=== PATIENT | male | born 1955 | race Caucasian/White ===

== ENCOUNTER 2018-12-27 14:56 | Emergency (ER) | payer OTHER, SELFPAY ==
[2018-12-27 15:02] VITALS: BP 112/68; PULSE 53; RESP 16; TEMP 36.8; O2SAT 100
--- NOTE | 2018-12-27 15:34 | ED_ITS ---
HPI - Dizziness General Chief Complaint: Dizziness Stated Complaint: dizziness during physical therapy Time Seen by Provider: 12/27/18 15:26 Source: patient Mode of arrival: Ambulatory Limitations: no limitations History of Present Illness HPI Narrative: 63-year-old male here for evaluation of lightheadedness. Patient states that it occurred after he went through physical therapy today. He recently had a CVA. Has visual deficits from this but no motor their deficits. Physical therapist took his blood pressure at home and they feel like his blood pressure was low. Patient denies any chest pain or shortness breath time. No numbness tingling in hands or feet. Related Data Home Medications Medication Instructions Recorded Confirmed amlodipine 10 mg PO DAILY 12/27/18 12/27/18 apixaban [Eliquis] 5 mg PO BID 12/27/18 12/27/18 atorvastatin 40 mg PO DAILY 12/27/18 12/27/18 hydrochlorothiazide 25 mg PO DAILY 12/27/18 12/27/18 levetiracetam 1,000 mg PO BID 12/27/18 12/27/18 losartan 50 mg PO DAILY 12/27/18 12/27/18 potassium chloride 10 meq PO DAILY 12/27/18 12/27/18 Allergies Allergy/AdvReac Type Severity Reaction Status Date / Time No Known Drug Allergies Allergy Verified 12/27/18 15:07 Review of Systems Constitutional Constitutional: Denies fever(s), Denies headache(s) and Denies weakness ENT Ears, Nose, Mouth, and Throat: Denies vertigo, Reports dizziness, Denies headache(s) and Reports disequilibrium Cardiovascular Cardiovascular: Denies chest pain, Denies syncope, Denies edema, Denies palpitations and Denies dyspnea Respiratory Respiratory: Denies cough and Denies dyspnea Gastrointestinal Gastrointestinal: Denies abdominal pain, Denies nausea and Denies vomiting Musculoskeletal Musculoskeletal: Denies myalgias, Denies arthralgias and Denies numbness Integumentary/Breasts Skin/Breast: Denies lesions and Denies rash Neurologic Neurologic: Denies confusion, Denies vertigo, Reports dizziness, Denies syncope, Denies headache(s), Denies numbness, Reports disequilibrium and Denies weakness Psychiatric Psychiatric: Denies confusion Endocrine Endocrine: Denies palpitations Hematologic/Lymphatic Hematologic/Lymphatic: Denies easy bleeding and Denies easy bruising [facility] Medical History CVA (cerebral vascular accident) (Acute) Hypertension (Acute) Social History Smoking Status: Never smoker Social History Smoking Status: Never smoker Exam Initial Vital Signs Initial Vital Signs: Vital Signs Temperature 98.3 F 12/27/18 15:02 Pulse Rate 53 L 12/27/18 15:02 Respiratory Rate 16 12/27/18 15:02 Blood Pressure 112/68 12/27/18 15:02 Pulse Oximetry 100 12/27/18 15:02 Const General: cooperative, comfortable, well developed and well groomed Orientation: alert, awake and oriented x3 HENMT Head: normal to inspection and normocephalic Resp Effort & Inspection: normal respiratory effort Auscultation: clear to auscultation bilaterally Cardio Rate: bradycardic Rhythm: regular rhythm Pulses: radial pulses present GI Inspection: non-distended Palpation: soft and No firm Skin Lesions: no lesions Rashes: no rashes Neuro General: alert, awake and oriented x3 Cognition: normal cognition Speech: speech normal Gait: normal gait Motor: muscle tone normal throughout Sensory Exam: no sensory deficits noted Other: Other than his visual deficits which are not new has normal cranial nerve exam Extrem General: normal to inspection and capillary refill normal Psych Appearance: grossly normal and well kempt Course Orders Ordered: ED Orders 12/27/18 15:04 EKG-12 Lead Stat 12/27/18 15:40 Basic Metabolic Panel Stat Complete Blood Count AUTO DIFF Stat Partial Thromboplastin Time Stat Prothrombin Time INR Stat Troponin I Stat Vital Signs Vital signs: Vital Signs - 8 hr 12/27/18 15:02 12/27/18 16:02 Temperature 98.3 F Pulse Rate 53 L Pulse Rate [Orthostatic Lying] 57 L Pulse Rate [Orthostatic Sitting] 58 L Pulse Rate [Orthostatic Standing] 56 L Respiratory Rate 16 Blood Pressure 112/68 Blood Pressure [Orthostatic Lying] 114/74 Blood Pressure [Orthostatic Sitting] 109/65 Blood Pressure [Orthostatic Standing] 97/60 Pulse Oximetry 100 MDM - Dizziness Lab Data Attestation: I reviewed the patient's lab results. Result diagrams: 12/27/18 15:40 12/27/18 15:40 Labs: Lab Results 12/27/18 12/27/18 12/27/18 Range/Units 15:40 15:40 15:40 WBC 9.3 (4.5-11.0) X10^3/uL RBC 4.97 (4.5-5.9) X10^6/uL Hgb 15.5 (13.5-17.5) g/dL Hct 44.2 (41-53) % MCV 89.1 (80-100) fL MCH 31.3 (26-34) PG MCHC 35.1 (30-36) % RDW 14.0 (11.6-14.8) % Plt Count 388 (150-400) X10^3/uL Neut % (Auto) 68.2 (50-75) % Lymph % (Auto) 18.5 L (25-40) % Victoria % (Auto) 10.9 (3-14) % Eos % (Auto) 1.8 L (2-4) % Baso % (Auto) 0.6 (0-2) % Neut # (Auto) 6300 (8638-2511) /uL Lymph # (Auto) 1700 (2159-0631) /uL Victoria # (Auto) 1000 H (0-900) /uL Eos # (Auto) 200 (0-450) /uL Baso # (Auto) 100 (0-100) /uL PT 17.7 H (10.1-12.7) SECONDS INR 1.5 H (0.9-1.3) APTT 36 (26.4-36.2) SECONDS Sodium 139 (137-145) mmol/L Potassium 4.1 (3.4-5.1) mmol/L Chloride 97 L (98-107) mmol/L Carbon Dioxide 30 (22-32) mmol/L BUN 40 H (9-20) mg/dL Creatinine 2.10 H (0.66-1.25) mg/dL Estimated GFR 32.0 L (>60) mL/min BUN/Creatinine Ratio 19.0 (6-22) Glucose 114 H (80-110) mg/dL Calcium 10.4 H (8.4-10.2) mg/dL Troponin I < 0.012 (0.01-0.034) ng/mL ECG Data Attestation: I personally reviewed and interpreted this ECG as follows: Prior ECG tracings: not available for review Interpretation: Sinus bradycardia Ventricular rate of 54 Normal axis Normal QRS Normal QTC No ST T wave changes MDM Narrative Medical decision making narrative: Other than his visual deficits patient had her relatively normal neurologic exam. Patient did not specifically meet criteria for orthostatic hypotension however his blood pressure did drop as he stood up. He was able to ambulate around the emergency department without problems. I do suspect that his symptoms today are related to his blood pressure medication. He has only been on these medications for the past 1-1.5 weeks since his CVA. I do have a low suspicion that he had a new CVA today given his history and physical exam. We will hold on further workup for now. He is going to increase his fluid intake. Is going to continue his medications. He does have a primary provider that he is going to follow up with. He expressed understanding and agreement with plan. Discharge Plan Departure Patient Disposition: Home Clinical Impression: Lightheadedness Discharge Date/Time: 12/27/18 17:17 Instructions: DI for Dizziness-Nonvertigo Activity Restrictions/Additional Instructions: I recommend you continue all of your medications as directed. Continue the other things we talked about to include being careful going from laying to sit ting and sitting to standing and also staying hydrated. Contact your primary provider for a follow-up. Return to the emergency department for any new or worsening symptoms Prescriptions: No Action losartan 50 mg tablet 50 mg PO DAILY RF: 0 atorvastatin 40 mg tablet 40 mg PO DAILY RF: 0 potassium chloride 10 mEq tablet extended release 10 meq PO DAILY RF: 0 amlodipine 10 mg tablet 10 mg PO DAILY RF: 0 hydrochlorothiazide 25 mg tablet 25 mg PO DAILY RF: 0 levetiracetam 1,000 mg tablet 1,000 mg PO BID RF: 0 Eliquis 5 mg tablet 5 mg PO BID RF: 0 Referrals: Karen Alexandra [Primary Care Provider] -
[2018-12-27 15:47] LABS: Add Manual Diff / Slide Review NO; Basophils Absolute Auto 100 /uL (0-100); Basophils Percent Auto 0.6 % (0-2); Eosinophils Absolute Auto 200 /uL (0-450); Eosinophils Percent Auto 1.8 % (2-4); Hematocrit 44.2 % (41-53); Hemoglobin 15.5 g/dL (13.5-17.5); Lymphocytes Absolute Auto 1700 /uL (1100-4500); Lymphocytes Percent Auto 18.5 % (25-40); Mean Corpuscular HGB Conc 35.1 % (30-36); Mean Corpuscular Hemoglobin 31.3 PG (26-34); Mean Corpuscular Volume 89.1 fL (80-100); Monocytes Absolute Auto 1000 /uL (0-900); Monocytes Percent Auto 10.9 % (3-14); Neutrophils Absolute Auto 6300 /uL (1500-7000); Neutrophils Percent Auto 68.2 % (50-75); Platelet Count 388 X10^3/uL (150-400); Red Blood Cell Count 4.97 X10^6/uL (4.5-5.9); White Blood Cell Count 9.3 X10^3/uL (4.5-11.0)
[2018-12-27 15:58] LABS: INR 1.5 (0.9-1.3); Prothrombin Time 17.7 SECONDS (10.1-12.7)
[2018-12-27 16:00] LABS: PTT Partial Thromboplastin Tim 36 SECONDS (26.4-36.2)
[2018-12-27 16:02] VITALS: BP 109/65; BP 114/74; BP 97/60; PULSE 56; PULSE 57; PULSE 58
[2018-12-27 16:04] LABS: Blood Urea Nitrogen 40 mg/dL (9-20); Calcium 10.4 mg/dL (8.4-10.2); Carbon Dioxide 30 mmol/L (22-32); Chloride 97 mmol/L (98-107); Glucose 114 mg/dL (80-110); HEMOLYSIS < 15 (0-50); Potassium 4.1 mmol/L (3.4-5.1); Sodium 139 mmol/L (137-145)
[2018-12-27 16:15] LABS: Troponin I < 0.012 ng/mL (0.01-0.034)
--- NOTE | 2018-12-27 17:20 | PC.NURSE ---
pt states had CVA 2 weeks ago and on several new medications.
== END 2018-12-27 17:17 | disposition home or self-care (01) ==
PROVIDERS: Emergency Provider Emergency Medicine; PCP Acupuncturist
DX: R42 Dizziness and giddiness (principal)
CPT/HCPCS: 36415; 80048; 84484; 85025; 85610; 85730; 93005; 99283; 99284

== ENCOUNTER 2019-03-12 14:30 | Outpatient (RCR) | payer OTHER, SELFPAY ==
--- NOTE | 2018-12-26 17:51 | PT.OIE ---
Current Diagnoses Cerebral infarction, unspecified (12/25/18) Visit Care Team Role Provider Type Karen Alexandra Primary Care Provider Non-Staff Specialty: Family Practice Address: [address] [place] [address], [facility] Email: Doctor Crystal MD Attending Provider Non-Staff Specialty: Medical Address: Phone: Fax: Email: Physical Therapy Initial Evaluation PT-OP-A Visit Information Start: 12/25/18 09:04 Freq: Status: Active Protocol: Document 12/25/18 11:15 [facility] (Rec: 12/26/18 14:24 [facility] [email or web address]) Out-Patient Physical Therapy Visit Information Visit Information Visit Type Initial Evaluation Visit Note 63 year old male who was admitted to [facility] via ER on with c/o left VF defect and neglect as well as impaired mobility, left sided weakness, impaired cognition, and visual deficits ( left hemianopsia). Head CT showed right P2-3 thrombus and right vertebral artery occlusion. Diagnosis of a right occipital stroke. He was discharged from last week and came up to [place] with his to stay with her daughter while he recovers. He and his live in [place] area Visit Start Time 11:15 Visit Stop Time 12:00 Total Visit Minutes 45 Visit Number 1 Evaluation Information Evaluation Date 12/25/18 PT-OP-B Current Condition Start: 12/25/18 09:04 Freq: Status: Active Protocol: Document 12/25/18 11:15 [facility] (Rec: 12/26/18 14:24 [facility] [email or web address]) Current Condition History of Current Condition Onset Date 12/08/18 History of Current Condition 63 year old male s/p right occipital stroke on 12/08/18(CTA head and neck showed L veretebral aretry segmental occlusion and occlusion of the right CLINICAL RESEARCH NURSE COORDINATOR) He was discharged on 12/18/18 from [facility] where he underwent neuro rehab. His greatest complaint at this time is left sided visual field cut and left sided scanning. The patients was present for his evaluation and she notes Alvin is significantly fatigued during the day. The drive from [place] to [place] was a lot of sensory overload for him and he had a very severe headache when they arrived in [place]. He is still getting headaches with too much stimulation. The headaches are behind his left eye. He also notes that he will become dizzy and lean to the left into a wall for support. He was sent to PT for gait and balance training especially with navigation in more complex environments as he is limited with his visual impairments. He is also seeing speech and OT. Other past medical history includes HTN, seizure, splenic lesions of unknown etiology, Bradycardia Treatment Goals Patient/Caregiver Goals Alvin's goals include improved vision out of the left eye, improved energy, decreased fatigue and dizzyness, decreased c/o headaches Prior Functional Status Baseline Function- ADL's Independent Baseline Function- Mobility Independent PT-OP-D Balance Start: 12/26/18 13:56 Freq: Status: Active Protocol: Document 12/25/18 11:15 [facility] (Rec: 12/26/18 14:24 [facility] [email or web address]) Collazo Balance Assessment Evaluation Sitting to Standing Ability Independent w/out Hands Unsupported Stance Supervision- 2 minutes Sitting Unsupported, Feet on Floor Safely- 2 minutes Standing to Sitting Ability Safely, Minimal Hand Use Transfer Ability Safely, Hand Use Unsupported Stance- Eyes Closed Safely, With Eyes Open Unsupported Stance- Eyes Open Independent, 1 minute Reaching Forward Standing Safely, 5 inches Pick- Up Object From Floor Supervision Look Behind Shoulder - Standing Shifts Weight Well Turning 360 Degrees Turns Bilateral, < 4 secs Unsupported Stance, Alternating Feet on 4 Steps w/Supervision Stair Unsupported Tandem Stance Small Step- 30 seconds Unilateral Leg Stance Lifts Leg/Holds > 3 secs Total Score Collazo Total Score (out of 56 points) 43 Collazo Impairment Rating 40 to 59% Impaired (Score 23- 33) PT-OP-G Mobility & Gait Start: 12/25/18 09:04 Freq: Status: Active Protocol: Document 12/25/18 13:00 [facility] (Rec: 12/26/18 17:10 [facility] [email or web address]) OP Mobility Evaluation Bed Mobility Rolling WNL Supine to and from Sit WNL IND Functional Movements Squats able to perform a squat and lunge but does lose balance a little on the lunge OP Gait Assessment Comments Gait Comments with head turns during Gait Alvin did find himself veering off to the left. He has difficulty scanning objects on his left while walking PT-OP-H Neuro Start: 12/25/18 09:04 Freq: Status: Active Protocol: Document 12/25/18 13:00 [facility] (Rec: 12/26/18 17:11 [facility] [email or web address]) Sensation Evaluation Gross Sensation Gross Sensation WNL Muscle Tone Tone Assessment Left Upper Extremity Flexor Tone Description Normal Extensor Tone Description Normal PT-OP-M Strength Start: 12/26/18 13:56 Freq: Status: Active Protocol: Document 12/25/18 13:00 [facility] (Rec: 12/26/18 17:10 [facility] [email or web address]) Cervical Spine Strength Cervical Spine Manual Muscle Testing Reason Not Measured WFL Elbow/Forearm Strength Elbow and Forearm Manual Muscle Testing Right Flexion (C6) 5 Normal Extension (C7) 5 Normal Pronation 5 Normal Supination 5 Normal Left Flexion (C6) 5 Normal Extension (C7) 5 Normal Pronation 5 Normal Supination 5 Normal Hip Strength Hip Manual Muscle Testing Right Flexion (L2) 4 Good Extension (S1) 4 Good Abduction 4 Good Left Flexion (L2) 4 Good Extension (S1) 4 Good Abduction 4 Good Adduction 5 Normal External Rotation 5 Normal Internal Rotation 5 Normal Knee Strength Knee Manual Muscle Testing Right Flexion (S2) 5 Normal Extension (L3) 5 Normal Left Flexion (S2) 4+ Good+ Extension (L3) 4+ Good+ PT-OP-T Assessment and Plan Start: 12/26/18 17:11 Freq: Status: Active Protocol: Document 12/25/18 17:11 [facility] (Rec: 12/26/18 17:14 [facility] [email or web address]) Physical Therapy Assessment Rehab Potential Rehabilitation Potential Good Evaluation Complexity Number of Personal Factors/Comorbidities 1-2 Number of Body Systems Impaired 3 Clinical Presentation at Evaluation Evolving Impairments Impairments Activity Tolerance,Balance, Functional Activities,Gait, Vestibular,Visual Motor Other Impairments per report from pt needed min to moderate cuing for pathfinding in simple environments and max cuing in new environments. Today with gait assessment he was able to follow commands but we haven' t yet tried navigating in more crowed environments Goals Three Impairment difficulty with left sided scanning activities for community mobility Billposting Supervisor Goal (LTG) Improve navigation and left sided scanning for safety ambulating in the community LTG Duration 8 weeks Two Impairment fatigue limiting endurance and poor control with stand to sit once fatigued Long-Term Goal (LTG) Alvin is able to increase endurance to tolerate 45 min of higher level balance training and exercise LTG Duration 8 weeks One Impairment Decreased balance with 43/56 Collazo balance test Billposting Supervisor Goal (LTG) Alvin is able to increase his score on the Collazo balance test by 8-10 points LTG Duration 8 weeks Assessment Summary Assessment Alvin is a 63 year old malw s/o right occipital stroke, admitted to [facility] on 12/08/18. CTA head and neck showed L vertebral artery segmental occlusion and occlusion of the right CLINICAL RESEARCH NURSE COORDINATOR. He was transvered to [facility] 12/14 for rehab and was [place] . Alvin lives with his spouse in [place] however is staying in [place] at this time with his 's daughter. His chief complaint today is of left visual field deficits, left sided orbital headaches, easily becomming over stimulated with riding in a car and high fatigue levels . He is limited and impaired by his reading ability, difficulty using signs to help navigate. With evaluation today Alvin did show some minor difficulties with balance but he reports he has always had trouble with things like heel toe walk so I am not sure of what his full base line it. He has difficulty with tandem stance activities and single leg balance. His vision impairment makes it difficult to navigate through more complex environments but today with gait evaluation he did not demonstrate any loss of balance. He did seem very fatigued following balance exercises and needs cues to sit without plopping down. He will benefit from PT to address higher level balance issues, stragegies for safely managing his environment, and providing necessary family education. Physical Therapy Plan Frequency and Duration Frequency of Treatment 3x/Week Duration of Treatment 8 Plan of Care Start Date 12/25/18 Plan of Care End Date 02/19/19 Therapeutic Interventions Therapeutic Interventions Balance Training,Gait Training ,Home Exercise Program, Neuromuscular Re-education, Patient/Caregiver Education, Self-Care/Home Management, Therapeutic Exercises, Vestibular Rehabilitation
--- NOTE | 2018-12-27 18:01 | PT.OTN ---
Current Diagnoses Cerebral infarction, unspecified (12/27/18) Physical Therapy Treatment Note PT-OP-A Visit Information Start: 12/25/18 09:04 Freq: Status: Active Protocol: Document 12/27/18 17:51 [facility] (Rec: 12/27/18 18:01 [facility] [email or web address]) Out-Patient Physical Therapy Visit Information Visit Information Visit Type Treatment Note Visit Start Time 13:52 Visit Stop Time 14:56 Total Visit Minutes 64 Visit Number 2 Number of INDUSTRIAL TECHNICIAN Visits 0 PT-OP-B Current Condition Start: 12/25/18 09:04 Freq: Status: Active Protocol: Document 12/25/18 11:15 [facility] (Rec: 12/26/18 14:24 [facility] [email or web address]) Current Condition History of Current Condition Onset Date 12/08/18 History of Current Condition 63 year old male s/p right occipital stroke on 12/08/18(CTA head and neck showed L veretebral aretry segmental occlusion and 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 His greatest complaint at this time is left sided visual field cut and left sided scanning. The patients was present for his evaluation and she notes Alvin is significantly fatigued during the day. The drive from [place] to [place] was a lot of sensory overload for him and he had a very severe headache when they arrived in [place]. He is still getting headaches with too much stimulation. The headaches are behind his left eye. He also notes that he will become dizzy and lean to the left into a wall for support. He was sent to PT for gait and balance training especially with navigation in more complex environments as he is limited with his visual impairments. He is also seeing speech and OT. Other past medical history includes HTN, seizure, splenic lesions of unknown etiology, Bradycardia Treatment Goals Patient/Caregiver Goals Alvin's goals include improved vision out of the left eye, improved energy, decreased fatigue and dizzyness, decreased c/o headaches Prior Functional Status Baseline Function- ADL's Independent Baseline Function- Mobility Independent PT-OP-C Subjective Start: 12/25/18 09:04 Freq: Status: Active Protocol: Document 12/27/18 17:51 [facility] (Rec: 12/27/18 18:01 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 PT-OP-D Balance Start: 12/26/18 13:56 Freq: Status: Active Protocol: Document 12/25/18 11:15 [facility] (Rec: 12/26/18 14:24 [facility] [email or web address]) Collazo Balance Assessment Evaluation Sitting to Standing Ability Independent w/out Hands Unsupported Stance Supervision- 2 minutes Sitting Unsupported, Feet on Floor Safely- 2 minutes Standing to Sitting Ability Safely, Minimal Hand Use Transfer Ability Safely, Hand Use Unsupported Stance- Eyes Closed Safely, With Eyes Open Unsupported Stance- Eyes Open Independent, 1 minute Reaching Forward Standing Safely, 5 inches Pick- Up Object From Floor Supervision Look Behind Shoulder - Standing Shifts Weight Well Turning 360 Degrees Turns Bilateral, < 4 secs Unsupported Stance, Alternating Feet on 4 Steps w/Supervision Stair Unsupported Tandem Stance Small Step- 30 seconds Unilateral Leg Stance Lifts Leg/Holds > 3 secs Total Score Collazo Total Score (out of 56 points) 43 Collazo Impairment Rating 40 to 59% Impaired (Score 23- 33) PT-OP-G Mobility & Gait Start: 12/25/18 09:04 Freq: Status: Active Protocol: Document 12/25/18 13:00 [facility] (Rec: 12/26/18 17:10 [facility] [email or web address]) OP Mobility Evaluation Bed Mobility Rolling WNL Supine to and from Sit WNL IND Functional Movements Squats able to perform a squat and lunge but does lose balance a little on the lunge OP Gait Assessment Comments Gait Comments with head turns during Gait Alvin did find himself veering off to the left. He has difficulty scanning objects on his left while walking PT-OP-H Neuro Start: 12/25/18 09:04 Freq: Status: Active Protocol: Document 12/25/18 13:00 [facility] (Rec: 12/26/18 17:11 [facility] [email or web address]) Sensation Evaluation Gross Sensation Gross Sensation WNL Muscle Tone Tone Assessment Left Upper Extremity Flexor Tone Description Normal Extensor Tone Description Normal PT-OP-M Strength Start: 12/26/18 13:56 Freq: Status: Active Protocol: Document 12/25/18 13:00 [facility] (Rec: 12/26/18 17:10 [facility] [email or web address]) Cervical Spine Strength Cervical Spine Manual Muscle Testing Reason Not Measured WFL Elbow/Forearm Strength Elbow and Forearm Manual Muscle Testing Right Flexion (C6) 5 Normal Extension (C7) 5 Normal Pronation 5 Normal Supination 5 Normal Left Flexion (C6) 5 Normal Extension (C7) 5 Normal Pronation 5 Normal Supination 5 Normal Hip Strength Hip Manual Muscle Testing Right Flexion (L2) 4 Good Extension (S1) 4 Good Abduction 4 Good Left Flexion (L2) 4 Good Extension (S1) 4 Good Abduction 4 Good Adduction 5 Normal External Rotation 5 Normal Internal Rotation 5 Normal Knee Strength Knee Manual Muscle Testing Right Flexion (S2) 5 Normal Extension (L3) 5 Normal Left Flexion (S2) 4+ Good+ Extension (L3) 4+ Good+ PT-OP-Q Treatments Start: 12/26/18 17:11 Freq: Status: Active Protocol: Document 12/27/18 17:51 [facility] (Rec: 12/27/18 18:01 [facility] [email or web address]) Gym Equipment Shuttle Balance blue clips Details fwd: WBOS & NBOS Comments w/head turns Therapeutic Exercises Standing Exercises lunges Side bilateral Reps/Minutes 10 squats Standing Exercise Name w/ rail in front Side bilateral Reps/Minutes 12 heel raises Side bilateral Reps/Minutes 8 Neuro Re-Education Treatment Balance Activities head turns Details walking hallways with horizontal & vertical head turns Reps/Duration 4x50ft 2 Details NBOS, staggered stance standing & tandem standing Comments done B with significant difficulty with tandem stance 1 Details hurdles Comments 1x without and 5x w/blue and green tpads btwn Self-Care/Home Management Treatment Education Other Education edu on importance of strengthening exercises Activities Self-Care/Home Management Activities BP taken 3 times and 1x attempted in standing but pt had to sit before BP complete. Edu on needing to be seen by PT-OP-T Assessment and Plan Start: 12/26/18 17:11 Freq: Status: Active Protocol: Document 12/27/18 17:51 [facility] (Rec: 12/27/18 18:01 [facility] [email or web address]) Physical Therapy Assessment Goals Three Impairment difficulty with left sided scanning activities for community mobility Lead Engineer Goal (LTG) Improve navigation and left sided scanning for safety ambulating in the community LTG Duration 8 weeks Two Impairment fatigue limiting endurance and poor control with stand to sit once fatigued Half-Way Goal (LTG) Alvin is able to increase endurance to tolerate 45 min of higher level balance training and exercise LTG Duration 8 weeks One Impairment Decreased balance with 43/56 Collazo balance test Lead Engineer Goal (LTG) Alvin is able to increase his score on the Collazo balance test by 8-10 points LTG Duration 8 weeks Assessment Summary Assessment Pt had difficulty with balance tasks, especially with changes in JOSEPH or unstable surfaces. He fatigued with exercise and would require a standing or sitting rest break or change of activity. Pt completed entire session feeling okay w/ no c/o lightheadedness or dizziness until after last exercise. Pt sat down and BP was taken and was 124/62, which is low for patient. He was given water and rested. He felt better, so stood and asked about an exercise for home for his calves. D/t pt still feeling okay, pt was given calf raises and was able to do about 8 before starting to feel light headed again so was seated. Bp was 122/62. got his sun glasses to help with stimuli and pt reported feeling better . Stood again but felt lightheaded so sat again and BP was 100/58. Discussed with pt and re: going to ER d/ t low BP and lightheaded feeling when standing. They were agreeable, so pt was transferred to a chair and brought to ER to check in. Pt no longer felt lightheaded sitting and was left with and ER staff. Physical Therapy Plan Frequency and Duration Frequency of Treatment 3x/Week Duration of Treatment 8 Plan of Care Start Date 12/25/18 Plan of Care End Date 02/19/19 Next Visit Focus/Plan Next Note Type Treatment Note Next Visit Plan Work on unstable surface training, head turns or EC in staggered stance or NBOS
--- NOTE | 2019-01-01 09:52 | PT.OTN ---
Current Diagnoses Cerebral infarction, unspecified (01/01/19) Physical Therapy Treatment Note PT-OP-A Visit Information Start: 12/25/18 09:04 Freq: Status: Active Protocol: Document 01/01/19 09:10 [facility] (Rec: 01/01/19 09:49 [facility] [id number]) Out-Patient Physical Therapy Visit Information Visit Information Visit Type Treatment Note Visit Start Time 09:00 Visit Stop Time 09:45 Total Visit Minutes 45 Visit Number 3 PT-OP-B Current Condition Start: 12/25/18 09:04 Freq: Status: Active Protocol: Document 12/25/18 11:15 [facility] (Rec: 12/26/18 14:24 [facility] [email or web address]) Current Condition History of Current Condition Onset Date 12/08/18 History of Current Condition 63 year old male s/p right occipital stroke on 12/08/18(CTA head and neck showed L veretebral aretry segmental occlusion and 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 His greatest complaint at this time is left sided visual field cut and left sided scanning. The patients was present for his evaluation and she notes Alvin is significantly fatigued during the day. The drive from [place] to [place] was a lot of sensory overload for him and he had a very severe headache when they arrived in [place]. He is still getting headaches with too much stimulation. The headaches are behind his left eye. He also notes that he will become dizzy and lean to the left into a wall for support. He was sent to PT for gait and balance training especially with navigation in more complex environments as he is limited with his visual impairments. He is also seeing speech and OT. Other past medical history includes HTN, seizure, splenic lesions of unknown etiology, Bradycardia Treatment Goals Patient/Caregiver Goals Alvin's goals include improved vision out of the left eye, improved energy, decreased fatigue and dizzyness, decreased c/o headaches Prior Functional Status Baseline Function- ADL's Independent Baseline Function- Mobility Independent PT-OP-C Subjective Start: 12/25/18 09:04 Freq: Status: Active Protocol: Document 01/01/19 09:10 [facility] (Rec: 01/01/19 09:49 [facility] [id number]) OP-PT Subjective Patient Comments Patient Comments pt reports he has been drinking a lot of water and trying to take it easy. HE notes that the mental puzzles in speech therapy last visit prior to his PT appointment really tired him out PT-OP-D Balance Start: 12/26/18 13:56 Freq: Status: Active Protocol: Document 12/25/18 11:15 [facility] (Rec: 12/26/18 14:24 [facility] [email or web address]) Collazo Balance Assessment Evaluation Sitting to Standing Ability Independent w/out Hands Unsupported Stance Supervision- 2 minutes Sitting Unsupported, Feet on Floor Safely- 2 minutes Standing to Sitting Ability Safely, Minimal Hand Use Transfer Ability Safely, Hand Use Unsupported Stance- Eyes Closed Safely, With Eyes Open Unsupported Stance- Eyes Open Independent, 1 minute Reaching Forward Standing Safely, 5 inches Pick- Up Object From Floor Supervision Look Behind Shoulder - Standing Shifts Weight Well Turning 360 Degrees Turns Bilateral, < 4 secs Unsupported Stance, Alternating Feet on 4 Steps w/Supervision Stair Unsupported Tandem Stance Small Step- 30 seconds Unilateral Leg Stance Lifts Leg/Holds > 3 secs Total Score Collazo Total Score (out of 56 points) 43 Collazo Impairment Rating 40 to 59% Impaired (Score 23- 33) PT-OP-G Mobility & Gait Start: 12/25/18 09:04 Freq: Status: Active Protocol: Document 12/25/18 13:00 [facility] (Rec: 12/26/18 17:10 [facility] [email or web address]) OP Mobility Evaluation Bed Mobility Rolling WNL Supine to and from Sit WNL IND Functional Movements Squats able to perform a squat and lunge but does lose balance a little on the lunge OP Gait Assessment Comments Gait Comments with head turns during Gait Alvin did find himself veering off to the left. He has difficulty scanning objects on his left while walking PT-OP-H Neuro Start: 12/25/18 09:04 Freq: Status: Active Protocol: Document 12/25/18 13:00 [facility] (Rec: 12/26/18 17:11 [facility] [email or web address]) Sensation Evaluation Gross Sensation Gross Sensation WNL Muscle Tone Tone Assessment Left Upper Extremity Flexor Tone Description Normal Extensor Tone Description Normal PT-OP-M Strength Start: 12/26/18 13:56 Freq: Status: Active Protocol: Document 12/25/18 13:00 [facility] (Rec: 12/26/18 17:10 [facility] [email or web address]) Cervical Spine Strength Cervical Spine Manual Muscle Testing Reason Not Measured WFL Elbow/Forearm Strength Elbow and Forearm Manual Muscle Testing Right Flexion (C6) 5 Normal Extension (C7) 5 Normal Pronation 5 Normal Supination 5 Normal Left Flexion (C6) 5 Normal Extension (C7) 5 Normal Pronation 5 Normal Supination 5 Normal Hip Strength Hip Manual Muscle Testing Right Flexion (L2) 4 Good Extension (S1) 4 Good Abduction 4 Good Left Flexion (L2) 4 Good Extension (S1) 4 Good Abduction 4 Good Adduction 5 Normal External Rotation 5 Normal Internal Rotation 5 Normal Knee Strength Knee Manual Muscle Testing Right Flexion (S2) 5 Normal Extension (L3) 5 Normal Left Flexion (S2) 4+ Good+ Extension (L3) 4+ Good+ PT-OP-Q Treatments Start: 12/26/18 17:11 Freq: Status: Active Protocol: Document 01/01/19 09:10 [facility] (Rec: 01/01/19 09:49 [facility] [id number]) Gym Equipment Shuttle Rebound 10 Exercise Details shuttle squats Reps/Duration 3 x 10 75 # Shuttle Balance blue clips Details fwd: WBOS & NBOS Comments w/head turns legs became fatigued after this exercise Therapeutic Exercises Standing Exercises 2 Standing Exercise Name warrior two yoga pose with balance 1 Standing Exercise Name calf stretch Comments sean lunges Side bilateral Reps/Minutes 10 squats Standing Exercise Name w/ rail in front Side bilateral Reps/Minutes 12 heel raises Side bilateral Reps/Minutes 8 Neuro Re-Education Treatment Balance Activities 2 Details NBOS, staggered stance standing & tandem standing Comments done B with significant difficulty with tandem stance PT-OP-T Assessment and Plan Start: 12/26/18 17:11 Freq: Status: Active Protocol: Document 01/01/19 09:10 [facility] (Rec: 01/01/19 09:49 [facility] [id number]) Physical Therapy Assessment Assessment Summary Assessment no loss of balance today or drop in blood pressure. Alvin did become fatigued easily so we took frequent rest breaks Physical Therapy Plan Next Visit Focus/Plan Next Note Type Treatment Note Next Visit Plan Work on unstable surface training, head turns or EC in staggered stance or NBOS
--- NOTE | 2019-01-08 17:38 | PT.OTN ---
Current Diagnoses Cerebral infarction, unspecified (01/08/19) Physical Therapy Treatment Note PT-OP-A Visit Information Start: 12/25/18 09:04 Freq: Status: Active Protocol: Document 01/08/19 09:00 AMH (Rec: 01/08/19 09:45 AMH [id number]) Out-Patient Physical Therapy Visit Information Visit Information Visit Type Treatment Note Visit Start Time 09:00 Visit Stop Time 09:45 Total Visit Minutes 45 Visit Number 4 Evaluation Information Evaluation Date 12/25/18 PT-OP-B Current Condition Start: 12/25/18 09:04 Freq: Status: Active Protocol: Document 12/25/18 11:15 AMH (Rec: 12/26/18 14:24 AMH [email or web address]) Current Condition History of Current Condition Onset Date 12/08/18 History of Current Condition 63 year old male s/p right occipital stroke on 12/08/18(CTA head and neck showed L veretebral aretry segmental occlusion and 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 His greatest complaint at this time is left sided visual field cut and left sided scanning. The patients was present for his evaluation and she notes Alvin is significantly fatigued during the day. The drive from [place] to [place] was a lot of sensory overload for him and he had a very severe headache when they arrived in [place]. He is still getting headaches with too much stimulation. The headaches are behind his left eye. He also notes that he will become dizzy and lean to the left into a wall for support. He was sent to PT for gait and balance training especially with navigation in more complex environments as he is limited with his visual impairments. He is also seeing speech and OT. Other past medical history includes HTN, seizure, splenic lesions of unknown etiology, Bradycardia Treatment Goals Patient/Caregiver Goals Alvin's goals include improved vision out of the left eye, improved energy, decreased fatigue and dizzyness, decreased c/o headaches Prior Functional Status Baseline Function- ADL's Independent Baseline Function- Mobility Independent PT-OP-C Subjective Start: 12/25/18 09:04 Freq: Status: Active Protocol: Document 01/08/19 09:00 AMH (Rec: 01/08/19 09:45 AMH [id number]) OP-PT Subjective Patient Comments Patient Comments Family has decided to keep with one appointment per day as doing more than one discipline is fatiguing Alvin too much. He is feeling like balance is improving, no loss of balance at home Patient Reported Progress Improving PT-OP-D Balance Start: 12/26/18 13:56 Freq: Status: Active Protocol: Document 12/25/18 11:15 AMH (Rec: 12/26/18 14:24 [facility] [email or web address]) Collazo Balance Assessment Evaluation Sitting to Standing Ability Independent w/out Hands Unsupported Stance Supervision- 2 minutes Sitting Unsupported, Feet on Floor Safely- 2 minutes Standing to Sitting Ability Safely, Minimal Hand Use Transfer Ability Safely, Hand Use Unsupported Stance- Eyes Closed Safely, With Eyes Open Unsupported Stance- Eyes Open Independent, 1 minute Reaching Forward Standing Safely, 5 inches Pick- Up Object From Floor Supervision Look Behind Shoulder - Standing Shifts Weight Well Turning 360 Degrees Turns Bilateral, < 4 secs Unsupported Stance, Alternating Feet on 4 Steps w/Supervision Stair Unsupported Tandem Stance Small Step- 30 seconds Unilateral Leg Stance Lifts Leg/Holds > 3 secs Total Score Collazo Total Score (out of 56 points) 43 Collazo Impairment Rating 40 to 59% Impaired (Score 23- 33) PT-OP-G Mobility & Gait Start: 12/25/18 09:04 Freq: Status: Active Protocol: Document 12/25/18 13:00 [facility] (Rec: 12/26/18 17:10 [facility] [email or web address]) OP Mobility Evaluation Bed Mobility Rolling WNL Supine to and from Sit WNL IND Functional Movements Squats able to perform a squat and lunge but does lose balance a little on the lunge OP Gait Assessment Comments Gait Comments with head turns during Gait Alvin did find himself veering off to the left. He has difficulty scanning objects on his left while walking PT-OP-H Neuro Start: 12/25/18 09:04 Freq: Status: Active Protocol: Document 12/25/18 13:00 [facility] (Rec: 12/26/18 17:11 [facility] [email or web address]) Sensation Evaluation Gross Sensation Gross Sensation WNL Muscle Tone Tone Assessment Left Upper Extremity Flexor Tone Description Normal Extensor Tone Description Normal PT-OP-M Strength Start: 12/26/18 13:56 Freq: Status: Active Protocol: Document 12/25/18 13:00 [facility] (Rec: 12/26/18 17:10 [facility] [email or web address]) Cervical Spine Strength Cervical Spine Manual Muscle Testing Reason Not Measured WFL Elbow/Forearm Strength Elbow and Forearm Manual Muscle Testing Right Flexion (C6) 5 Normal Extension (C7) 5 Normal Pronation 5 Normal Supination 5 Normal Left Flexion (C6) 5 Normal Extension (C7) 5 Normal Pronation 5 Normal Supination 5 Normal Hip Strength Hip Manual Muscle Testing Right Flexion (L2) 4 Good Extension (S1) 4 Good Abduction 4 Good Left Flexion (L2) 4 Good Extension (S1) 4 Good Abduction 4 Good Adduction 5 Normal External Rotation 5 Normal Internal Rotation 5 Normal Knee Strength Knee Manual Muscle Testing Right Flexion (S2) 5 Normal Extension (L3) 5 Normal Left Flexion (S2) 4+ Good+ Extension (L3) 4+ Good+ PT-OP-Q Treatments Start: 12/26/18 17:11 Freq: Status: Active Protocol: Document 01/08/19 09:00 [facility] (Rec: 01/08/19 09:45 [facility] [id number]) Cardio Equipment Recumbent Elliptical ([employer]iodPowerPlay Mobile) Duration (Minutes) 6 Resistance 5 Gym Equipment Shuttle Rebound 10 Exercise Details shuttle squats Reps/Duration 3 x 10 75 # Therapeutic Exercises Standing Exercises 2 Standing Exercise Name warrior two yoga pose with balance 1 Standing Exercise Name calf stretch Comments sean lunges Side bilateral Reps/Minutes 10 squats Standing Exercise Name w/ rail in front Side bilateral Reps/Minutes 12 heel raises Side bilateral Reps/Minutes 8 Neuro Re-Education Treatment Balance Activities 4 Details alternating toe taps on 6 steps 3 Details single leg stance in parallel bars head turns Details gait with head turns 2 Details NBOS, staggered stance standing & tandem standing Comments done B with significant difficulty with tandem stance 1 Details gait with change of direction PT-OP-T Assessment and Plan Start: 12/26/18 17:11 Freq: Status: Active Protocol: Document 01/08/19 09:00 [facility] (Rec: 01/08/19 09:45 [facility] [id number]) Physical Therapy Assessment Assessment Summary Assessment Doing better overall with balance today including single leg stance Alvin is still becomming fatigued easily. His legs fatigue quickly with exercise and he needs frequent rest breaks Physical Therapy Plan Frequency and Duration Frequency of Treatment 3x/Week Duration of Treatment 8 Plan of Care Start Date 12/25/18 Plan of Care End Date 02/19/19 Next Visit Focus/Plan Next Note Type Treatment Note Next Visit Plan Work on unstable surface training, head turns or EC in staggered stance or NBOS
--- NOTE | 2019-03-12 15:37 | PT.OTRE ---
Current Diagnoses Cerebral infarction, unspecified (03/12/19) Past Medical History (Last Reviewed 12/27/18 @ 18:19 by Rob Godoy DO) CVA (cerebral vascular accident) (Acute) Hypertension (Acute) Visit Care Team Role Provider Type Karen Alexandra Primary Care Provider Non-Staff Specialty: Family Practice Address: [address] [place] [address], [phone] Email: Isa Arango Attending Provider Non-Staff Specialty: Physical Medicine and Rehab Address: [address] [place] [address], [phone] Email: Physical Therapy Re-Evaluation PT-OP-A Visit Information Start: 12/25/18 09:04 Freq: Status: Active Protocol: Document 03/12/19 14:30 HH (Rec: 03/12/19 15:34 HH [id number]) Out-Patient Physical Therapy Visit Information Visit Information Visit Type Re-Evaluation Visit Note last visit = 01/08/19 Visit Start Time 14:30 Visit Stop Time 15:10 Total Visit Minutes 40 Visit Number 5 PT-OP-B Current Condition Start: 12/25/18 09:04 Freq: Status: Active Protocol: Document 12/25/18 11:15 AMH (Rec: 12/26/18 14:24 AMH [email or web address]) Current Condition History of Current Condition Onset Date 12/08/18 History of Current Condition 63 year old male s/p right occipital stroke on 12/08/18(CTA head and neck showed L veretebral aretry segmental occlusion and 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 His greatest complaint at this time is left sided visual field cut and left sided scanning. The patients was present for his evaluation and she notes Alvin is significantly fatigued during the day. The drive from [place] to [place] was a lot of sensory overload for him and he had a very severe headache when they arrived in [place]. He is still getting headaches with too much stimulation. The headaches are behind his left eye. He also notes that he will become dizzy and lean to the left into a wall for support. He was sent to PT for gait and balance training especially with navigation in more complex environments as he is limited with his visual impairments. He is also seeing speech and OT. Other past medical history includes HTN, seizure, splenic lesions of unknown etiology, Bradycardia Treatment Goals Patient/Caregiver Goals Alvin's goals include improved vision out of the left eye, improved energy, decreased fatigue and dizzyness, decreased c/o headaches Prior Functional Status Baseline Function- ADL's Independent Baseline Function- Mobility Independent PT-OP-C Subjective Start: 12/25/18 09:04 Freq: Status: Active Protocol: Document 03/12/19 14:30 HH (Rec: 03/12/19 15:34 [id number]) OP-PT Subjective Patient Comments Patient Comments I dont have any complaints at this point except im strill very cautious walking around and climbing stairs due to my visual deficits. Im moving back to [place] next week so im here to make sure everything is okay. Patient Reported Progress Improving PT-OP-D Balance Start: 12/26/18 13:56 Freq: Status: Active Protocol: Document 03/12/19 14:30 HH (Rec: 03/12/19 15:34 [id number]) Balance Tests Nice Balance Test Nice Balance Test Score 56 Nice Impairment Rating 0% Impaired (Score 56) PT-OP-G Mobility & Gait Start: 12/25/18 09:04 Freq: Status: Active Protocol: Document 12/25/18 13:00 AMH (Rec: 12/26/18 17:10 AMH [email or web address]) OP Mobility Evaluation Bed Mobility Rolling WNL Supine to and from Sit WNL IND Functional Movements Squats able to perform a squat and lunge but does lose balance a little on the lunge OP Gait Assessment Comments Gait Comments with head turns during Gait Alvin did find himself veering off to the left. He has difficulty scanning objects on his left while walking PT-OP-H Neuro Start: 12/25/18 09:04 Freq: Status: Active Protocol: Document 03/12/19 14:30 (Rec: 03/12/19 15:34 [id number]) Sensation Evaluation Gross Sensation Gross Sensation WNL Deep Tendon Reflex & Clonus Assessment Deep Tendon Reflex Bilateral Achilles Deep Tendon Reflex 2+ Normal Bilateral Patellar Deep Tendon Reflex 2+ Normal Bilateral Brachioradialis Deep Tendon Reflex 2+ Normal Bilateral Tricep Deep Tendon Reflex 2+ Normal Bilateral Bicep Deep Tendon Reflex 2+ Normal Ankle Clonus Bilateral Clonus Assessment Absent PT-OP-M Strength Start: 12/26/18 13:56 Freq: Status: Active Protocol: Document 12/25/18 13:00 AMH (Rec: 12/26/18 17:10 AMH [email or web address]) Cervical Spine Strength Cervical Spine Manual Muscle Testing Reason Not Measured WFL Elbow/Forearm Strength Elbow and Forearm Manual Muscle Testing Right Flexion (C6) 5 Normal Extension (C7) 5 Normal Pronation 5 Normal Supination 5 Normal Left Flexion (C6) 5 Normal Extension (C7) 5 Normal Pronation 5 Normal Supination 5 Normal Hip Strength Hip Manual Muscle Testing Right Flexion (L2) 4 Good Extension (S1) 4 Good Abduction 4 Good Left Flexion (L2) 4 Good Extension (S1) 4 Good Abduction 4 Good Adduction 5 Normal External Rotation 5 Normal Internal Rotation 5 Normal Knee Strength Knee Manual Muscle Testing Right Flexion (S2) 5 Normal Extension (L3) 5 Normal Left Flexion (S2) 4+ Good+ Extension (L3) 4+ Good+ PT-OP-Q Treatments Start: 12/26/18 17:11 Freq: Status: Active Protocol: Document 03/12/19 14:30 HH (Rec: 03/12/19 15:36 HH [id number]) Self-Care/Home Management Treatment Education Other Education Educated pt to put driving and biking on hold due to his residual L visual field deficit. Also rec him to [employer] gym program for mobility and strength maintainence. PT-OP-T Assessment and Plan Start: 12/26/18 17:11 Freq: Status: Active Protocol: Document 03/12/19 14:30 HH (Rec: 03/12/19 15:34 HH [id number]) Physical Therapy Assessment Goals Three Jail Goal (LTG) Goal met: 03/12 Pt is cautious with navigation and stair climbing with occasional compensatory L head turn for safety. Pt denies he has any falls. Two Brand Inspector Goal (LTG) 03/12 pt is able shadia walking for >2 miles One Brand Inspector Goal (LTG) 12 goal met NICE reaches 56/56 today. Progress Towards Goals Progress Towards Goals Goals Met Assessment Summary Assessment Pt presents to clinic for reassessment before he moves back to [place]. Pt has reached his baseline for gross and fine motor control and overall balance (NICE 56/56); MMT 5/5 grossly. However, there's residual but improved L visual field deficit who was able to identify PT's number of fingers 75% of the time. Pt no longer need skilled physical therapy at this point and recommended him to acquire gym membership for mobility and strength maintainence. Physical Therapy Plan Frequency and Duration Duration of Treatment 1 day Plan of Care Start Date 03/12/19 Plan of Care End Date 03/12/19 Discharge Physical Therapy Discharge Reasons Goals Met
--- NOTE | 2019-03-12 15:37 | PT.OPPOC ---
Current Diagnoses Cerebral infarction, unspecified (03/12/19) Visit Care Team Role Provider Type Karen Alexandra Primary Care Provider Non-Staff Specialty: Family Practice Address: [address], [address] Email: Isa Arango Attending Provider Non-Staff Specialty: Physical Medicine and Rehab Address: [address] [place] [address], [place], [address] Email: Plan Of Care PT-OP-T Assessment and Plan Start: 12/26/18 17:11 Freq: Status: Active Protocol: Document 03/12/19 14:30 HH (Rec: 03/12/19 15:34 [id number]) Physical Therapy Assessment Goals Three Mcfp Goal (LTG) Goal met: 03/12 Pt is cautious with navigation and stair climbing with occasional compensatory L head turn for safety. Pt denies he has any falls. Two Automotive Metalsmith Goal (LTG) 03/12 pt is able shadia walking for >2 miles One Mcfp Goal (LTG) 03/12 goal met NICE reaches 56/56 today. Progress Towards Goals Progress Towards Goals Goals Met Assessment Summary Assessment Pt presents to clinic for reassessment before he moves back to [place]. Pt has reached his baseline for gross and fine motor control and overall balance (NICE 56/56); MMT 5/5 grossly. However, there's residual but improved L visual field deficit who was able to identify PT's number of fingers 75% of the time. Pt no longer need skilled physical therapy at this point and recommended him to acquire gym membership for mobility and strength maintainence. Physical Therapy Plan Frequency and Duration Duration of Treatment 1 day Plan of Care Start Date 03/12/19 Plan of Care End Date 03/12/19 Discharge Physical Therapy Discharge Reasons Goals Met Plan of Care Dates Plan of Care Start Date 03/12/19 Plan of Care End Date 03/12/19
--- NOTE | 2019-03-12 17:02 | PT.OPDS ---
Current Diagnoses Cerebral infarction, unspecified (03/12/19) Visit Care Team Role Provider Type Karen Alexandra Primary Care Provider Non-Staff Specialty: Family Practice Address: [address] [place] [address], [id number] Email: Isa Arango Attending Provider Non-Staff Specialty: Physical Medicine and Rehab Address: [address] [place] [address], [place], [address] Email: Visit Number Visit Number 5 Discharge Summary PT-OP-B Current Condition Start: 12/25/18 09:04 Freq: Status: Active Protocol: Document 12/25/18 11:15 AM[facility] (Rec: 12/26/18 14:24 AM[facility] [id number]) Current Condition History of Current Condition Onset Date 12/08/18 History of Current Condition 63 year old male s/p right occipital stroke on 12/08/18(CTA head and neck showed L veretebral aretry segmental occlusion and 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 His greatest complaint at this time is left sided visual field cut and left sided scanning. The patients was present for his evaluation and she notes Alvin is significantly fatigued during the day. The drive from [place] to [place] was a lot of sensory overload for him and he had a very severe headache when they arrived in [place]. He is still getting headaches with too much stimulation. The headaches are behind his left eye. He also notes that he will become dizzy and lean to the left into a wall for support. He was sent to PT for gait and balance training especially with navigation in more complex environments as he is limited with his visual impairments. He is also seeing speech and OT. Other past medical history includes HTN, seizure, splenic lesions of unknown etiology, Bradycardia Treatment Goals Patient/Caregiver Goals Alvin's goals include improved vision out of the left eye, improved energy, decreased fatigue and dizzyness, decreased c/o headaches Prior Functional Status Baseline Function- ADL's Independent Baseline Function- Mobility Independent PT-OP-C Subjective Start: 12/25/18 09:04 Freq: Status: Active Protocol: Document 03/12/19 14:30 HH (Rec: 03/12/19 15:34 HH [id number]) OP-PT Subjective Patient Comments Patient Comments I dont have any complaints at this point except im strill very cautious walking around and climbing stairs due to my visual deficits. Im moving back to [place] next week so im here to make sure everything is okay. Patient Reported Progress Improving PT-OP-D Balance Start: 12/26/18 13:56 Freq: Status: Active Protocol: Document 03/12/19 14:30 HH (Rec: 03/12/19 15:34 [id number]) Balance Tests Collazo Balance Test Collazo Balance Test Score 56 Collazo Impairment Rating 0% Impaired (Score 56) PT-OP-G Mobility & Gait Start: 12/25/18 09:04 Freq: Status: Active Protocol: Document 12/25/18 13:00 AMH (Rec: 12/26/18 17:10 [facility] [email or web address]) OP Mobility Evaluation Bed Mobility Rolling WNL Supine to and from Sit WNL IND Functional Movements Squats able to perform a squat and lunge but does lose balance a little on the lunge OP Gait Assessment Comments Gait Comments with head turns during Gait Alvin did find himself veering off to the left. He has difficulty scanning objects on his left while walking PT-OP-H Neuro Start: 12/25/18 09:04 Freq: Status: Active Protocol: Document 03/12/19 14:30 HH (Rec: 03/12/19 15:34 [id number]) Sensation Evaluation Gross Sensation Gross Sensation WNL Deep Tendon Reflex & Clonus Assessment Deep Tendon Reflex Bilateral Achilles Deep Tendon Reflex 2+ Normal Bilateral Patellar Deep Tendon Reflex 2+ Normal Bilateral Brachioradialis Deep Tendon Reflex 2+ Normal Bilateral Tricep Deep Tendon Reflex 2+ Normal Bilateral Bicep Deep Tendon Reflex 2+ Normal Ankle Clonus Bilateral Clonus Assessment Absent PT-OP-M Strength Start: 12/26/18 13:56 Freq: Status: Active Protocol: Document 12/25/18 13:00 AMH (Rec: 12/26/18 17:10 [facility] [email or web address]) Cervical Spine Strength Cervical Spine Manual Muscle Testing Reason Not Measured WFL Elbow/Forearm Strength Elbow and Forearm Manual Muscle Testing Right Flexion (C6) 5 Normal Extension (C7) 5 Normal Pronation 5 Normal Supination 5 Normal Left Flexion (C6) 5 Normal Extension (C7) 5 Normal Pronation 5 Normal Supination 5 Normal Hip Strength Hip Manual Muscle Testing Right Flexion (L2) 4 Good Extension (S1) 4 Good Abduction 4 Good Left Flexion (L2) 4 Good Extension (S1) 4 Good Abduction 4 Good Adduction 5 Normal External Rotation 5 Normal Internal Rotation 5 Normal Knee Strength Knee Manual Muscle Testing Right Flexion (S2) 5 Normal Extension (L3) 5 Normal Left Flexion (S2) 4+ Good+ Extension (L3) 4+ Good+ PT-OP-T Assessment and Plan Start: 12/26/18 17:11 Freq: Status: Active Protocol: Document 03/12/19 14:30 HH (Rec: 03/12/19 15:34 [id number]) Physical Therapy Assessment Goals Three Arch Cushion Press Operator Goal (LTG) Goal met: 03/12 Pt is cautious with navigation and stair climbing with occasional compensatory L head turn for safety. Pt denies he has any falls. Two Care Home Goal (LTG) 03/12 pt is able shadia walking for >2 miles One Arch Cushion Press Operator Goal (LTG) 03/12 goal met COLLAZO reaches 56/56 today. Progress Towards Goals Progress Towards Goals Goals Met Assessment Summary Assessment Pt presents to clinic for reassessment before he moves back to [place]. Pt has reached his baseline for gross and fine motor control and overall balance (COLLAZO 56/56); MMT 5/5 grossly. However, there's residual but improved L visual field deficit who was able to identify PT's number of fingers 75% of the time. Pt no longer need skilled physical therapy at this point and recommended him to acquire gym membership for mobility and strength maintainence. Physical Therapy Plan Frequency and Duration Duration of Treatment 1 day Plan of Care Start Date 03/12/19 Plan of Care End Date 03/12/19 Discharge Physical Therapy Discharge Reasons Goals Met
== END 2019-03-12 16:00 ==
LOC: PHYS 14:30
PROVIDERS: PCP Acupuncturist; Visit Provider Physical Medicine & Rehabilitation
DX: I63.9 Cerebral infarction, unspecified (principal)
CPT/HCPCS: 97110; 97112; 97162; 97164; 97535

== ENCOUNTER 2019-03-13 13:30 | Outpatient (RCR) | payer OTHER, SELFPAY ==
--- NOTE | 2018-12-24 13:56 | ST.OPIE ---
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 Isa Arango Reason for Referral CVA Evaluation Assessment Type Cognitive Linguistic Past Medical History Patient History This 63-yr-old male s/p right occipital CVA and right vertebral artery occlusion s/p tPA, occurring 12/08/18. Per medical records: Head CTA showed right P2-P3 thrombus, and CTA neck showed right vertebral artery thought to be the source of embolic infarct . Post tPA, he did have a seizure requiring intubation ( 12/08-12/09). tPA was stopped to r /o hemorrhage; head CT showed no hemorrhage but it is unclear if tPA was resumed. Ongoing deficits per medical records include left hemianopsia, mild left side weakness and cognitive deficits. The pt received Speech Therapy at , targeting attention, memory, visual attention, progblem solving, and reading skills. Today the pt reported hypersensitivity to visual and auditory stimuli as well as temperature. He also complained of significant ongoing fatigue. The pt is a resident of [place] ; however, he and his were in [place] for a wedding at the time of the CVA . Their [place] home is undergoing renovation. Their daughter lives in [place], and they are staying with her for an undetermined time. The pt will be receiving PT/OT/ST services at this clinic. Hearing Hearing Level Hearing Aids Auditory History The pt did not have his hearing aids with him today. Vision Vision Status Impaired Comments The pt was not wearing his prescription glasses during evaluation. 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 Subjective Subjective The pt arrived on time with his , Gloria, who was present throughout the evaluation. Both the pt and his provided case history supplemental to medical records. The pt reported not sleeping well last night and feeling very fatigued today. He intermittently used reading glasses provided by the Clinician during today's testing and complained frequently of eye fatigue. - Informal Assessment Receptive Language Normal Yes Expressive Language Normal Yes: Mildly slow at times Articulation Normal Yes Assessment Findings Pt attempted to read [place] at size 22-point font while wearing reading glasses (not prescription). Able to read 2/4 words. Little to no benefit from visual isolation of words/letters. Pt correctly identified 1 of 3 letters in word sunlight. Recommendations Assessment of reading ability and comprehension when pt wearing prescription glasses. Formal Assessment Standardized Test Cognitive Linguistic Quick Test (CLQT) Administration Initiated,Incomplete Results Symbol Cancellation: 0 Clock Drawin/13 Story Retellin/10 Symbol Trails: 06/10 - Cognition Cognitive Assessment Cognitive Assessment The pt exhibited significant visuospatial impairment in today's testing, including left side visual neglect, incorrect perception of symbols and sizes and location on page. He demonstrated intermittent recognition of errors without effort to correct. He was unable to read words >4 letters presented at size 22-pt font. Absence of prescription glasses is likely to have impacted the pt's ability. Non-prescription reading glasses were of little to no benefit, as was isolation of words/letters in reading task. Executive functions necessary for clock drawing were WNL; further assessment to be completed. Auditory comprehension and recall were WFL. The pt participated appropriately in conversation with occasionally slowed responses, which may be secondary to fatigue. He did require frequent breaks, during which he tended to keep his eyes closed even when continuing to participate in conversation, in order to manage sensitivity to light. Cognitive linguistic assessment to be completed at next session, as well as further evaluation of expressive and receptive language skills, particularly reading and writing. The pt was provided with scanning and maze activities with instructions/demonstration of colored left side margin to increase attention to left side of page and colored paper to track lines. Pt/spouse verbalized understanding. - Memory - Treatment Goals Short Term Goals 1. The pt will participate in further assessment of cognitive linguistic, expressive and receptive language skills to guide POC. Additional goals to be established upon completion of assessment. 2. Using visual aids as needed, the pt will perform scanning tasks with 80% accuracy to improve reading skills. Intermediate Goals 1. The pt will exhibit cognitive linguistic and reading/writing skills necessary to return to work. Total Time Full Evaluation Time 95
--- NOTE | 2019-01-02 14:02 | ST.OPTN ---
Addendum entered and electronically signed by Neli Cao 01/02/19 14:04: Treatment date incorrectly documented. Actual treatment date was 12/31/18. Original Note: Visit Care Team Role Provider Type Karen Alexandra Primary Care Provider Non-Staff Address: [address] [place] [address], [id number] Other Providers Address: Phone: Fax: Other Providers Address: Phone: Fax: Isa Arango Attending Provider Non-Staff Address: [address] [place] [address], [phone] PASSENGER SERVICE SUPERVISOR Treatment Note PASSENGER SERVICE SUPERVISOR Treatment Note Start: 12/24/18 11:52 Freq: Status: Active Protocol: Document 01/02/19 13:36 PHILIP (Rec: 01/02/19 13:41 PHILIP [email or web address]) Speech Pathology Treatment Note Session Time Visit Start Time 15:30 Visit Stop Time 16:30 Total Visit Minutes 60 Visit Information Visit Number 04/12 Plan of Care Dates 12/24/18 - 03/25/19 Insurance Information A[employer] Setting Treatment Setting Outpatient Care Visit Type Note Type Treatment Note Next Note Type Next Note Type Treatment Note General Information General Information This 63-yr-old male s/p right occipital CVA and right vertebral artery occlusion s/p tPA, occurring 12/08/18. Per medical records: Head CTA showed right P2-P3 thrombus, and CTA neck showed right vertebral artery thought to be the source of embolic infarct . Post tPA, he did have a seizure requiring intubation ( 12/08-12/09). tPA was stopped to r /o hemorrhage; head CT showed no hemorrhage but it is unclear if tPA was resumed. Ongoing deficits per medical records include left hemianopsia, mild left side weakness and cognitive deficits. The pt received Speech Therapy at , targeting attention, memory, visual attention, progblem solving, and reading skills. Today the pt reported hypersensitivity to visual and auditory stimuli as well as temperature. He also complained of significant ongoing fatigue. The pt is a resident of [place] ; however, he and his were in [place] for a wedding at the time of the CVA . Their [place] home is undergoing renovation. Their daughter lives in [place], and they are staying with her for an undetermined time. The pt will be receiving PT/OT/ST services at this clinic. Subjective Others Present Family Observations/Patient Presentation The pt arrived on time accompanied by his , who was present at start and end of session only. She expressed concern of the pt perhaps having color blindness as a result of stroke and asked if that could be evaluated during the session. PASSENGER SERVICE SUPERVISOR informed that was outside of ST scope, although an informal screen could be conducted. Pt/spouse requested this. The pt was wearing his prescription glasses today, and also appeared to be significantly less fatigued and in better spirits than at last session. Chief Complaint(s) Cognitive Additional Areas of Concern Vision Rehab Expectation/Goals: Patient Goals Improve cognitive skills to return to work and PLOF. Parent/Caretake Knowledge/Awareness of Excellent PASSENGER SERVICE SUPERVISOR Role in Treatment Patient/Caregiver Compliance with Home Excellent Exercise Program Objective Short Term Goals 1. The pt will participate in further assessment of cognitive linguistic, expressive and receptive language skills to guide POC. Additional goals to be established upon completion of assessment. GOAL MET 2. Using visual aids as needed , the pt will perform scanning tasks with 80% accuracy to improve reading skills. Custodial Goals 1. The pt will exhibit cognitive linguistic and reading/writing skills necessary to return to work. Treatment Activities Completed administration of CLQT+ assessment with the following severity ratings: Composit Severity Rating: Mild Traditional Administration Subtests: Attention: Moderate Memory: WNL Executive Functions: Moderate Language: WNL Visuospatial Skills: Severe Clock Drawing: WNL Aphasia Administration Subtests: Non-Linguistic Cognition: Sever Linguistic/Aphasia: Mild Clock Drawing: WNL Re-administered Symbol Cancellation and Symbol Trails sub-tests with pt wearing prescription glasses. In 60 seconds and with verbal prompts to use all allotted seconds, the pt scored 100% on Symbol Cancellation. He initially ignored left side of page and missed many target symbols; however, when prompted to use all of the allotted time, he did find the remaining symbols independently. Likewise, the pt ignored left side of page in Symbol Trails task when within close visual contact with paper. Upon sitting back and looking at page from further distance, he discovered the missing symbols. Given a different colored pen, the pt had the opportunity to correct his errors; however, the presence of previously made lines interfered with his visual perception and he was unable to complete the task. Informal screening of color recognition was administered using 9 images from an online colorblind test. The pt acheived 89% accuracy with extensive processing time, significant visual strain resulting in fatigue. Referral to Opthamology is recommended . Assessment Patient Response to Treatment Good Rehab Potential Good Impairments Identified Attention,Cognitive-Linguistic Skills,Memory - Short Term, Memory - Working,Problem Solving,Written Expression Assessment of Improvement The pt presents with moderate impairments in areas of attention and executive functions, and severe visuospatial skills, consistent with right side occipital lobe infarct. He continues with left-side neglect but does exhibit increased awareness of this deficit. He also verbalized good cognitive planning but exhibited moderate difficulty in executing his plan with maze and design generation tasks. Given images of colored numbers embedding in differently colored backgrounds, the pt strained significantly to distinguish the numbers. He did acheive 89 % accuracy (8/9 opportunities) with extended processing time and strain which resulted in visual and cognitive fatigue. Visual assessment, including colorblindeness, and visual therapy if warranted is recommended to be done by an Opthamologist. Pt/spouse were in agreement. Reviewed with Patient Goals,Progress Being Made,Home Exercise Program Patient/Caregiver Understanding Excellent Plan Length of Session 45 Minutes Therapeutic Contents Client Education,Cognitive- Linguistic Training,Home Exercise Program,Information Processing,Written Expression Provided Patient/Caregiver Instruction Home Exercise Program,Plan of Care,Questions/Concerns Therapy Recommendations Continue with Current Program Suggested Referral Other Other Referrals Opthamology
--- NOTE | 2019-01-07 16:37 | ST.OPTN ---
Visit Care Team Role Provider Type Karen trish Primary Care Provider Non-Staff Address: [address] [place] [address], [phone] Other Providers Address: Phone: Fax: Other Providers Address: Phone: Fax: Isa Arango Attending Provider Non-Staff Address: [address] [place] [address], [phone] HOGSHEAD OPENER Treatment Note HOGSHEAD OPENER Treatment Note Start: 12/24/18 11:52 Freq: Status: Active Protocol: Document 01/07/19 15:11 PHILIP (Rec: 01/07/19 15:27 PHILIP [email or web address]) Speech Pathology Treatment Note Session Time Visit Start Time 12:35 Visit Stop Time 13:30 Total Visit Minutes 55 Visit Information Visit Number 05/13 Plan of Care Dates 12/24/18 - 03/25/19 Insurance Information A[employer] Setting Treatment Setting Outpatient Care Visit Type Note Type Treatment Note Next Note Type Next Note Type Treatment Note General Information General Information Patient is a 63 year-old right hand dominant male 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 Head CTA showed right P2-P3 thrombus and CTA neck showed right vertebral artery thought to the source of embolic infarct. Post tPA patient had seizure requiring intubation (12/08-12/09) . He was discharged from [facility] . Ongoing deficits identified in available medical documentation include left hemianopsia, mild left facial droop, mild discoordination, left sided weakness and cognitive deficits. PMH also significant for blood clots, blood pressure concerns, dizziness, headaches, hearing problems. Subjective Identification Type Name Identification Reconciled With Medical Record Observations/Patient Presentation The pt arrived on time accompanied by his , who was present at start and end of session only. She showed HOGSHEAD OPENER tasks given to the pt by OT, including various sorting activities. The pt and his reported being told during the pt's hospital stay that he was restricted from traveling by car or plane. They are eager to return to [place] and asked what conditions need to be met to lift the travel requirements. They were referred to MD to address this question. They also reported the pt is having hallucinations, which the pt described as floaters in his visual field that often take form of objects which he thinks are real, such as an overhead light that he attempted to reach up to run off and a dog that he attempted to bend over to pet. He was referred to Opthamology and MD to address these concerns. Chief Complaint(s) Cognitive Additional Areas of Concern Vision Rehab Expectation/Goals: Patient Goals Improve cognitive communication skills to return to home and work. Patient/Caregiver Compliance with Home Good Exercise Program Objective Short Term Goals 1. Using visual aids as needed , the pt will perform scanning tasks with 80% accuracy to improve reading skills. 2. The pt will perform sustained and selective attention tasks of moderate complexity with 80% accuracy to reduce overstimulation to auditory and visual stimuli and to return to work. 3. The pt will complete maze of moderate difficulty to improve executive function and visuospatial skills necessary to return to work. Historiographer Goals 1. The pt will exhibit cognitive linguistic and reading/writing skills necessary to return to work. Treatment Activities Sustained/Selective Attn: The pt completed color tile sorting task in a quiet environment with 100% accuracy , decreasing to 90% accuracy with introduction of minimal auditory distractors ( conversations in background). He completed visual scanning tasks (1 letter) initially with 69% accuracy with auditory distractor (music) playing. A visual guide (green line) was at left margin to reduce left side neglect. The pt did not neglect left but did neglect the first 2 rows, starting at the 3rd, as well as the 4th row. After that, he scanned each row in its entirety. The pt also talked throughout completion of the task, which may have contributed to his low score. Skilled feedback was provided and the task was repeated with instructions to begin at left side of top line, which was marked in green. The pt refrained from talking and acheived 89% accuracy in presence of music playing in background. Pt was instructed to incorporate visual and auditory distractors to tasks being completed for HEP and to note their impact on performance and concentration. Assessment Patient Response to Treatment Good Rehab Potential Good Impairments Identified Attention,Cognitive-Linguistic Skills,Problem Solving Additional Impairments Identified Visuospatial Progress Towards Goals Good Progress Assessment of Overall Progress Improving Assessment of Improvement Improving attention to left side. Some inattention noted to tops of written tasks and decreased accuracy when pt conversed while completing tasks (divided attention). Mild impact of auditory distractors. Reviewed with Patient Goals,Progress Being Made,Home Exercise Program Patient/Caregiver Understanding Good Plan Length of Session 45 Minutes Therapeutic Contents Client Education,Cognitive- Linguistic Training,Home Exercise Program,Information Processing,Written Expression Provided Patient/Caregiver Instruction Home Exercise Program,Plan of Care,Questions/Concerns Therapy Recommendations Continue with Current Program Suggested Referral Other Other Referrals Opthamology; to discuss travel restrictions
--- NOTE | 2019-01-09 14:48 | ST.OPTN ---
Visit Care Team Role Provider Type Karen Alexandra Primary Care Provider Non-Staff Address: [address] [place] [address], [id number] Other Providers Address: Phone: Fax: Other Providers Address: Phone: Fax: Isa Arango Attending Provider Non-Staff Address: [address] [place] [address], [id number] WOOD LATHER Treatment Note WOOD LATHER Treatment Note Start: 12/24/18 11:52 Freq: Status: Active Protocol: Document 01/09/19 14:26 PHILIP (Rec: 01/09/19 14:48 PHILIP [email or web address]) Speech Pathology Treatment Note Session Time Visit Start Time 13:30 Visit Stop Time 12:22 Total Visit Minutes 52 Visit Information Visit Number 06/[id number] Plan of Care Dates 12/24/18 - 03/25/19 Insurance Information [employer] Setting Treatment Setting Outpatient Care Visit Type Note Type Treatment Note Next Note Type Next Note Type Treatment Note General Information General Information Patient is a 63 year-old right hand dominant male 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 Head CTA showed right P2-P3 thrombus and CTA neck showed right vertebral artery thought to the source of embolic infarct. Post tPA patient had seizure requiring intubation (12/08-12/09) . He was discharged from [facility] . Ongoing deficits identified in available medical documentation include left hemianopsia, mild left facial droop, mild discoordination, left sided weakness and cognitive deficits. PMH also significant for blood clots, blood pressure concerns, dizziness, headaches, hearing problems. Subjective Identification Type Name Identification Reconciled With Medical Record Observations/Patient Presentation The pt arrived on time accompanied by his , who was present at start and end of session only. The pt had questions related to tx goals that will help him return to work. He identified being interrupted and able to resume work as one of his concerns. Chief Complaint(s) Cognitive Additional Areas of Concern Vision Rehab Expectation/Goals: Patient Goals Improve cognitive communication skills to return to home and work. Patient/Caregiver Compliance with Home Good Exercise Program Objective Short Term Goals 1. Using visual aids as needed , the pt will perform scanning tasks with 80% accuracy to improve reading skills. 2. The pt will perform attention tasks of moderate complexity with 80% accuracy to reduce overstimulation to auditory and visual stimuli and to return to work. 3. The pt will complete maze of moderate difficulty to improve executive function and visuospatial skills necessary to return to work. Prison Goals 1. The pt will exhibit cognitive linguistic and reading/writing skills necessary to return to work. Treatment Activities Reading: Given a short newspaper article organized in 2 short columns in ~12-pt font, the pt read article aloud with 97% accuracy of words, though rate was very slow and the pt labored over ~ 25% of the words, occasionally appearing to assume rather than read words. Min-mod prompts were required for accuracy. Reading Comprehension/Recall: 100% accuracy with little need to refer to article for answers. Scanning: The pt exhibit difficulty transitioning from line to line, skipping the first lines of each column and 2 other lines throughout the article. Skilled feedback and training to use finger/pen as visual guide was provided. Accuracy of transitions improved with this strategy use. In a separate task, the pt also scanned cards to find matching images. He independently developed and used strategy of using his finger to isolate images and search for their matches one by one. This was effective in all but 1 trial. Alternating Attn: During completion of reading task, the pt was interrupted 3 times with a scanning activity. Each time, he returned to his reading task independently. Assessment Patient Response to Treatment Good Rehab Potential Good Impairments Identified Attention,Cognitive-Linguistic Skills,Problem Solving Additional Impairments Identified Visuospatial Progress Towards Goals Good Progress Assessment of Overall Progress Improving Assessment of Improvement The pt again exhibited improved attention to left side of page but neglect of top of page, as well as transitions from line to line in reading task. He benefited from use of visual guide. He also exhibited difficulty visually descriminating letters which impacted his speed and accuracy of reading. Occasionally he appeared to assume rather than read words, which further decreased his overall reading speed. Reading recall and comprehension were WNL. The pt demonstrated improving insight into deficits by verbally identifying and acknowledging challenges. He commented that therapeutic tasks feel childish but acknowledged understanding of the need to establish strong foundations of skills prior to attempting more challenging tasks. Reviewed with Patient Goals,Progress Being Made,Home Exercise Program Patient/Caregiver Understanding Good Plan Length of Session 45 Minutes Therapeutic Contents Client Education,Cognitive- Linguistic Training,Home Exercise Program,Information Processing,Written Expression Provided Patient/Caregiver Instruction Home Exercise Program,Plan of Care,Questions/Concerns Therapy Recommendations Continue with Current Program Suggested Referral Other Other Referrals Opthamology; to discuss travel restrictions [id number]
--- NOTE | 2019-01-15 16:03 | ST.OPTN ---
Visit Care Team Role Provider Type Karen Alexandra Primary Care Provider Non-Staff Address: [address] [place] [address], [phone] Other Providers Address: Phone: Fax: Other Providers Address: Phone: Fax: Isa Arango Attending Provider Non-Staff Address: [address] [place] [address], [id number] PRECISE WINDER Treatment Note PRECISE WINDER Treatment Note Start: 12/24/18 11:52 Freq: Status: Active Protocol: Document 01/15/19 15:31 PHILIP (Rec: 01/15/19 16:03 PHILIP [email or web address]) Speech Pathology Treatment Note Session Time Visit Start Time 14:32 Visit Stop Time 15:18 Total Visit Minutes 50 Visit Information Visit Number 07/11 Plan of Care Dates 12/24/18 - 03/25/19 Insurance Information [employer] Setting Treatment Setting Outpatient Care Visit Type Note Type Treatment Note Next Note Type Next Note Type Treatment Note General Information General Information Patient is a 63 year-old right hand dominant male 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 Head CTA showed right P2-P3 thrombus and CTA neck showed right vertebral artery thought to the source of embolic infarct. Post tPA patient had seizure requiring intubation (12/08-12/09) . He was discharged from [facility] . Ongoing deficits identified in available medical documentation include left hemianopsia, mild left facial droop, mild discoordination, left sided weakness and cognitive deficits. PMH also significant for blood clots, blood pressure concerns, dizziness, headaches, hearing problems. Subjective Identification Type Name Identification Reconciled With Medical Record Observations/Patient Presentation The pt arrived on time accompanied by his , who was present at start and end of session only. Pt/ reported pt's good endurance and participation at large family gathering, followed by heavy fatigue after and difficulty completing complicated phone call in the presence of auditory stimuli the following day. Chief Complaint(s) Cognitive Patient/Caregiver Compliance with Home Good Exercise Program Objective Short Term Goals 1. Using visual aids as needed , the pt will perform scanning tasks with 80% accuracy to improve reading skills. 2. The pt will perform attention tasks of moderate complexity with 80% accuracy to reduce overstimulation to auditory and visual stimuli and to return to work. 3. The pt will complete maze of moderate difficulty to improve executive function and visuospatial skills necessary to return to work. Ui Architect Goals 1. Timmy will be modified independent with execution of home exercise program utilizing provided written and visual instructions from therapist. 2. Timmy will be able to execute keyboarding/typing tasks on computer with modified independence. 3. Timmy will be able to execute visual motor tasks without visual spatial errors which will support success with execution of pencil/paper tasks. Treatment Activities Skilled feedback and education provided RE identifying challenges, learning from them and developing compensatory strategies. Pt identified challenges from auditory stimuli and fatigue and was responsive to recommended strategies (mitigate or remove stimuli). Alternating Attn: Given 2 graphs (one bar, one pie) and 5 questions each in a quiet environment, the pt alternated answering questions about each graph. He tracked alternating task with 100% accuracy, answered questions with 80% accuracy. Errors appeared to be related to reduced attention and/or visual scanning skills. Once identified by Clinician, the pt easily corrected questions. Visual Skills/Neglect: 2 episodes of left side neglect, corrected with verbal prompt. He tracked questions/rows with 80% accuracy, skipping question #2 on each page, which he self-corrected. The pt misread 2 numbers (1,000, 000 and 3,000,000), twice reading a zero as a 5 or 6. He benefited from visual aid to isolate each number from left to right. Skilled feedback provided RE using strategy when working with numbers such as budget items or reading bills. Pt responded, I'm not ready to go back to work yet. Assessment Patient Response to Treatment Good Rehab Potential Good Impairments Identified Attention,Cognitive-Linguistic Skills,Other Additional Impairments Identified Visuospatial Progress Towards Goals Slow Progress Assessment of Overall Progress Improving Assessment of Improvement The pt navigated transitions between two tasks well. Visual and attention impairments resulted in 2 incorrect answers and occasional errors in reading, including reading numbers. This may impact his ability to perform ADLs such as financial responsibilities. He benefited from use of visual aid to isolate numbers, and this is recommended, as well as having his understanding and work verified by his , whenever working with important information such as budget tasks. Based on descriptions of pt's response of fatigue and increased impact of auditory stimuli following very active days, it is recommended the pt not schedule critical tasks following fatiguing activities and or in the presence of auditory distractions at this time. The pt and his should continue to play games such as Dominoes to target cognitive-linguistic skills including attention, problem solving, and visuospatial skills. Reviewed with Patient Goals,Progress Being Made,Home Exercise Program Patient/Caregiver Understanding Good Plan Length of Session 45 Minutes Therapeutic Contents Client Education,Cognitive- Linguistic Training,Home Exercise Program,Information Processing,Written Expression Provided Patient/Caregiver Instruction Home Exercise Program,Plan of Care,Questions/Concerns Therapy Recommendations Continue with Current Program Suggested Referral Other Other Referrals Opthamology; to discuss travel restrictions
--- NOTE | 2019-01-16 16:03 | ST.OPTN ---
Visit Care Team Role Provider Type Karen trish Primary Care Provider Non-Staff Address: [address] [place] [address], [phone] Other Providers Address: Phone: Fax: Other Providers Address: Phone: Fax: Isa Arango Attending Provider Non-Staff Address: [address] [place] [address], [phone] HEALTH TEACHER Treatment Note HEALTH TEACHER Treatment Note Start: 12/24/18 11:52 Freq: Status: Active Protocol: Document 01/16/19 13:58 PHILIP (Rec: 01/16/19 14:00 PHILIP [email or web address]) Speech Pathology Treatment Note Session Time Visit Start Time 13:35 Visit Stop Time 14:23 Total Visit Minutes 48 Visit Information Visit Number 08/10 Plan of Care Dates 12/24/18 - 03/25/19 Insurance Information [employer] Setting Treatment Setting Outpatient Care Visit Type Note Type Treatment Note Next Note Type Next Note Type Treatment Note General Information General Information Patient is a 63 year-old right hand dominant male 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 Head CTA showed right P2-P3 thrombus and CTA neck showed right vertebral artery thought to the source of embolic infarct. Post tPA patient had seizure requiring intubation (12/08-12/09) . He was discharged from [facility] . Ongoing deficits identified in available medical documentation include left hemianopsia, mild left facial droop, mild discoordination, left sided weakness and cognitive deficits. PMH also significant for blood clots, blood pressure concerns, dizziness, headaches, hearing problems. Subjective Identification Type Name Identification Reconciled With Medical Record Observations/Patient Presentation The pt arrived 5 min late as he was not feeling well today. He was accompanied by his , who did not attend session but reported to HEALTH TEACHER ( without pt present) after the session that the pt is doing very little practice at home with all of his therapies and prefers to remain in bed most of the day. She did become tearful. HEALTH TEACHER agreed to talk with PT/OT to reinforce to the pt the importance of home practice. The pt's has little outside support as this is not the couple's home. The pt also reported frequently seeing floaters and phantom objects that interfere with tasks. He gave the example of seeing phantom tiles while playing Dominoes with his . Chief Complaint(s) Cognitive Patient/Caregiver Compliance with Home Good Exercise Program Objective Short Term Goals 1. Using visual aids as needed , the pt will perform scanning tasks with 80% accuracy to improve reading skills. 2. The pt will perform attention tasks of moderate complexity with 80% accuracy to reduce overstimulation to auditory and visual stimuli and to return to work. 3. The pt will complete maze of moderate difficulty to improve executive function and visuospatial skills necessary to return to work. Residential Goals 1. Timmy will be modified independent with execution of home exercise program utilizing provided written and visual instructions from therapist. 2. Timmy will be able to execute keyboarding/typing tasks on computer with modified independence. 3. Timmy will be able to execute visual motor tasks without visual spatial errors which will support success with execution of pencil/paper tasks. Treatment Activities Alternating Attn: Given 2 different types of reading tasks (schedule and graph) and 5 questions each in presence of mild environmental noise, the pt alternated answering questions on each page. He tracked alternating task with 100% accuracy, answered questions with 80% accuracy. Errors appeared to be related to reduced attention and/or visual scanning skills. Once identified by Clinician, the pt easily corrected questions. During Addison playing task, the pt required prompts x3 to draw a new tile at the end of his turn. After that, he recalled independently x3 (50% independence). Visual Skills/Neglect: No left side neglect present. During reading tasks, the pt skipped one question and misread 2 numbers when scanning for the number 5,000. He benefited from visual aid to isolate each number from left to right . During Dominoes task, the pt benefited from lining tiles on blue tape. He reported no episodes of visual deficits such as double vision or seeing phantom tiles. He also matched numbers and counted tiles correctly. Assessment Patient Response to Treatment Good Rehab Potential Good Impairments Identified Attention,Cognitive-Linguistic Skills,Other Additional Impairments Identified Visuospatial Progress Towards Goals Slow Progress Assessment of Overall Progress Improving Assessment of Improvement Pt performed alternating attn task similarly to yesterday with mild attention and visuospatial deficits present. He benefited from visual aids /boundaries in both tasks and was responsive to skilled feedback and recommendations. Reviewed with Patient Goals,Progress Being Made,Home Exercise Program Patient/Caregiver Understanding Good Plan Length of Session 45 Minutes Treatment Emphasis Next Session Educate on importance of HEP compliance Therapeutic Contents Client Education,Cognitive- Linguistic Training,Home Exercise Program,Information Processing,Written Expression Provided Patient/Caregiver Instruction Home Exercise Program,Plan of Care,Questions/Concerns Therapy Recommendations Continue with Current Program Comment Consult with PT/OT RE HEP Suggested Referral Other Other Referrals Opthamology; MD to discuss travel restrictions
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
--- NOTE | 2019-01-28 11:36 | ST.OPTN ---
Visit Care Team Role Provider Type Karen Alexandra Primary Care Provider Non-Staff Address: [address] [place] [address], [id number] Other Providers Address: Phone: Fax: Other Providers Address: Phone: Fax: Isa Arango Attending Provider Non-Staff Address: [address] [place] [address], [address] FITTER TACKER Treatment Note FITTER TACKER Treatment Note Start: 12/24/18 11:52 Freq: Status: Active Protocol: Document 01/28/19 10:30 PHILIP (Rec: 01/28/19 10:32 PHILIP [email or web address]) Speech Pathology Treatment Note Session Time Visit Start Time 10:32 Visit Stop Time 11:22 Total Visit Minutes 50 Visit Information Visit Number 10/10 Plan of Care Dates 12/24/18 - 03/25/19 Insurance Information [employer] Setting Treatment Setting Outpatient Care Visit Type Note Type Treatment Note Next Note Type Next Note Type Treatment Note General Information General Information Patient is a 63 year-old right hand dominant male 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 Head CTA showed right P2-P3 thrombus and CTA neck showed right vertebral artery thought to the source of embolic infarct. Post tPA patient had seizure requiring intubation (12/08-12/09) . He was discharged from [facility] . Ongoing deficits identified in available medical documentation include left hemianopsia, mild left facial droop, mild discoordination, left sided weakness and cognitive deficits. PMH also significant for blood clots, blood pressure concerns, dizziness, headaches, hearing problems. Subjective Identification Reconciled With Medical Record Observations/Patient Presentation Pt arrived on time. Reported having seen PCP, who recommended continuation of ST and OT services. Chief Complaint(s) Cognitive,Other Additional Areas of Concern Visuospatial Rehab Expectation/Goals: Patient Goals Improve cognitive communication skills to return to home and work. Patient/Caregiver Compliance with Home Good Exercise Program Objective Short Term Goals 1. Using visual aids as needed , the pt will perform scanning tasks with 80% accuracy to improve reading skills. 2. The pt will perform attention tasks of moderate complexity with 80% accuracy to reduce overstimulation to auditory and visual stimuli and to return to work. 3. The pt will complete maze of moderate difficulty to improve executive function and visuospatial skills necessary to return to work. Accounts Receivable Representative Goals 1. The pt will exhibit cognitive linguistic and reading/writing skills necessary to return to work. Treatment Activities Pt completed inferential reading and deductive reasoning tasks. Reading accuracy: 80%. Errors impacted by visual and attention deficits. Pt had difficulty discerning graphemes of words with double and similar looking letters ( e.g., possibility, announces) and occasionally assumed upcoming words vs reading them . He benefited from considering context in order to identify error and/or confirm reading accuracy. Scannin% with use of visual marker. Making inferences: 100% acc, min-mod assist Deductive reasoning with 7 components (4 persons, 3 details/person): Mod-max assist to complete puzzle in 20 minutes. Some assistance required to familiarize pt to this new task. Other prompts required for pt to see/attend to written information and his own notes accurately and to deduce information based on elimination. Organization: Pt initially exhibited good organizational skills in identifying and writing down components to be placed in chart, to insert obvious information first, to cross off information once used, and to make notes in chart related to given clues. With progression of task, the pt required prompts to continue these strategies, evidencing some decline in attention as the worksheet became more visually complex and as the pt was required to track increasing amounts of information. 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 The pt was assigned a new similar task to complete as HEP task and return at next session. Assessment Patient Response to Treatment Good Rehab Potential Good Impairments Identified ADLs,Attention,Cognitive- Linguistic Skills,Other Progress Towards Goals Slow Progress Assessment of Overall Progress Improving Assessment of Improvement The pt is making good progress in visual scanning tasks. Reading skills are improving but continue to be impacted occasionally by visual and attention deficits. The pt exhibits a strong base of deductive reasoning and is stimulable to improving these skills, which are necessary for him to return to work. Reviewed with Patient Goals,Progress Being Made,Home Exercise Program Patient/Caregiver Understanding Good Plan Therapeutic Contents Client Education,Cognitive- Linguistic Training,Home Exercise Program,Information Processing,Written Expression Additional Areas of Treatment Visuospatial skills Provided Patient/Caregiver Instruction Home Exercise Program,Plan of Care,Questions/Concerns Therapy Recommendations Continue with Current Program
--- NOTE | 2019-01-30 16:24 | ST.OPTN ---
Visit Care Team Role Provider Type Karen Alexandra Primary Care Provider Non-Staff Address: [address] [place] [address], [id number] Other Providers Address: Phone: Fax: Other Providers Address: Phone: Fax: Isa Arango Attending Provider Non-Staff Address: [address] [place] [address], [id number] BOX GLUER Treatment Note BOX GLUER Treatment Note Start: 12/24/18 11:52 Freq: Status: Active Protocol: Document 01/30/19 16:08 PHILIP (Rec: 01/30/19 16:24 PHILIP [email or web address]) Speech Pathology Treatment Note Session Time Visit Start Time 13:30 Visit Stop Time 14:20 Total Visit Minutes 50 Visit Information Visit Number 11/10 Plan of Care Dates 12/24/18 - 03/25/19 Insurance Information [employer] Setting Treatment Setting Outpatient Care Visit Type Note Type Treatment Note Next Note Type Next Note Type Treatment Note General Information General Information Patient is a 63 year-old right hand dominant male 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 Head CTA showed right P2-P3 thrombus and CTA neck showed right vertebral artery thought to the source of embolic infarct. Post tPA patient had seizure requiring intubation (12/08-12/09) . He was discharged from [facility] . Ongoing deficits identified in available medical documentation include left hemianopsia, mild left facial droop, mild discoordination, left sided weakness and cognitive deficits. PMH also significant for blood clots, blood pressure concerns, dizziness, headaches, hearing problems. Subjective Identification Reconciled With Medical Record Observations/Patient Presentation Pt arrived on time. No new complaints. Pt did not return with HEP work, stated that he had started but not finished it. Chief Complaint(s) Cognitive,Other Additional Areas of Concern Visuospatial Rehab Expectation/Goals: Patient Goals Improve cognitive communication skills to return to home and work. Patient/Caregiver Compliance with Home Good Exercise Program Objective Short Term Goals 1. Using visual aids as needed , the pt will perform scanning tasks with 80% accuracy to improve reading skills. 2. The pt will perform attention tasks of moderate complexity with 80% accuracy to reduce overstimulation to auditory and visual stimuli and to return to work. 3. The pt will complete maze of moderate difficulty to improve executive function and visuospatial skills necessary to return to work. Senior Living Goals 1. The pt will exhibit cognitive linguistic and reading/writing skills necessary to return to work. Treatment Activities Education and feedback provided RE HEP tasks and need for compliance and follow- through. The pt verbalized understanding and agreed to complete homework provided today and return it at next session. Pt completed moderately complex deductive reasoning task of 7 components in 17:07 (time) with mod cues related to organization of information and deductive reasoning. He also completed trail making task in which he connected pictures in alphabetical order of their names. Organization: In deductive reasoning task, the pt independently established a method of organizing and tracking information, including listing target items under their categories and crossing off information/clues once solved. However, he frequently re-read information that he had crossed off, which contributed significantly to the extended time required to complete the task and reduced efficiency of work. In trail making task, the pt lettered each picture before attempting to connect them in alphabetical order, which was effective although reduced efficiency. Reading: The pt made 3 errors in reading information, and 5 errors in reading (or not reading) his handwritten notes . His overlooking of information further extended the time required to complete the task. Scanning: In trail making task the pt scanned for objects with 78% accuracy, exhibiting left side neglect and requiring verbal cues. Assessment Patient Response to Treatment Good Rehab Potential Good Impairments Identified ADLs,Attention,Cognitive- Linguistic Skills,Other Progress Towards Goals Slow Progress Assessment of Overall Progress Improving Assessment of Improvement The pt is making progress but continues to require mod cues in deductive reasoning tasks, with organization, and visual scanning. Left side neglect is improving but still occasionally present. The pt exhibits good organizational plan at start of task but does not consistently follow through with that plan, resulting in reduced accuracy and efficiency of task completion. He was responsive to skilled feedback and in agreement with assessment of strengths and areas of ongoing challenge. The pt has not been very compliant with HEP work but verbalized understanding of its importance and an intention to improve. Reviewed with Patient Goals,Progress Being Made,Home Exercise Program Patient/Caregiver Understanding Good Plan Therapeutic Contents Client Education,Cognitive- Linguistic Training,Home Exercise Program,Information Processing,Written Expression Additional Areas of Treatment Visuospatial skills Provided Patient/Caregiver Instruction Home Exercise Program,Plan of Care,Questions/Concerns Therapy Recommendations Continue with Current Program
--- NOTE | 2019-02-04 16:51 | ST.OPTN ---
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 Treatment Note Start: 12/24/18 11:52 Freq: Status: Active Protocol: Document 02/04/19 16:34 PHILIP (Rec: 02/04/19 16:51 PHILIP [email or web address]) Speech Pathology Treatment Note Session Time Visit Start Time 13:30 Visit Stop Time 14:20 Total Visit Minutes 50 Visit Information Visit Number 12/11 Plan of Care Dates 12/24/18 - 03/25/19 Insurance Information [employer] Setting Treatment Setting Outpatient Care Visit Type Note Type Treatment Note Next Note Type Next Note Type Treatment Note General Information General Information Patient is a 63 year-old right hand dominant male 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 Head CTA showed right P2-P3 thrombus and CTA neck showed right vertebral artery thought to the source of embolic infarct. Post tPA patient had seizure requiring intubation (12/08-12/09) . He was discharged from [facility] . Ongoing deficits identified in available medical documentation include left hemianopsia, mild left facial droop, mild discoordination, left sided weakness and cognitive deficits. PMH also significant for blood clots, blood pressure concerns, dizziness, headaches, hearing problems. Subjective Identification Reconciled With Medical Record Observations/Patient Presentation Pt arrived on time. Reported having seen Real Estate Administrator Debi Dasilva and a Vocational Rehab therapist at last week, both of whom felt the pt was not yet ready to return to work. This report was confirmed via a phone conversation between this clinician and Ms. Dasilva prior to the session. The pt reported feeling discouraged by the assessment but also in agreement and expressed concern over having failed short-term memory tests. He requested incorporation of STM strategies into POC, to which this clinician agreed. The pt also returned completed deductive reasoning assignment, which was 100% accurate. Chief Complaint(s) Cognitive,Other Additional Areas of Concern Visuospatial Rehab Expectation/Goals: Patient Goals Improve cognitive communication skills to return to home and work. Patient/Caregiver Compliance with Home Good Exercise Program Objective Short Term Goals 1. Using visual aids as needed , the pt will perform scanning tasks with 80% accuracy to improve reading skills. 2. The pt will perform attention tasks of moderate complexity with 80% accuracy to reduce overstimulation to auditory and visual stimuli and to return to work. 3. The pt will complete maze of moderate difficulty to improve executive function and visuospatial skills necessary to return to work. NEW GOAL: Given lists of up to 7 unrelated words/pieces of information, the pt will verbalize and use trained memory strategies (e.g., taking notes, making assoications, visualizations) to recall items after a 10 or more minute delay with 90% accuracy. Intermediate Goals 1. The pt will exhibit cognitive linguistic and reading/writing skills necessary to return to work. Treatment Activities Consulted with pt RE results of recent appt at and POC. Skilled education and feedback regarding therapeutic tasks, HEP, and POC was provided, including targets for STM training. Initiated memory strategies training. Given 4 unassociated words and opportunity to write the words upon initial presentation, the pt identified a mnemonic strategy to recall words. The clinician provided examples of visualization and sentence- making strategies. Following a delay of 12 minutes during which the pt engaged in further conversation, he recalled the word list independently and accurately without hesitation. HEP tasks provided for practice in developing memory strategies. Pt verbalized understanding. Assessment Patient Response to Treatment Good Rehab Potential Good Impairments Identified ADLs,Attention,Cognitive- Linguistic Skills,Memory - Short Term,Memory - Working, Other Progress Towards Goals Slow Progress Assessment of Overall Progress Improving Assessment of Improvement The pt participated well in conversation related to areas of his perceived challenges and goals for therapy. He was responsive to initial training of memory strategies and able to use them effectively to recall a 4-word list. He benefited from having opportunity to write words upon first presentation, which reflects his normal process when receiving information at work. He demonstrated good insight into several deficits that prevent him from returning to work, including left-side neglect, fatigue, short-term/working memory, and information processing speeds . Plan to incorporate computer tasks, such as reading and writing notes related to therapeutic tasks in order to mimic work-related responsibilities. Reviewed with Patient Goals,Progress Being Made,Home Exercise Program Patient/Caregiver Understanding Good Plan Therapeutic Contents Client Education,Cognitive- Linguistic Training,Home Exercise Program,Information Processing,Written Expression Additional Areas of Treatment Visuospatial skills Provided Patient/Caregiver Instruction Home Exercise Program,Plan of Care,Questions/Concerns Therapy Recommendations Continue with Current Program
--- NOTE | 2019-02-06 17:11 | ST.OPTN ---
Visit Care Team Role Provider Type Karen Alexandra Primary Care Provider Non-Staff Address: [address] [place] [address], [id number] Other Providers Address: Phone: Fax: Other Providers Address: Phone: Fax: Isa Arango Attending Provider Non-Staff Address: [address] [place] [address], [id number] [facility] Treatment Note [facility] Treatment Note Start: 12/24/18 11:52 Freq: Status: Active Protocol: Document 02/06/19 16:51 PHILIP (Rec: 02/06/19 17:11 PHILIP [email or web address]) Speech Pathology Treatment Note Session Time Visit Start Time 13:43 Visit Stop Time 14:18 Total Visit Minutes 35 Visit Information Visit Number 10 Plan of Care Dates 12/24/18 - 03/25/19 Insurance Information [employer] Setting Treatment Setting Outpatient Care Visit Type Note Type Treatment Note Next Note Type Next Note Type Treatment Note General Information General Information Patient is a 63 year-old right hand dominant male 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 Head CTA showed right P2-P3 thrombus and CTA neck showed right vertebral artery thought to the source of embolic infarct. Post tPA patient had seizure requiring intubation (12/08-12/09) . He was discharged from [facility] . Ongoing deficits identified in available medical documentation include left hemianopsia, mild left facial droop, mild discoordination, left sided weakness and cognitive deficits. PMH also significant for blood clots, blood pressure concerns, dizziness, headaches, hearing problems. Subjective Identification Reconciled With Medical Record Observations/Patient Presentation Pt arrived 13 minutes late. Was reminded of 15-minute jos period. [facility] informed pt / that no additional OT appts had been scheduled. Pt stated he wished to continue OT and pt/ discussed with Schedulers at end of session. Chief Complaint(s) Cognitive,Other Additional Areas of Concern Visuospatial Rehab Expectation/Goals: Patient Goals Improve cognitive communication skills to return to home and work. Patient/Caregiver Compliance with Home Good Exercise Program Objective Short Term Goals 1. Using visual aids as needed , the pt will perform scanning tasks with 80% accuracy to improve reading skills. 2. The pt will perform attention tasks of moderate complexity with 80% accuracy to reduce overstimulation to auditory and visual stimuli and to return to work. 3. The pt will complete maze of moderate difficulty to improve executive function and visuospatial skills necessary to return to work. NEW GOAL: Given lists of up to 7 unrelated words/pieces of information, the pt will verbalize and use trained memory strategies (e.g., taking notes, making assoications, visualizations) to recall items after a 10 or more minute delay with 90% accuracy. [employer] Goals 1. The pt will exhibit cognitive linguistic and reading/writing skills necessary to return to work. Treatment Activities Pt completed simple and moderately complex alternating attention tasks involving letter/number trail making task and alternating between moderately complex deductive reasoning task and trail making task in 2-minute intervals. Accuracy: 100% accuracy on trail making task with min verbal cues. The pt made 3 errors in deductive reasoning task d/t misreading information. Given mod verbal prompts, the pt found and corrected errors. Suspect reading errors were impacted by the pt's sense of time pressure. Although the pt's progress was not being timed, a 2-minute timer was running to adriana a shift in tasks. Latency: The pt completed both tasks in 30 minutes, which is significantly improved for the deductive reasoning task, indicating improved understanding and ease with the task, as well as improved information processing and reasoning skills. Tracking information and place in tasks: With min prompts, the pt stated aloud where he left off in each task as he shifted to the next and did return easily to that place with need for only 1 prompt. Memory: Given 3 unrelated words early in the session, the pt was unable to recall the words at end of session. As a strategy, he had quickly written the first letters of each word on a paper and did not have access to that paper when asked to recall. This indicates that this strategy alone is not adequate for recall of oral list. Assessment Patient Response to Treatment Good Rehab Potential Good Impairments Identified ADLs,Attention,Cognitive- Linguistic Skills,Memory - Short Term,Memory - Working, Other Progress Towards Goals Slow Progress Assessment of Overall Progress Improving Assessment of Improvement Improvement in deductive reasoning skills and information processing demonstrated. Errors in reading appear to be influenced by time pressure, reducing pt's attention to details and small function words and his own notes. He appeared to assume rather than read information. This would have lead to decreased accuracy of the task, had the [facility] not prompted the pt to check his work. The pt relied on and benefited from use of visual marker to assist him in scanning for items on trail making task. He exhibited no difficulty alternating between letters and numbers or with sequences of either. The pt was unable to recall 3 unrelated words, which indicates additional attention and possibly additional memory strategies need to be employed for success. The pt's did report that he had recalled 3 lists of 5 related words each last night without difficulty. This indicates the pt would likely benefit from creating associations between items. Reviewed with Patient Goals,Progress Being Made,Home Exercise Program Patient/Caregiver Understanding Good Plan Therapeutic Contents Client Education,Cognitive- Linguistic Training,Home Exercise Program,Information Processing,Written Expression Additional Areas of Treatment Visuospatial skills Provided Patient/Caregiver Instruction Home Exercise Program,Plan of Care,Questions/Concerns Therapy Recommendations Continue with Current Program
--- NOTE | 2019-02-11 15:31 | ST.OPTN ---
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 Treatment Note Start: 12/24/18 11:52 Freq: Status: Active Protocol: Document 02/11/19 13:24 PHILIP (Rec: 02/11/19 13:30 PHILIP [email or web address]) Speech Pathology Treatment Note Session Time Visit Start Time 12:30 Visit Stop Time 13:15 Total Visit Minutes 45 Visit Information Visit Number 11 Plan of Care Dates 12/24/18 - 03/25/19 Insurance Information [employer] Setting Treatment Setting Outpatient Care Visit Type Note Type Treatment Note Next Note Type Next Note Type Treatment Note General Information General Information Patient is a 63 year-old right hand dominant male 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 Head CTA showed right P2-P3 thrombus and CTA neck showed right vertebral artery thought to the source of embolic infarct. Post tPA patient had seizure requiring intubation (12/08-12/09) . He was discharged from [facility] . Ongoing deficits identified in available medical documentation include left hemianopsia, mild left facial droop, mild discoordination, left sided weakness and cognitive deficits. PMH also significant for blood clots, blood pressure concerns, dizziness, headaches, hearing problems. Subjective Identification Reconciled With Medical Record Observations/Patient Presentation Pt arrived on time. No new complaints. Chief Complaint(s) Cognitive,Other Additional Areas of Concern Visuospatial Rehab Expectation/Goals: Patient Goals Improve cognitive communication skills to return to home and work. Patient/Caregiver Compliance with Home Good Exercise Program Objective Short Term Goals 1. Using visual aids as needed , the pt will perform scanning tasks with 80% accuracy to improve reading skills. 2. The pt will perform attention tasks of moderate complexity with 80% accuracy to reduce overstimulation to auditory and visual stimuli and to return to work. 3. The pt will complete maze of moderate difficulty to improve executive function and visuospatial skills necessary to return to work. NEW GOAL: Given lists of up to 7 unrelated words/pieces of information, the pt will verbalize and use trained memory strategies (e.g., taking notes, making assoications, visualizations) to recall items after a 10 or more minute delay with 90% accuracy. 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 The pt will exhibit cognitive linguistic and reading/writing skills necessary to return to work. Treatment Activities Continued training of short- term/working memory skills. Given lists of 3 unassociated words and opportunity to write notes, the pt wrote first letters only of words and created short sentences associating words together. He also identified other associations that words reminded him of, which added to narrative and visualizations. After a 20-min delay during which the pt completed a different task, he recalled 1 word list independently, and the remaining 2 with use of his written notes. Initiated training of memory strategies to increase recall of numbers. Given 3 numbers at a time x 12 trials, the pt identified and verbalized associations between numbers that could be used to recall the sequences, including mathematical associations, sequences, and personal associations (e.g., an old house address). The pt was not challenged to recall the number sequences in today's session in order to focus on training the brain to think in such patterns. Assessment Patient Response to Treatment Good Rehab Potential Good Impairments Identified ADLs,Attention,Cognitive- Linguistic Skills,Memory - Short Term,Memory - Working, Other Progress Towards Goals Slow Progress Assessment of Overall Progress Improving Assessment of Improvement Pt was responsive to training of thinking skills necessary for memory strategies. Was quickly able to identify associations to increase memory. Good recall of unassociated word lists with access to his written notes, which included first letters of each word. Reviewed with Patient Goals,Progress Being Made,Home Exercise Program Plan Therapeutic Contents Client Education,Cognitive- Linguistic Training,Home Exercise Program,Information Processing,Written Expression Additional Areas of Treatment Visuospatial skills Provided Patient/Caregiver Instruction Home Exercise Program,Plan of Care,Questions/Concerns Therapy Recommendations Continue with Current Program
--- NOTE | 2019-02-13 18:13 | ST.OPTN ---
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 Treatment Note Start: 12/24/18 11:52 Freq: Status: Active Protocol: Document 02/13/19 18:00 PHILIP (Rec: 02/13/19 18:13 PHILIP [email or web address]) Speech Pathology Treatment Note Session Time Visit Start Time 13:30 Visit Stop Time 14:15 Total Visit Minutes 45 Visit Information Visit Number 12 Plan of Care Dates 12/24/18 - 03/25/19 Insurance Information [employer] Setting Treatment Setting Outpatient Care Visit Type Note Type Treatment Note Next Note Type Next Note Type Treatment Note General Information General Information Patient is a 63 year-old right hand dominant male 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 Head CTA showed right P2-P3 thrombus and CTA neck showed right vertebral artery thought to the source of embolic infarct. Post tPA patient had seizure requiring intubation (12/08-12/09) . He was discharged from [facility] . Ongoing deficits identified in available medical documentation include left hemianopsia, mild left facial droop, mild discoordination, left sided weakness and cognitive deficits. PMH also significant for blood clots, blood pressure concerns, dizziness, headaches, hearing problems. Subjective Identification Reconciled With Medical Record Observations/Patient Presentation Pt arrived 5 min late. No new complaints. Pt/ reported improved recall of word lists of 3 unrelated items. Chief Complaint(s) Cognitive,Other Additional Areas of Concern Visuospatial Rehab Expectation/Goals: Patient Goals Improve cognitive communication skills to return to home and work. Patient/Caregiver Compliance with Home Good Exercise Program Objective Short Term Goals 1. Using visual aids as needed , the pt will perform scanning tasks with 80% accuracy to improve reading skills. 2. The pt will perform attention tasks of moderate complexity with 80% accuracy to reduce overstimulation to auditory and visual stimuli and to return to work. 3. The pt will complete maze of moderate difficulty to improve executive function and visuospatial skills necessary to return to work. NEW GOAL: Given lists of up to 7 unrelated words/pieces of information, the pt will verbalize and use trained memory strategies (e.g., taking notes, making assoications, visualizations) to recall items after a 10 or more minute delay with 90% accuracy. [facility] Goals 1. The pt will exhibit cognitive linguistic and reading/writing skills necessary to return to work. Treatment Activities Continued training of short- term/working memory skills. Given lists of 4 unassociated words and opportunity to write notes, the pt wrote words and their first letters only of words and created short sentences associating words together. 10- and 20-min delayed recall: 100% independently after 10 minutes , 75% independent recall (3/4 items) + additional item with verbal cue after another 10 minutes of other activity. Continued training of memory strategies to increase recall of numbers. Given sequences of 3-digit numbers, the pt identified recall strategies. In 1-back memory task, he recalled number sequences with 75% accuracy. Given 4-digit numbers representing PINs for designated items (e.g., gym locker, door lock) and using a mulligan pad, the pt used visualization/muscle memory techniques as well as association strategies to recall both each PIN and the items to which they were related. He then recalled information (PINs and related items) with 78% accuracy. Errors included producing the correct PIN for the wrong item , or combining numbers of 2 different PINs. The pt was observed to press incorrect numbers on the mulligan pad with moderate frequency, though exact data was not collected. Provided feedback to the pt about this and immediate correction when observed. This is likely a result of reduced attention vs vision deficit, as the pt is very familiar with the layout of mulligan pads. Will monitor and address as needed in future sessions. Assessment Patient Response to Treatment Good Rehab Potential Good Impairments Identified ADLs,Attention,Cognitive- Linguistic Skills,Memory - Short Term,Memory - Working, Other Progress Towards Goals Slow Progress Assessment of Overall Progress Improving Assessment of Improvement The pt is making very good progress with developing and using memory strategies to recall lists of unrelated words and of numbers. He employed similar strategies to effectively link PINs to their associated items. Errors in using mulligan pad were observed and brought to the pt 's attention, likely reflecting attention deficits vs effects of vision impairments. Will monitor. The pt expressed being much more encouraged with his progress in these memory tasks and was able to relate structured tasks to functional responsibilities. Reviewed with Patient Goals,Progress Being Made,Home Exercise Program Plan Therapeutic Contents Client Education,Cognitive- Linguistic Training,Home Exercise Program,Information Processing,Written Expression Additional Areas of Treatment Visuospatial skills Provided Patient/Caregiver Instruction Home Exercise Program,Plan of Care,Questions/Concerns Therapy Recommendations Continue with Current Program
--- NOTE | 2019-02-18 17:28 | ST.OPTN ---
Visit Care Team Role Provider Type Karen Alexandra Primary Care Provider Non-Staff Address: [address] [place] [address], [id number] Other Providers Address: Phone: Fax: Other Providers Address: Phone: Fax: Isa Arango Attending Provider Non-Staff Address: [address] [place] [address], [id number] EDITING COMPUTER PUBLISHER Treatment Note EDITING COMPUTER PUBLISHER Treatment Note Start: 12/24/18 11:52 Freq: Status: Active Protocol: Document 02/18/19 17:13 PHILIP (Rec: 02/18/19 17:28 PHILIP [email or web address]) Speech Pathology Treatment Note Session Time Visit Start Time 14:30 Visit Stop Time 15:15 Total Visit Minutes 45 Visit Information Visit Number 13 Plan of Care Dates 12/24/18 - 03/25/19 Insurance Information A[employer] Setting Treatment Setting Outpatient Care Visit Type Note Type Treatment Note Next Note Type Next Note Type Treatment Note General Information General Information Patient is a 63 year-old right hand dominant male 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 Head CTA showed right P2-P3 thrombus and CTA neck showed right vertebral artery thought to the source of embolic infarct. Post tPA patient had seizure requiring intubation (12/08-12/09) . He was discharged from [facility] . Ongoing deficits identified in available medical documentation include left hemianopsia, mild left facial droop, mild discoordination, left sided weakness and cognitive deficits. PMH also significant for blood clots, blood pressure concerns, dizziness, headaches, hearing problems. Subjective Identification Reconciled With Medical Record Observations/Patient Presentation Pt arrived on time. No new complaints. Chief Complaint(s) Cognitive,Other Additional Areas of Concern Visuospatial Rehab Expectation/Goals: Patient Goals Improve cognitive communication skills to return to home and work. Patient/Caregiver Compliance with Home Good Exercise Program Objective Short Term Goals 1. Using visual aids as needed , the pt will perform scanning tasks with 80% accuracy to improve reading skills. 2. The pt will perform attention tasks of moderate complexity with 80% accuracy to reduce overstimulation to auditory and visual stimuli and to return to work. 3. The pt will complete maze of moderate difficulty to improve executive function and visuospatial skills necessary to return to work. NEW GOAL: Given lists of up to 7 unrelated words/pieces of information, the pt will verbalize and use trained memory strategies (e.g., taking notes, making assoications, visualizations) to recall items after a 10 or more minute delay with 90% accuracy. Holiday Detector Operator Goals 1. The pt will exhibit cognitive linguistic and reading/writing skills necessary to return to work. Treatment Activities Deductive Reasoning: The pt completed complex deductive reasoning task with min-mod verbal cues. He organized information well, re- evaluating system as notes became increasingly complex/ messy. Scanning: Using a visual marker for assistance, the pt scanned lines and rows as he read a 7-line paragraph spanning the complete page left to right, and 4 short paragraphs organized in 2 columns. He exhibited some confusion transitioning between rows x4 and in transitioning between columns x2. Given time, he self- corrected errors between rows but required assistance when transitioning between columns. He benefited from EDITING COMPUTER PUBLISHER drawing a line between the upper paraphraph and the text in columns. Reading: Across the same text, the pt made 3 errors in reading, self-correcting 1 error. Errors did not impede comprehehnsion, which was WNL. Alternating Attn: The pt alternated every 10 min between deductive reasoning task and composing an email message on the computer. He transitioned between tasks smoothly and independently, able to verbalize where he had left off with the deductive reasoning task, what the ultimate goal of the task was, and what information he had already deduced. Writing: He composed 1 message , which was 2 sentences in length and written with appropriate syntax and content . Spelling was 85% accurate. Pt was able to self-correct most errors. Assessment Patient Response to Treatment Good Rehab Potential Good Impairments Identified ADLs,Attention,Cognitive- Linguistic Skills,Memory - Short Term,Memory - Working, Other Progress Towards Goals Slow Progress Assessment of Overall Progress Improving Assessment of Improvement Excellent progress with moderately complex alternating attention tasks designed to replicate work tasks. The pt continues with mild-moderate impairments in scanning and reading secondary to vision deficits; however, these are improving. The pt was able to compose an appropriate email message but did require 10 minutes to compose, proofread and correct spelling errors for a 2- sentence message. Reviewed with Patient Goals,Progress Being Made,Home Exercise Program Plan Therapeutic Contents Client Education,Cognitive- Linguistic Training,Home Exercise Program,Information Processing,Written Expression Additional Areas of Treatment Visuospatial skills Provided Patient/Caregiver Instruction Home Exercise Program,Plan of Care,Questions/Concerns Therapy Recommendations Continue with Current Program
--- NOTE | 2019-02-25 14:53 | ST.OPTN ---
Visit Care Team Role Provider Type Karen Alexandra Primary Care Provider Non-Staff Address: [address] [place] [address], [id number] Other Providers Address: Phone: Fax: Other Providers Address: Phone: Fax: Isa Arango Attending Provider Non-Staff Address: [address] [place] [address], [id number] NEW CAR SALES MANAGER Treatment Note NEW CAR SALES MANAGER Treatment Note Start: 12/24/18 11:52 Freq: Status: Active Protocol: Document 02/25/19 14:40 PHILIP (Rec: 02/25/19 14:53 PHILIP [email or web address]) Speech Pathology Treatment Note Session Time Visit Start Time 13:33 Visit Stop Time 14:18 Total Visit Minutes 45 Visit Information Visit Number 14 Plan of Care Dates 12/24/18 - 03/25/19 Insurance Information [employer] Setting Treatment Setting Outpatient Care Visit Type Note Type Treatment Note Next Note Type Next Note Type Treatment Note General Information General Information Patient is a 63 year-old right hand dominant male 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 Head CTA showed right P2-P3 thrombus and CTA neck showed right vertebral artery thought to the source of embolic infarct. Post tPA patient had seizure requiring intubation (12/08-12/09) . He was discharged from [facility] . Ongoing deficits identified in available medical documentation include left hemianopsia, mild left facial droop, mild discoordination, left sided weakness and cognitive deficits. PMH also significant for blood clots, blood pressure concerns, dizziness, headaches, hearing problems. Subjective Identification Reconciled With Medical Record Observations/Patient Presentation Pt arrived on time. No new complaints. Chief Complaint(s) Cognitive,Other Additional Areas of Concern Visuospatial Rehab Expectation/Goals: Patient Goals Improve cognitive communication skills to return to home and work. Patient/Caregiver Compliance with Home Good Exercise Program Objective Short Term Goals 1. Using visual aids as needed , the pt will perform scanning tasks with 80% accuracy to improve reading skills. 2. The pt will perform attention tasks of moderate complexity with 80% accuracy to reduce overstimulation to auditory and visual stimuli and to return to work. 3. The pt will complete maze of moderate difficulty to improve executive function and visuospatial skills necessary to return to work. NEW GOAL: Given lists of up to 7 unrelated words/pieces of information, the pt will verbalize and use trained memory strategies (e.g., taking notes, making assoications, visualizations) to recall items after a 10 or more minute delay with 90% accuracy. Rn Surgery Icu Goals 1. The pt will exhibit cognitive linguistic and reading/writing skills necessary to return to work. Treatment Activities Deductive Reasoning: The pt continued work on complex deductive reasoning task initiated last week. After orienting himself again to the task, he resumed work where last stopped with 1 error from misreading his notation from last week. Progress was slowed from the pt not having crossed off completed information during last session, which resulted in duplicate work today. The pt self-noted and corrected this. Scanning: Pt continues to benefit from using a visual marker to isolate rows when reading. No errors in locating or tracking information seen today. Writing: Pt composed a well- written email message RE a work-related topic during a timed task. Content and syntax were appropriate; 5 spelling errors noted, uncorrected d/t time constraints. Alternating Attn: The pt transitioned smoothly between deductive reasoning and email tasks. No evidence of difficulty orienting to tasks was observed. Selective Attn: The pt completed today's tasks with increased auditory noise from the busy Rehab gym environment . No overt evidence of difficulty attending to structured tasks was observed, nor did the pt c/o increased difficulty from distractions. Assessment Patient Response to Treatment Good Rehab Potential Good Impairments Identified ADLs,Attention,Cognitive- Linguistic Skills,Memory - Short Term,Memory - Working, Other Progress Towards Goals Slow Progress Assessment of Overall Progress Improving Assessment of Improvement The pt is improving in selective, alternating and focused attention skills, able to transition smoothly between moderately complex tasks in the presence of auditory noise and verbal distractions, similar to his work environment. Reading and writing skills continue to impact speed of work and be impacted by visual deficits. The pt made excellent observations regarding areas of challenge. He expressed gratitude that he was not yet working and identified reading and writing skills as those he wished to improve prior to returning to work. Reviewed with Patient Goals,Progress Being Made,Home Exercise Program Plan Therapeutic Contents Client Education,Cognitive- Linguistic Training,Home Exercise Program,Information Processing,Written Expression Additional Areas of Treatment Visuospatial skills Provided Patient/Caregiver Instruction Home Exercise Program,Plan of Care,Questions/Concerns Therapy Recommendations Continue with Current Program
--- NOTE | 2019-02-27 16:33 | ST.OPTN ---
Visit Care Team Role Provider Type Karen Alexandra Primary Care Provider Non-Staff Address: [address] [place] [address], [id number] Other Providers Address: Phone: Fax: Other Providers Address: Phone: Fax: Isa Arango Attending Provider Non-Staff Address: [address] [place] [address], [address] MUSIC ENGINEER Treatment Note MUSIC ENGINEER Treatment Note Start: 12/24/18 11:52 Freq: Status: Active Protocol: Document 02/27/19 14:21 PHILIP (Rec: 02/27/19 14:28 PHILIP [email or web address]) Speech Pathology Treatment Note Session Time Visit Start Time 13:30 Visit Stop Time 14:15 Total Visit Minutes 45 Visit Information Visit Number 15 Plan of Care Dates 12/24/18 - 03/25/19 Insurance Information [employer] Setting Treatment Setting Outpatient Care Visit Type Note Type Treatment Note Next Note Type Next Note Type Treatment Note General Information General Information Patient is a 63 year-old right hand dominant male 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 Head CTA showed right P2-P3 thrombus and CTA neck showed right vertebral artery thought to the source of embolic infarct. Post tPA patient had seizure requiring intubation (12/08-12/09) . He was discharged from [facility] . Ongoing deficits identified in available medical documentation include left hemianopsia, mild left facial droop, mild discoordination, left sided weakness and cognitive deficits. PMH also significant for blood clots, blood pressure concerns, dizziness, headaches, hearing problems. Subjective Identification Reconciled With Medical Record Observations/Patient Presentation Pt arrived on time. No new complaints. Pt/ reported Feb 11 will be the pt's last appt as the couple will be moving back to the [facility] area. Chief Complaint(s) Cognitive,Other Additional Areas of Concern Visuospatial Rehab Expectation/Goals: Patient Goals Improve cognitive communication skills to return to home and work. Patient/Caregiver Compliance with Home Good Exercise Program Objective Short Term Goals 1. Using visual aids as needed , the pt will perform scanning tasks with 80% accuracy to improve reading skills. 2. The pt will perform attention tasks of moderate complexity with 80% accuracy to reduce overstimulation to auditory and visual stimuli and to return to work. 3. The pt will complete maze of moderate difficulty to improve executive function and visuospatial skills necessary to return to work. NEW GOAL: Given lists of up to 7 unrelated words/pieces of information, the pt will verbalize and use trained memory strategies (e.g., taking notes, making assoications, visualizations) to recall items after a 10 or more minute delay with 90% accuracy. Manager User Experience Goals 1. The pt will exhibit cognitive linguistic and reading/writing skills necessary to return to work. Treatment Activities Reviewed pt's HEP task, which was a complex deductive reasoning task. Pt/ reported the pt became irritated at home when activity around him increased, creating distractions as he was attempting to complete the task and felt time pressure to do so, implying negative impact from auditory and visual distractors. The pt also noted that the note system built into the task was not working well for him, and he designed a different system to better serve him, which was helpful. This demonstrates the pt's problem solving skills at work for functional tasks. Memory: Continued education/ training of internal memory skills using word lists. Pt recalled 4-item list of unrelated words immediately and after a delay of ~15 min, independently and without hesitation. Visuospatial, Executive Function: The pt completed simple trail making task in which he connected letters to spell out a sentence. He was instructed not to lift his pencil and to work as quickly as possible. He connected 37 letters in 3'40 exhibiting left-side neglect x3, verbal prompts x3. Left-side neglect included letters that were immediately left of his pencil vs left side of page. Assessment Patient Response to Treatment Good Rehab Potential Good Impairments Identified ADLs,Attention,Cognitive- Linguistic Skills,Memory - Short Term,Memory - Working, Other Progress Towards Goals Slow Progress Assessment of Overall Progress Improving Assessment of Improvement Good progress with use of memory strategies to recall word lists of moderate complexity. Mild deficits in executive function and visuospatial skills exhibited in trail making task as pt exhibited difficulty anticipating and then finding locations of letters in a given sequence. As left-side neglect occurred with items very close to the pt's current visual point of reference, question other component of visuospatial skills may be at play, such as font size or difficulty distinguishing space between letters. The pt was receptive to feedback and did acknowledge improvement but ongoing effects of left neglect, demonstrating awareness and insight. Reviewed with Patient Goals,Progress Being Made,Home Exercise Program Plan Therapeutic Contents Client Education,Cognitive- Linguistic Training,Home Exercise Program,Information Processing,Written Expression Additional Areas of Treatment Visuospatial skills Provided Patient/Caregiver Instruction Home Exercise Program,Plan of Care,Questions/Concerns Therapy Recommendations Continue with Current Program
--- NOTE | 2019-03-11 16:48 | ST.OPTN ---
Visit Care Team Role Provider Type Karen trish Primary Care Provider Non-Staff Address: [address] [place] [address], [address] Other Providers Address: Phone: Fax: Other Providers Address: Phone: Fax: Isa Arango Attending Provider Non-Staff Address: [address] [place] [address], [address] SECURITY BUSINESS ANALYST Treatment Note SECURITY BUSINESS ANALYST Treatment Note Start: 12/24/18 11:52 Freq: Status: Active Protocol: Document 03/11/19 16:25 PHILIP (Rec: 03/11/19 16:47 PHILIP [email or web address]) Speech Pathology Treatment Note Session Time Visit Start Time 15:35 Visit Stop Time 16:25 Total Visit Minutes 50 Visit Information Visit Number 16 Plan of Care Dates 12/24/18 - 03/25/19 Insurance Information [employer] Setting Treatment Setting Outpatient Care Visit Type Note Type Treatment Note Next Note Type Next Note Type Treatment Note General Information General Information Patient is a 63 year-old right hand dominant male 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 Head CTA showed right P2-P3 thrombus and CTA neck showed right vertebral artery thought to the source of embolic infarct. Post tPA patient had seizure requiring intubation (12/08-12/09) . He was discharged from [facility] . Ongoing deficits identified in available medical documentation include left hemianopsia, mild left facial droop, mild discoordination, left sided weakness and cognitive deficits. PMH also significant for blood clots, blood pressure concerns, dizziness, headaches, hearing problems. Subjective Identification Type Name Identification Reconciled With Medical Record Observations/Patient Presentation Pt attended immediately following OT appt. Reported having had a work visit/mtg to determine back to work strategy, which looks promising and well supported. 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 Sounds like management understands his need to transition back into work and is ready to support him in that endeavor. The pt was very encouraged. Chief Complaint(s) Cognitive Patient Knowledge/Awareness of SECURITY BUSINESS ANALYST Role Excellent in Treatment Patient/Caregiver Compliance with Home Excellent Exercise Program Comment w/ family support. Objective Short Term Goals 1. Using visual aids as needed , the pt will perform scanning tasks with 80% accuracy to improve reading skills. 2. The pt will perform attention tasks of moderate complexity with 80% accuracy to reduce overstimulation to auditory and visual stimuli and to return to work. 3. The pt will complete maze of moderate difficulty to improve executive function and visuospatial skills necessary to return to work. NEW GOAL: Given lists of up to 7 unrelated words/pieces of information, the pt will verbalize and use trained memory strategies (e.g., taking notes, making assoications, visualizations) to recall items after a 10 or more minute delay with 90% accuracy. Mcc Goals 1. The pt will exhibit cognitive linguistic and reading/writing skills necessary to return to work. Treatment Activities Memory: Given 10-digit phone number and 2 10-associated- items word lists, the pt devised memory strategies including associations, sequences, and chunking. Immediate recall: 100%. Delayed recall (20 min): 95% ( 20/21 items). Reading/Scanning: Given a 6- paragraph news article presented on the computer screen, the pt read the article with 2 errors including misunderstanding of content d/t overlooking punctuation, and skipping 2 consecutive words in one sentence. Six additional errors were made but immediately self-corrected by the pt independently. The pt demonstrated occasional difficulty visually tracking from one line to the next and benefited from colored Post-It note attached to screen at left margin. He reported eye fatigue after the 5th paragraph, which he attributed to the contrast of black on white text. He stated that his computer screen at work will be configured with a different background color, which seems to be less fatiguing for his vision. Assessment Patient Response to Treatment Good Rehab Potential Good Assessment of Overall Progress Improving Assessment of Improvement Excellent progress in identifying and using memory strategies to recall 10-item lists. The pt has also made significant progress in scanning, reading and attending to the left when reading. He does continue to benefit from minor visual aids . Reviewed with Patient Goals,Progress Being Made,Home Exercise Program Plan Therapeutic Contents Client Education,Cognitive- Linguistic Training,Home Exercise Program Additional Areas of Treatment Left side neglect; visual impairment Therapy Recommendations Continue with Current Program Comment Consult with SECURITY BUSINESS ANALYST
--- NOTE | 2019-03-17 14:28 | ST.OPDS ---
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 Treatment Note COMMERCIAL LOAN COLLECTION OFFICER Treatment Note Start: 12/24/18 11:52 Freq: Status: Active Protocol: Document 03/13/19 17:22 PHILIP (Rec: 03/13/19 17:25 PHILIP [email or web address]) Speech Pathology Treatment Note Session Time Visit Start Time 13:30 Visit Stop Time 14:25 Total Visit Minutes 55 Visit Information Visit Number 17 Plan of Care Dates 12/24/18 - 03/25/19 Insurance Information [employer] Setting Treatment Setting Outpatient Care Visit Type Note Type Discharge Summary General Information General Information Patient is a 63 year-old right hand dominant male 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 Head CTA showed right P2-P3 thrombus and CTA neck showed right vertebral artery thought to the source of embolic infarct. Post tPA patient had seizure requiring intubation (12/08-12/09). He was discharged from [facility] . Ongoing deficits identified in available medical documentation include left hemianopsia, mild left facial droop, mild discoordination, left sided weakness and cognitive deficits. PMH also significant for blood clots, blood pressure concerns, dizziness, headaches, hearing problems. Subjective Identification Type Name Identification Reconciled With Medical Record Others Present Family Observations/Patient Presentation On time. [place]. present at end of session. Chief Complaint(s) Cognitive Additional Areas of Concern Visuospatial Rehab Expectation/Goals: Patient Goals Improve cognitive communication skills to return to home and work. Patient Knowledge/Awareness of COMMERCIAL LOAN COLLECTION OFFICER Role Excellent in Treatment Patient/Caregiver Compliance with Home Excellent Exercise Program Comment w/ family support. Objective Short Term Goals 1. Using visual aids as needed, the pt will perform scanning tasks with 80% accuracy to improve reading skills. IMPROVING; GOAL NOT MET (~70% acc) 2. The pt will perform attention tasks of moderate complexity with 80% accuracy to reduce overstimulation to auditory and visual stimuli and to return to work. IMPROVING; GOAL MET WITH ALTERNATING ATTENTION TASKS. ONGOING DEFICITS IN SELECTIVE AND DIVIDED ATTENTION TASKS. 3. The pt will complete maze of moderate difficulty to improve executive function and visuospatial skills necessary to return to work. IMPROVING; EXTENDED TIME REQUIRED. 4. Given lists of up to 7 unrelated words/pieces of information, the pt will verbalize and use trained memory strategies (e.g., taking notes, making assoications, visualizations) to recall items after a 10 or more minute delay with 90% accuracy. GOAL MET. Long-Term Goals 1. The pt will exhibit cognitive linguistic and reading/writing skills necessary to return to work. IMPROVING; REQUIRES MODIFICATIONS TO ENVIRONMENT AT USE OF COMPENSATORY STRATEGIES. Treatment Activities Administered Cognitive Linguistic Quick Test (CLQT) for assessment of progress since SOC. Skilled feedback and education provided. Strongly recommended pt continue with COMMERCIAL LOAN COLLECTION OFFICER services upon return to [place] and return to work. Assessment Patient Response to Treatment Excellent Rehab Potential Excellent Impairments Identified Attention,Cognitive-Linguistic Skills,Other Additional Impairments Identified Visuospatial skills, left side neglect Progress Towards Goals Excellent Progress Assessment of Overall Progress Improving Assessment of Improvement Over the course of treatment, the pt has demonstrated excellent progress toward goals as indicated in Goals section, and improvement in overall function as demonstrated by performance on CLQT: Composite Severity: 3.4, Mild. (SOC=2.6, Mild) Attention: Mild (Moderate at SOC) Memory: WNL (WNL at SOC) Executive Functions: Mild (Moderate at SOC) Language WNL (WNL at SOC) Visuospatial Skills: Mild (Severe at SOC) Clock Drawing: WNL (WNL at SOC) The pt continues with mild- moderate left-side neglect impacting his ability to scan for and track visual information. In object scanning tasks on paper the pt frequently initiates tasks at center and/or below the top of the page. He benefits from visual markers at left margins and from use of finger or book marker to track reading from line to line. Alvin has exhibited excellent ability to alternate between moderately complex tasks (e.g., alternating problem-solving tasks on paper with composing email messages at computer) with and without the presence of mild to moderate auditory and visual distractors, demonstrating ability to track starting and stopping points and maintaining consistent train of thought. He also exhibits good organizational skills, for example using consistent note-taking strategies and chunking like information. He requires mild-moderately extended time to complete tasks but does check his work for accuracy and more often than not is able to identify and correct errors. Divided attention tasks have not been directly targeted in treatment; however, the pt is verbose and frequently carries on conversation while completing treatment tasks, which appears to only mildly impact his accuracy. This is an area that is recommended for ongoing therapy particularly in preparation for return to work. It is anticipated that the pt will be successful in his work environment if provided opportunity to reduce environmental distractions, extended time for task completion, frequent breaks, and ongoing skilled intervention to guide use of compensatory strategies and increase functional skills. Reviewed with Patient Goals,Progress Being Made,Home Exercise Program Patient/Caregiver Understanding Excellent Plan Therapeutic Contents Client Education,Cognitive- Linguistic Training,Home Exercise Program Additional Areas of Treatment Left side neglect; visual impairment Provided Patient/Caregiver Instruction Home Exercise Program,Plan of Care,Questions/Concerns Therapy Recommendations Discharge from Speech Therapy, Other Comment Recommend continuing therapy in [place]
== END 2019-03-13 14:30 ==
LOC: SP 13:30
PROVIDERS: PCP Acupuncturist; Visit Provider Physical Medicine & Rehabilitation
DX: I63.9 Cerebral infarction, unspecified (principal)
CPT/HCPCS: 96125; 97127

== ENCOUNTER 2019-03-14 12:30 | Outpatient (RCR) | payer OTHER, SELFPAY ==
--- NOTE | 2018-12-27 17:18 | OT.OP.EVAL ---
Visit Care Team Role Provider Type Karen trish Primary Care Provider Non-Staff Specialty: Family Practice Address: [address] [place] [address], [id number] Email: Isa Arango Attending Provider Non-Staff Specialty: Physical Medicine and Rehab Address: [address] [place] [address], [id number] Email: Occupational Therapy Initial Evaluation OT Outpatient Adult Evaluation Start: 12/27/18 16:26 Freq: Status: Active Protocol: Document 12/27/18 16:34 AMS (Rec: 12/27/18 17:18 AMS [email or web address]) General Information Visit Start Time 12:30 Visit Stop Time 13:20 Total Visit Minutes 50 Plan of Care Dates 12/27/18-03/21/19 Insurance Information [employer] Insurance Treatment Setting Outpatient Care Note Type Initial Evaluation Referring Physician Isa Arango MD Identification Confirmed Yes: Photo ID Identification Confirmed By Patient/ Medical History Patient is a 63 year-old male 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 Head CTA showed right P2-P3 thrombus and CTA neck showed right vertebral artery thought to the source of embolic infarct. Post tPA patient had seizure requiring intubation ( 12/08-12/09). He was discharged from [facility] 12/18/18. Ongoing deficits identified in available medical documentation include left hemianopsia, mild left facial droop, mild discoordination, left sided weakness and cognitive deficits. Social History Home is in [place]. Residing locally in rental home. ADLs Comments WFL per self report; S for functional t/f however IADLs Comments Impaired Driving Ability Currently not driving. Dependent with community mobility. Meaningful Abilities Impaired. Hand makes musical wood instruments (e.g., ukulele). Has not attempted to utilize personal computer. Denied recent engagement in handwritten tasks. Vision Vision Impressions Left visual field deficit. (+) wearing of prescription glasses. (+) visual fatigue. Able to correctly identify 17 out of 36 single upper case letters (2 items) w/ visual scanning task. (-) self- directed utilization of visual modification strategies. Impaired visual motor abilities as observed w/ writing address on single lined paper. Initiated MVPT-4; unable to complete administration to assess visual perceptual abilities d/ t visual fatigue and time constraints. Observations Observations Impaired visual motor skills; (+) running into right side edge of paper w/ execution of handwriting tasks despite ample space availability. Goals Treatment Instructed in home exercise program; requested that patient outline plans for new [place] for home. Also requested that patient compose written guidelines for fabricating wood instruments/ wood projects. Instructed to focus on spatial awareness w/ completion of handwritten tasks. Short Term Goals 1. Patient will engage in additional standardized assessments relative to visual perceptual/visual motor abilities to establish baseline. Member [employer] Goals 1. Timmy will be modified independent with execution of home exercise program utilizing provided written and visual instructions from therapist. 2. Timmy will be able to execute keyboarding/typing tasks on computer with modified independence. 3. Timmy will be able to execute visual motor tasks without visual spatial errors which will support success with execution of pencil/paper tasks. Assessment/Plan Patient Response Fair Rehabilitation Potential Good Impairments Identified ADLs,Cognition,Coordination/ Dexterity,Functional Activities,Weakness, Recreational Activities, Meaningful Activities,Insight, Vision,Motor Planning,Eye-Hand Coordination Treatment Assessment Patient is a 63 year-old right hand dominant male 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 Head CTA showed right P2-P3 thrombus and CTA neck showed right vertebral artery thought to the source of embolic infarct. Post tPA patient had seizure requiring intubation (12/08-12/09) . He was discharged from [facility] . Ongoing deficits identified in available medical documentation include left hemianopsia, mild left facial droop, mild discoordination, left sided weakness and cognitive deficits. PMH also significant for blood clots, blood pressure concerns, dizziness, headaches, hearing problems. Patient Goals: Return to PLOF . Evaluation findings: Left visual field deficits; impaired visual motor abilities; impaired visual spatial/visual perceptual abilities; visual fatigue; decreased orientation to date; decreased endurance; impaired cognition; decreased insight; impaired balance; decreased functional independence with execution of IADLs. Additional standardized testing is recommended to establish baseline. Outpatient OT is recommended to address these impairments in order to maximize patient's success with active participation in meaningful activities. Home Exercise Program Please refer to treatment section of note for specific details. Reviewed with Patient Goals,Progress Being Made,Home Exercise Program Comment 12 weeks Treatment Frequency Once a Week Therapeutic Contents Active Range of Motion, Adaptive Equipment Education, Client Education,Cognitive Skills Development,Functional Activities,Home Exercise Program,Joint Protection, Manual Therapy,Education, Neurodevelopment Treatment, Neuromuscular Re-Education, Self-Care,Stretching/ Flexibility Activities, Therapeutic Activities, Therapeutic Exercises, Modalities,Sensory Re- education Modalities As Needed,As Prescribed Types of Modalities Contrast Bath,E-Stim, Functional Stimulation (FES), Ice Massage,T.E.N. Stimulation ,TENS Placement/Application Additional Types of Modalities Heat Patient Instruction Home Exercise Program,Plan of Care,Questions/Concerns
--- NOTE | 2019-01-03 15:21 | OT.OP.TRT ---
Visit Care Team Role Provider Type Karen trish Primary Care Provider Non-Staff Specialty: Family Practice Address: [address] [place] [address], [phone] Email: Isa Arango Attending Provider Non-Staff Specialty: Physical Medicine and Rehab Address: [address] [place] [address], [phone] Email: Occupational Therapy Treatment Note OT Outpatient Treatment Note - Adult Start: 12/27/18 16:26 Freq: Status: Active Protocol: Document 01/03/19 14:58 AMS (Rec: 01/03/19 15:20 AMS [id number]) OT Outpatient Adult Treatment Note Session Time Visit Start Time 12:35 Visit Stop Time 13:30 Total Visit Minutes 55 Visit Information Plan of Care Dates 12/27/18-03/21/19 Insurance Information A[employer] Insurance Setting Treatment Setting Outpatient Care Visit Type Note Type Treatment Note General Information General Information Patient is a 63 year-old right hand dominant male 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 Head CTA showed right P2-P3 thrombus and CTA neck showed right vertebral artery thought to the source of embolic infarct. Post tPA patient had seizure requiring intubation (12/08-12/09) . He was discharged from [facility] . Ongoing deficits identified in available medical documentation include left hemianopsia, mild left facial droop, mild discoordination, left sided weakness and cognitive deficits. PMH also significant for blood clots, blood pressure concerns, dizziness, headaches, hearing problems. - Subjective Identification Type Name Identification Reconciled With Medical Record Observations I want to know how I was put on short term disability. 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 I want to know what I have to do in order to be taken off of it and what I need to be able to do in order to go back to work per Timmy. Chief Complaint(s) Restricts Patient/Caregiver Compliance with Home Good Exercise Program - Objective Objective Measurements Timmy was seen 1:1 for outpatient OT. 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 Short Term Goals 1. Patient will engage in additional standardized assessments relative to visual perceptual/visual motor abilities to establish baseline. 01/03/19= 50% met. Clay Modeler Goals 1. Timmy will be modified independent with execution of home exercise program utilizing provided written and visual instructions from therapist. 2. Timmy will be able to execute keyboarding/typing tasks on computer with modified independence. 3. Timmy will be able to execute visual motor tasks without visual spatial errors which will support success with execution of pencil/paper tasks. - Treatment 1 Descriptor Finished administration of MVPT-4. Exercises 1 Descriptor HEP. Education re: visual fatigue. Instructed in additional home activities to address identified impaired visual perceptual skills. Reviewed findings w/ patient's . Both patient and his denied questions. - Assessment Patient Response to Treatment Good Rehab Potential Good Impairments Identified ADLs,Cognition,Coordination/ Dexterity,Functional Activities,Memory,Weakness, Recreational Activities, Meaningful Activities,Insight, Vision,Motor Planning,Eye-Hand Coordination Assessment of Improvement MVPT-4: The Motor-Free Visual Perception Test (4th ed.) ( MVPT-4) is an individually administered assessment of visual-perceptual skills. The MVPT-4 tasks provide information for five types of visual-perceptual abilities: spatial relationships, visual discrimination, figure-ground, visual closure, and visual memory. Timmy obtained a standard score of 84 which is slightly greater than 1 SD below the mean. Timmy had increased difficulties w/ visual memory and figure ground tasks. Education was completed re: visual fatigue; discussed impact of visual fatigue and impaired visual perceptual skills on work tasks. Recommend that therapist continues to address visual perceptual abilities; recommend that therapist administers additional visual motor tasks. Recommend that therapist focuses on maximizing patient's functional independence. Recommend following up w/ team re: short term disability inquiry. Home Exercise Program Please refer to treatment section of note for specific details. - Plan Therapy Recommendations Continue with Current Program, Advance per Rehabilitation Protocol
--- NOTE | 2019-01-10 14:07 | OT.OP.TRT ---
Visit Care Team Role Provider Type Karen trish Primary Care Provider Non-Staff Specialty: Family Practice Address: [address] [place] [address], [id number] Email: Isa Arango Attending Provider Non-Staff Specialty: Physical Medicine and Rehab Address: [address] [place] [address], [id number] Email: Occupational Therapy Treatment Note OT Outpatient Treatment Note - Adult Start: 12/27/18 16:26 Freq: Status: Active Protocol: Document 01/10/19 13:57 AMS (Rec: 01/10/19 14:07 AMS [email or web address]) OT Outpatient Adult Treatment Note Session Time Visit Start Time 12:35 Visit Stop Time 13:25 Total Visit Minutes 50 Visit Information Plan of Care Dates 12/27/18-03/21/19 Insurance Information [employer] Insurance Setting Treatment Setting Outpatient Care Visit Type Note Type Treatment Note General Information General Information Patient is a 63 year-old right hand dominant male 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 Head CTA showed right P2-P3 thrombus and CTA neck showed right vertebral artery thought to the source of embolic infarct. Post tPA patient had seizure requiring intubation (12/08-12/09) . He was discharged from [facility] . Ongoing deficits identified in available medical documentation include left hemianopsia, mild left facial droop, mild discoordination, left sided weakness and cognitive deficits. PMH also significant for blood clots, blood pressure concerns, dizziness, headaches, hearing problems. - Subjective Identification Type Name Identification Reconciled With Medical Record Observations He was feeling dizzy per . I had him eat something and he looks like he is feeling a little better. Chief Complaint(s) Restricts Patient/Caregiver Compliance with Home Good Exercise Program - Objective Objective Measurements Timmy was seen 1:1 for outpatient OT. 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 Short Term Goals 1. Patient will engage in additional standardized assessments relative to visual perceptual/visual motor abilities to establish baseline. 01/03/19= 50% met. Selling Manager Goals 1. Timmy will be modified independent with execution of home exercise program utilizing provided written and visual instructions from therapist. 2. Timmy will be able to execute keyboarding/typing tasks on computer with modified independence. 3. Timmy will be able to execute visual motor tasks without visual spatial errors which will support success with execution of pencil/paper tasks. - Treatment 2 Descriptor Visual Perceptual Activities. Figure Ground. Visual Scanning . Spatial Relationships. Complexity Upgraded Exercises 1 Descriptor HEP. Education was completed re: modifications to support success w/ keyboarding. Education was also completed in re: familiar activities to support motor planning with and without visual feedback. Both patient and his denied questions. Complexity Upgraded - Assessment Patient Response to Treatment Good Rehab Potential Good Impairments Identified ADLs,Cognition,Coordination/ Dexterity,Functional Activities,Memory,Weakness, Recreational Activities, Meaningful Activities,Insight, Vision,Motor Planning,Eye-Hand Coordination Assessment of Improvement 4 errors made w/ visual scanning activity; 2, 2-digit numbers were required for task . (+) starting in top left corner utilizing self-talk. Improving orientation w/ visual motor tasks noted compared to time of initial evaluation; this was evidenced of placement of each day of the week on single line to top left hand corner. Patient continues to present w/ impaired visual scanning/ visual perceptual skills. (+) becomes overwhelmed with visual information. Recommend that therapist focuses on maximizing patient's functional independence. Home Exercise Program Please refer to treatment section of note for specific details. Reviewed with Patient/Caregiver Goals,Progress Being Made,Home Exercise Program Patient/Caregiver Understanding Good - Plan Therapy Recommendations Continue with Current Program, Advance per Rehabilitation Protocol
--- NOTE | 2019-01-17 13:30 | OT.OP.TRT ---
Visit Care Team Role Provider Type Karen Alexandra Primary Care Provider Non-Staff Specialty: Family Practice Address: [address] [place] [address], [id number] Email: Isa Arango Attending Provider Non-Staff Specialty: Physical Medicine and Rehab Address: [address] [place] [address], [id number] Email: Occupational Therapy Treatment Note OT Outpatient Treatment Note - Adult Start: 12/27/18 16:26 Freq: Status: Active Protocol: Document 01/17/19 13:30 AMS (Rec: 01/18/19 15:36 AMS [id number]) OT Outpatient Adult Treatment Note Session Time Visit Start Time 12:30 Visit Stop Time 13:20 Total Visit Minutes 50 Visit Information Plan of Care Dates 12/27/18-03/21/19 Insurance Information [employer] Insurance Setting Treatment Setting Outpatient Care Visit Type Note Type Treatment Note General Information General Information Patient is a 63 year-old right hand dominant male 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 Head CTA showed right P2-P3 thrombus and CTA neck showed right vertebral artery thought to the source of embolic infarct. Post tPA patient had seizure requiring intubation (12/08-12/09) . He was discharged from [facility] . Ongoing deficits identified in available medical documentation include left hemianopsia, mild left facial droop, mild discoordination, left sided weakness and cognitive deficits. PMH also significant for blood clots, blood pressure concerns, dizziness, headaches, hearing problems. - Subjective Identification Type Name Identification Reconciled With Medical Record Observations No, I haven't started to blog or tried to get into my e- mail per Alvin. Chief Complaint(s) Restricts Patient/Caregiver Compliance with Home Good Exercise Program - Objective Objective Measurements Timmy was seen 1:1 for outpatient OT. 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 Short Term Goals 1. Patient will engage in additional standardized assessments relative to visual perceptual/visual motor abilities to establish baseline. 01/03/19= 50% met. Tray Drier Operator Goals 1. Timmy will be modified independent with execution of home exercise program utilizing provided written and visual instructions from therapist. 2. Timmy will be able to execute keyboarding/typing tasks on computer with modified independence. 3. Timmy will be able to execute visual motor tasks without visual spatial errors which will support success with execution of pencil/paper tasks. - Treatment 3 Descriptor Fine motor/Bimanual coordination. Keyboarding. Use of mouse. 2 Descriptor Visual Perceptual Activities. Correcting errors on computer w/ keyboarding. Exercises 1 Descriptor HEP. Provided w/ exercise flow grid. Reviewed expectations w / patient and his . - Assessment Patient Response to Treatment Good Rehab Potential Good Impairments Identified ADLs,Cognition,Coordination/ Dexterity,Functional Activities,Memory,Weakness, Recreational Activities, Meaningful Activities,Insight, Vision,Motor Planning,Eye-Hand Coordination Assessment of Improvement Impaired fine motor/bimanual coordination. Min v.c. to help support correcting of self- identified errors w/ typing exercise; 5 additional errors were not corrected on this date. Decreased active participation in recommended activities; thus, increased structure was provided to assist w/ carry-over. (+) becomes visually overwhelmed. Decreased activity tolerance; decreased endurance. (+) use of avoidance strategies. Recommend that therapist focuses on maximizing patient' s functional independence. Recommend providing additional education as needed to support carry-over of HEP/ recommendations; recommend focusing on improving patient' s self-initiation w/ engagement in recommendations. Recommend following up w/ additional members of team. Home Exercise Program Please refer to treatment section of note for specific details. Reviewed with Patient/Caregiver Goals,Progress Being Made,Home Exercise Program Patient/Caregiver Understanding Good - Plan Therapy Recommendations Continue with Current Program, Advance per Rehabilitation Protocol Additional Therapy Recommendations Consult with PT/[employer]
--- NOTE | 2019-02-19 15:30 | OT.OP.TRT ---
Visit Care Team Role Provider Type Karen trish Primary Care Provider Non-Staff Specialty: Family Practice Address: [address] [place] [address], [id number] Email: Isa Arango Attending Provider Non-Staff Specialty: Physical Medicine and Rehab Address: [address] [place] [address], [id number] Email: Occupational Therapy Treatment Note OT Outpatient Treatment Note - Adult Start: 12/27/18 16:26 Freq: Status: Active Protocol: Document 02/19/19 15:30 AMS (Rec: 03/04/19 09:14 AMS [email or web address]) OT Outpatient Adult Treatment Note Session Time Visit Start Time 13:30 Visit Stop Time 14:20 Total Visit Minutes 50 Visit Information Plan of Care Dates 12/27/18-03/21/19 Insurance Information [employer] Insurance Setting Treatment Setting Outpatient Care Visit Type Note Type Treatment Note General Information General Information Patient is a 63 year-old right hand dominant male 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 Head CTA showed right P2-P3 thrombus and CTA neck showed right vertebral artery thought to the source of embolic infarct. Post tPA patient had seizure requiring intubation (12/08-12/09) . He was discharged from [facility] . Ongoing deficits identified in available medical documentation include left hemianopsia, mild left facial droop, mild discoordination, left sided weakness and cognitive deficits. PMH also significant for blood clots, blood pressure concerns, dizziness, headaches, hearing problems. - Subjective Identification Type Name Identification Reconciled With Medical Record Observations I would like to get back to doing more things. I need to try and get back into my e- mail. I would like to get in contact with the benefits department and take care of the paperwork so that my doesn't have to per Alvin. Chief Complaint(s) Restricts Patient/Caregiver Compliance with Home Good Exercise Program - Objective Objective Measurements Timmy was seen 1:1 for outpatient OT. 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 Short Term Goals GOALS D/C Patient will engage in additional standardized assessments relative to visual perceptual/visual motor abilities to establish baseline. d/c 02/19/19 Access Liaison Goals 1. Timmy will be modified independent with execution of home exercise program utilizing provided written and visual instructions from therapist. 2. Timmy will be able to execute keyboarding/typing tasks on computer with modified independence. 3. Timmy will be able to execute visual motor tasks without visual spatial errors which will support success with execution of pencil/paper tasks. - Treatment 3 Descriptor Visual Motor/Fine Motor tasks. 2 Descriptor Visual Perceptual Activities. Correcting errors on computer w/ keyboarding. Exercises 1 Descriptor HEP/POC. HEP = complete some/ or all tasks on personalized ' To Do List'. Alvin generated a list of activities that he would like to complete in the near future with support from OT. Items included (but were not limited to) getting back on personal e-mail, preparing ifsd-vs-tyyo plan, assisting with insurance paperwork. Complexity Upgraded - Assessment Patient Response to Treatment Good Rehab Potential Good Assessment of Improvement Improving fine motor coordination/visual motor abilities. This is evidenced by Alvin completing handwritten tasks on single lined paper w / proper use of space (letter placement on line/letter placement to left margin). Handwriting legible; proper word/letter spacing noted. Decreased ability to navigate personal computer/e-mail at this time; support required w/ IADLs at this time. Support being provided by , family , and friends. Recommend that therapist focuses on maximizing patient's functional independence. Home Exercise Program Please refer to treatment section of note for specific details. Reviewed with Patient/Caregiver Goals,Progress Being Made,Home Exercise Program - Plan Therapy Recommendations Continue with Current Program, Advance per Rehabilitation Protocol Additional Therapy Recommendations Consult with TEXTILE COLORIST FORMULATOR
--- NOTE | 2019-02-26 15:30 | OT.OP.TRT ---
Visit Care Team Role Provider Type Karen trish Primary Care Provider Non-Staff Specialty: Family Practice Address: [address] [place] [address], [phone] Email: Isa Arango Attending Provider Non-Staff Specialty: Physical Medicine and Rehab Address: [address] [place] [address], [id number] Email: Occupational Therapy Treatment Note OT Outpatient Treatment Note - Adult Start: 12/27/18 16:26 Freq: Status: Active Protocol: Document 02/26/19 14:30 AMS (Rec: 03/04/19 09:22 AMS [email or web address]) OT Outpatient Adult Treatment Note Session Time Visit Start Time 13:30 Visit Stop Time 14:20 Total Visit Minutes 50 Visit Information Plan of Care Dates 12/27/18-03/21/19 Insurance Information [employer] Insurance Setting Treatment Setting Outpatient Care Visit Type Note Type Treatment Note General Information General Information Patient is a 63 year-old right hand dominant male 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 Head CTA showed right P2-P3 thrombus and CTA neck showed right vertebral artery thought to the source of embolic infarct. Post tPA patient had seizure requiring intubation (12/08-12/09) . He was discharged from [facility] . Ongoing deficits identified in available medical documentation include left hemianopsia, mild left facial droop, mild discoordination, left sided weakness and cognitive deficits. PMH also significant for blood clots, blood pressure concerns, dizziness, headaches, hearing problems. - Subjective Identification Type Name Identification Reconciled With Medical Record Observations I would like to get back to managing my own medications. My has pictures and notecards for my medications per Alvin. I made my a cup of coffee this morning. Patient/Caregiver Compliance with Home Excellent Exercise Program Comments w/ family support. - Objective Objective Measurements Timmy was seen 1:1 for outpatient OT. 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 Short Term Goals GOALS D/C Patient will engage in additional standardized assessments relative to visual perceptual/visual motor abilities to establish baseline. d/c 02/19/19 Half-Way Goals 1. Timmy will be modified independent with execution of home exercise program utilizing provided written and visual instructions from therapist. 2. Timmy will be able to execute keyboarding/typing tasks on computer with modified independence. 3. Timmy will be able to execute visual motor tasks without visual spatial errors which will support success with execution of pencil/paper tasks. - Treatment 3 Descriptor Visual Motor/Fine Motor tasks. Exercises 1 Descriptor HEP/POC. Problem solving for computer work. - Assessment Patient Response to Treatment Good Rehab Potential Good Assessment of Improvement Decreased ability to navigate personal computer/e-mail at this time; support required w/ IADLs at this time. Support being provided by , family , and friends. Recommend that therapist focuses on maximizing patient's functional independence. Home Exercise Program Please refer to treatment section of note for specific details. Reviewed with Patient/Caregiver Goals,Progress Being Made,Home Exercise Program -
--- NOTE | 2019-02-27 15:30 | OT.OP.TRT ---
Visit Care Team Role Provider Type Karen trish Primary Care Provider Non-Staff Specialty: Family Practice Address: [address] [place] [address], [phone] Email: Isa Arango Attending Provider Non-Staff Specialty: Physical Medicine and Rehab Address: [address] [place] [address], [address] Email: Occupational Therapy Treatment Note OT Outpatient Treatment Note - Adult Start: 12/27/18 16:26 Freq: Status: Active Protocol: Document 02/27/19 15:30 AMS (Rec: 03/04/19 12:03 AMS [email or web address]) OT Outpatient Adult Treatment Note Session Time Visit Start Time 10:30 Visit Stop Time 11:20 Total Visit Minutes 50 Visit Information Plan of Care Dates 12/27/18-03/21/19 Insurance Information [employer] Insurance Setting Treatment Setting Outpatient Care Visit Type Note Type Treatment Note General Information General Information Patient is a 63 year-old right hand dominant male 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 Head CTA showed right P2-P3 thrombus and CTA neck showed right vertebral artery thought to the source of embolic infarct. Post tPA patient had seizure requiring intubation (12/08-12/09) . He was discharged from [facility] . Ongoing deficits identified in available medical documentation include left hemianopsia, mild left facial droop, mild discoordination, left sided weakness and cognitive deficits. PMH also significant for blood clots, blood pressure concerns, dizziness, headaches, hearing problems. - Subjective Identification Type Name Identification Reconciled With Medical Record Observations I started a basic outline on jyotsna per Alvin in re: return to work plan in preparation for next week's meeting w/ clinical nurse manager. Patient/Caregiver Compliance with Home Excellent Exercise Program Comments w/ family support. - Objective Objective Measurements Timmy was seen 1:1 for outpatient OT. 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 Short Term Goals GOALS D/C Patient will engage in additional standardized assessments relative to visual perceptual/visual motor abilities to establish baseline. d/c 02/19/19 Care Home Goals 1. Timmy will be modified independent with execution of home exercise program utilizing provided written and visual instructions from therapist. 2. Timmy will be able to execute keyboarding/typing tasks on computer with modified independence. 3. Timmy will be able to execute visual motor tasks without visual spatial errors which will support success with execution of pencil/paper tasks. - Treatment 4 Descriptor Bimanual skills. Meaningful tasks. 3 Descriptor Visual Motor/Fine Motor tasks. Exercises 1 Descriptor HEP/POC. Problem solving for computer work. - Assessment Patient Response to Treatment Good Rehab Potential Good Assessment of Overall Progress Improving Assessment of Improvement Decreased ability to efficiently and effectively navigate personal computer/e- mail. Discussed available tools to support success w/ utilization of basic computer programs (word, powerpoint). Recommended re-familiarizing self w/ navigation of e-mail(s ) to support success w/ return to work. Continued support required w/ IADLs at this time . Support being provided by , family, and friends. Recommend that therapist focuses on maximizing patient' s functional independence. Home Exercise Program Please refer to treatment section of note for specific details. Reviewed with Patient/Caregiver Goals,Progress Being Made,Home Exercise Program - Plan Therapy Recommendations Continue with Current Program, Advance per Rehabilitation Protocol Additional Therapy Recommendations Consult with MATERIAL PLANNING ANALYST
--- NOTE | 2019-03-11 15:30 | OT.OP.TRT ---
Visit Care Team Role Provider Type Karen Alexandra Primary Care Provider Non-Staff Specialty: Family Practice Address: [address] [place] [address], [id number] Email: Isa Arango Attending Provider Non-Staff Specialty: Physical Medicine and Rehab Address: [address] [place] [address], [phone] Email: Occupational Therapy Treatment Note OT Outpatient Treatment Note - Adult Start: 12/27/18 16:26 Freq: Status: Active Protocol: Document 03/11/19 15:30 AMS (Rec: 03/20/19 14:59 AMS [email or web address]) OT Outpatient Adult Treatment Note Session Time Visit Start Time 14:30 Visit Stop Time 15:20 Total Visit Minutes 50 Visit Information Plan of Care Dates 12/27/18-03/21/19 Insurance Information A[employer] Insurance Setting Treatment Setting Outpatient Care Visit Type Note Type Treatment Note General Information General Information Patient is a 63 year-old right hand dominant male 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 Head CTA showed right P2-P3 thrombus and CTA neck showed right vertebral artery thought to the source of embolic infarct. Post tPA patient had seizure requiring intubation (12/08-12/09) . He was discharged from [facility] . Ongoing deficits identified in available medical documentation include left hemianopsia, mild left facial droop, mild discoordination, left sided weakness and cognitive deficits. PMH also significant for blood clots, blood pressure concerns, dizziness, headaches, hearing problems. - Subjective Identification Type Name Identification Reconciled With Medical Record Observations My boss has a plan in place per Timmy. They have a few things planned for me to work on. Patient/Caregiver Compliance with Home Excellent Exercise Program Comments w/ family support. - Objective Objective Measurements Timmy was seen 1:1 for outpatient OT. 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 Short Term Goals GOALS D/C Patient will engage in additional standardized assessments relative to visual perceptual/visual motor abilities to establish baseline. d/c 02/19/19 Senior Care Goals 1. Timmy will be modified independent with execution of home exercise program utilizing provided written and visual instructions from therapist. 2. Timmy will be able to execute keyboarding/typing tasks on computer with modified independence. 3. Timmy will be able to execute visual motor tasks without visual spatial errors which will support success with execution of pencil/paper tasks. - Treatment 4 Descriptor Bimanual skills. Meaningful tasks. Exercises 1 Descriptor HEP/POC. - Assessment Patient Response to Treatment Excellent Rehab Potential Excellent Assessment of Overall Progress Improving Assessment of Improvement Continued support required w/ execution of IADLs. Improving visual perceptual and visual motor skills. Benefits from compensatory strategies. Benefits from supports. Support being provided by , family, and friends. Recommend that therapist focuses on maximizing patient' s functional independence and prepares for transition to HEP in the interim until patient resumes outpatient OT. Home Exercise Program Please refer to treatment section of note for specific details. Reviewed with Patient/Caregiver Goals,Progress Being Made,Home Exercise Program Patient/Caregiver Understanding Excellent - Plan Therapy Recommendations Continue with Current Program, Advance per Rehabilitation Protocol Additional Therapy Recommendations Consult with INFORMATICS PHYSICIAN LIAISON
--- NOTE | 2019-03-14 15:30 | OT.OP.DC ---
Visit Care Team Role Provider Type Karen Alexandra Primary Care Provider Non-Staff Address: [id number] [place] [address], [address] Email: Isa Arango Attending Provider Non-Staff Address: [address] [place] [address], [id number] Email: OT Outpatient OT Outpatient Adult Evaluation Start: 12/27/18 16:26 Freq: Status: Active Protocol: Document 12/27/18 16:34 AMS (Rec: 12/27/18 17:18 AMS [id number]) General Information Session Time Visit Start Time 12:30 Visit Stop Time 13:20 Total Visit Minutes 50 Visit Information Plan of Care Dates 12/27/18-03/21/19 Insurance Information [employer] Insurance Setting Treatment Setting Outpatient Care Visit Type Note Type Initial Evaluation Referral Referring Physician Isa Arango MD Identification Identification Confirmed Yes: Photo ID Identification Confirmed By Patient/ Medical Information Medical History Patient is a 63 year-old male 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 Head CTA showed right P2-P3 thrombus and CTA neck showed right vertebral artery thought to the source of embolic infarct. Post tPA patient had seizure requiring intubation ( 12/08-12/09). He was discharged from [facility] 12/18/18. Ongoing deficits identified in available medical documentation include left hemianopsia, mild left facial droop, mild discoordination, left sided weakness and cognitive deficits. Social Information Social History Home is in [place]. Residing locally in rental home. ADLs Overall Ability Comments WFL per self report; S for functional t/f however IADLs Overall Function Comments Impaired Driving Driving Ability Currently not driving. Dependent with community mobility. Meaningful Activities Meaningful Abilities Impaired. Hand makes musical wood instruments (e.g., ukulele). Has not attempted to utilize personal computer. Denied recent engagement in handwritten tasks. Vision Impressions Vision Impressions Left visual field deficit. (+) wearing of prescription glasses. (+) visual fatigue. Able to correctly identify 17 out of 36 single upper case letters (2 items) w/ visual scanning task. (-) self- directed utilization of visual modification strategies. Impaired visual motor abilities as observed w/ writing address on single lined paper. Initiated MVPT-4; unable to complete administration to assess visual perceptual abilities d/ t visual fatigue and time constraints. Observations Observations Observations Impaired visual motor skills; (+) running into right side edge of paper w/ execution of handwriting tasks despite ample space availability. Goals Treatment Treatment Instructed in home exercise program; requested that patient outline plans for new [place] for home. Also requested that patient compose written guidelines for fabricating wood instruments/ wood projects. Instructed to focus on spatial awareness w/ completion of handwritten tasks. Short Term Goals Short Term Goals 1. Patient will engage in additional standardized assessments relative to visual perceptual/visual motor abilities to establish baseline. Raw Stock Machine Feeder Goals Raw Stock Machine Feeder Goals 1. Timmy will be modified independent with execution of home exercise program utilizing provided written and visual instructions from therapist. 2. Timmy will be able to execute keyboarding/typing tasks on computer with modified independence. 3. Timmy will be able to execute visual motor tasks without visual spatial errors which will support success with execution of pencil/paper tasks. Assessment/Plan Assessment Patient Response Fair Rehabilitation Potential Good Impairments Identified ADLs,Cognition,Coordination/ Dexterity,Functional Activities,Weakness, Recreational Activities, Meaningful Activities,Insight, Vision,Motor Planning,Eye-Hand Coordination Treatment Assessment Patient is a 63 year-old right hand dominant male 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 Head CTA showed right P2-P3 thrombus and CTA neck showed right vertebral artery thought to the source of embolic infarct. Post tPA patient had seizure requiring intubation (12/08-12/09) . He was discharged from [facility] . Ongoing deficits identified in available medical documentation include left hemianopsia, mild left facial droop, mild discoordination, left sided weakness and cognitive deficits. PMH also significant for blood clots, blood pressure concerns, dizziness, headaches, hearing problems. Patient Goals: Return to PLOF . Evaluation findings: Left visual field deficits; impaired visual motor abilities; impaired visual spatial/visual perceptual abilities; visual fatigue; decreased orientation to date; decreased endurance; impaired cognition; decreased insight; impaired balance; decreased functional independence with execution of IADLs. Additional standardized testing is recommended to establish baseline. Outpatient OT is recommended to address these impairments in order to maximize patient's success with active participation in meaningful activities. Home Exercise Program Please refer to treatment section of note for specific details. Reviewed with Patient Goals,Progress Being Made,Home Exercise Program Plan Comment 12 weeks Treatment Frequency Once a Week Therapeutic Contents Active Range of Motion, Adaptive Equipment Education, Client Education,Cognitive Skills Development,Functional Activities,Home Exercise Program,Joint Protection, Manual Therapy,Education, Neurodevelopment Treatment, Neuromuscular Re-Education, Self-Care,Stretching/ Flexibility Activities, Therapeutic Activities, Therapeutic Exercises, Modalities,Sensory Re- education Modalities As Needed,As Prescribed Types of Modalities Contrast Bath,E-Stim, Functional Stimulation (FES), Ice Massage,T.E.N. Stimulation ,TENS Placement/Application Additional Types of Modalities Heat Patient Instruction Home Exercise Program,Plan of Care,Questions/Concerns Sensory Assessment Sensory Profile2 Functional Wrist/Hand Scan Hand Side OT Outpatient Treatment Note - Adult Start: 12/27/18 16:26 Freq: Status: Active Protocol: Document 03/14/19 14:30 AMS (Rec: 03/20/19 15:22 AMS [email or web address]) OT Outpatient Adult Treatment Note Session Time Visit Start Time 12:30 Visit Stop Time 13:25 Total Visit Minutes 55 Visit Information Plan of Care Dates 12/27/18-03/21/19 Insurance Information [employer] Insurance Setting Treatment Setting Outpatient Care Visit Type Note Type Treatment Note General Information General Information Patient is a 63 year-old right hand dominant male 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 Head CTA showed right P2-P3 thrombus and CTA neck showed right vertebral artery thought to the source of embolic infarct. Post tPA patient had seizure requiring intubation (12/08-12/09) . He was discharged from [facility] . Ongoing deficits identified in available medical documentation include left hemianopsia, mild left facial droop, mild discoordination, left sided weakness and cognitive deficits. PMH also significant for blood clots, blood pressure concerns, dizziness, headaches, hearing problems. - Subjective Identification Type Name Identification Reconciled With Medical Record Others Present Family Observations My boss has a plan in place per Timmy. They have a few things planned for me to work on. Additional Areas of Concern Visuospatial Patient Expectation/Goals Improve cognitive communication skills to return to home and work. Patient/Caregiver Compliance with Home Excellent Exercise Program Comments w/ family support. - Objective Short Term Goals GOALS D/C Patient will engage in additional standardized assessments relative to visual perceptual/visual motor abilities to establish baseline. d/c 02/19/19 Prison Goals 1. The pt will exhibit cognitive linguistic and reading/writing skills necessary to return to work. IMPROVING; REQUIRES MODIFICATIONS TO ENVIRONMENT AT USE OF COMPENSATORY STRATEGIES. - Treatment 4 Descriptor Bimanual skills. Meaningful tasks. Exercises 1 Descriptor HEP/POC. - Assessment Patient Response to Treatment Excellent Rehab Potential Excellent Progress Towards Goals Excellent Progress Assessment of Overall Progress Improving Assessment of Improvement Patient made good progress since time of initial evaluation; he has demonstrated progress in the areas of functional independence and his ability to engage in meaningful activities. He has recently gotten back onto his personal computer, as well as resumed making morning coffee for his , as well as other simple meals. He has demonstrated improvements in his ability to combine visual and fine motor skills; for example, by the end of treatment he was able to list items on left margin w / 'talking himself' through it versus writing items in middle of paper and w/ incorrect spacing of information relative to writing personal address. He also demonstrated improvements in his visual perceptual abilities; he improved from correctly identifying 17 of 36 single letter items to 35 of 36. He also demonstrated improved performance on visual memory tasks; he progressed from correctly recalling 6 out of 10 to 9 out of 10. Timmy also demonstrated increased tolerance for and ability to distinguish important versus unimportant visual information within a visually overwhelming image. Despite progress, Timmy continues to encounter fatigue (including w / participation in visual tasks) and has not been able to return to prior level of independence w/ engagement in meaningful activities (e.g., navigating personal computer). He has been observed to benefit from visual and verbal supports for functional problem solving (e.g., pictures of medication containers and individual medications). Home Exercise Program Please refer to treatment section of note for specific details. Reviewed with Patient/Caregiver Goals,Progress Being Made,Home Exercise Program Patient/Caregiver Understanding Excellent - Plan Therapy Recommendations Discharge from Occupational Therapy Additional Therapy Recommendations Recommend cont w/ OT in [place]
== END 2019-04-01 11:37 ==
LOC: OT 12:30
PROVIDERS: PCP Acupuncturist; Visit Provider Physical Medicine & Rehabilitation
DX: I63.9 Cerebral infarction, unspecified (principal)
CPT/HCPCS: 93010; 97165; 97530

== ENCOUNTER → 2023-05-02 11:38 | Outpatient (CLI) | payer OTHER, SELFPAY ==
[2023-05-02 12:49] LABS: Alanine Aminotransferase 31 IU/L (<50); Albumin 4.3 g/dL (3.5-5.0); Albumin Globulin Ratio 1.4 (1.0-2.8); Alkaline Phosphatase 96 U/L (38-126); Aspartate Aminotransferase 25 IU/L (17-59); BUN Creatinine Ratio 20.5 (6-22); Bilirubin Total 0.9 mg/dL (0.2-1.3); Blood Urea Nitrogen 25 mg/dL (9-20); Calcium 9.8 mg/dL (8.4-10.2); Carbon Dioxide 25 mmol/L (22-32); Chloride 103 mmol/L (98-107); Cholesterol 156 mg/dL (140-199); Estimated Glomerular Filt Rate > 60 mL/min (>60); Glucose 96 mg/dL (80-110); HDL Cholesterol 34 mg/dL (40-60); HEMOLYSIS 18 (0-50); LDL Cholesterol Calculated 62 mg/dL (<100); Potassium 4.7 mmol/L (3.4-5.1); Sodium 139 mmol/L (137-145); Total Protein 7.3 g/dL (6.3-8.2); Triglycerides 302 mg/dL (35-150)
== END ==
PROVIDERS: PCP Family Medicine; Referring Provider Family Medicine; Visit Provider Family Medicine
DX: I63.431 Cerebral infarction due to embolism of right posterior cerebral artery (principal)
CPT/HCPCS: 36415; 80053; 80061; 83036

== ENCOUNTER → 2023-05-03 09:53 | Outpatient (CLI) | payer OTHER, SELFPAY ==
[2023-05-03 11:34] LABS: Creatinine Urine Random 214.8 mg/dL
[2023-05-03 11:39] LABS: Microalbumi Creatinin Ratio Ur 13.5 ug/mg CR (<30); Microalbumin Urine Random 2.9 mg/dL (0-1.6)
== END ==
PROVIDERS: PCP Family Medicine; Referring Provider Family Medicine; Visit Provider Family Medicine
DX: I10 Essential (primary) hypertension (principal); Z86.73 Personal history of transient ischemic attack (TIA), and cerebral infarction without residual deficits
CPT/HCPCS: 82043; 82570

== ENCOUNTER 2023-10-20 15:06 | Emergency (ER) | payer OTHER, SELFPAY ==
[2023-10-20] VITALS (10 sets, daily range): BP systolic 141–162; BP diastolic 68–74; PULSE 46–59; RESP 10–17; TEMP 36.8; O2SAT 96–98; BMI 33.0
--- NOTE | 2023-10-20 15:12 | DI.CT.S_ITS ---
PROCEDURE: CT CERVICAL SPINE WO CON INDICATIONS: Fall with midline neck pain TECHNIQUE: Noncontrast 3 mm thick sections acquired from the skull base to the T4 level. Sagittal and coronal reformats were then constructed. For radiation dose reduction, the following was used: automated exposure control, adjustment of mA and/or kV according to patient size. COMPARISON: None. FINDINGS: Image quality: Excellent. Bones: No fractures or dislocations. Visualized superior ribs are intact. Soft tissues: Prevertebral soft tissues are normal in thickness. No paravertebral hematomas. No apical pneumothoraces. IMPRESSION: No displaced fracture or traumatic subluxation. Partially visualized right occipital encephalomalacia related to documented prior ischemic injury in the distant past in that area. Dictated by: Quincy Presley M.D. on 10/20/2023 at 16:02 Approved by: Quincy Presley M.D. on 10/20/2023 at 16:03
--- NOTE | 2023-10-20 15:12 | DI.CT.S_ITS ---
PROCEDURE: CT HEAD/BRAIN WO CON INDICATIONS: Fallen thinners with a head injury TECHNIQUE: Noncontrast 4.5 mm thick angled axial sections acquired from the foramen magnum to the vertex, with coronal and sagittal reformats. For radiation dose reduction, the following was used: automated exposure control, adjustment of mA and/or kV according to patient size. COMPARISON: None. FINDINGS: Image quality: Diagnostic. CSF spaces: Basal cisterns are patent. No extra-axial fluid collections. Ventricles are normal in size and shape. Brain: No midline shift. No intracranial masses or hemorrhage. Sheth-white matter interface is normal. Skull and face: Calvarium and visualized facial bones are intact, without suspicious lesions. Sinuses: Visualized sinuses and mastoids are clear. 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 No trauma found. Dictated by: Quincy Presley M.D. on 10/20/2023 at 16:01 Approved by: Quincy Presley M.D. on 10/20/2023 at 16:02
--- NOTE | 2023-10-20 15:21 | ED_ITS ---
HPI - General Adult General Chief complaint: Trauma Stated complaint: fell Time Seen by Provider: 10/20/23 15:08 Source: patient and family Mode of arrival: Ambulatory History of Present Illness HPI narrative: 68-year-old male. Is on anticoagulation who is here for evaluation of an episode that occurred just about an hour ago where he states that he became lightheaded and fell. He did hit his head. He was having midline neck pain. A cervical collar was placed in triage. He reports no other injuries from the event. He states that he was normally bradycardic with a heart rate in the 50s. He states that he has had a longstanding history of what his primary doctor describes as ?orthostatic hypotension. He states that he can sometimes become lightheaded specifically when he stands up. When he does get lightheaded he is normally able to sit himself down to avoid falling but that did not happen today. Here in the ER he reports no chest pain, shortness of breath. He was not lightheaded here in the ER. He ambulated into the emergency room. No extremity complaints. Related Data Previous Rx's Medication Instructions Recorded amlodipine 5 mg tablet 5 mg PO DAILY #90 tabs 05/08/23 atorvastatin 40 mg tablet 40 mg PO DAILY #90 tabs 05/08/23 citalopram 20 mg tablet 20 mg PO DAILY #90 tabs 05/08/23 losartan 50 mg tablet 50 mg PO DAILY #90 tabs 05/08/23 potassium chloride 10 mEq 10 meq PO DAILY #90 tabs 05/08/23 tablet,extended release apixaban 5 mg tablet (Eliquis) 5 mg PO BID #180 tabs 08/08/23 finasteride 5 mg tablet 5 mg PO DAILY #90 tabs 09/03/23 levetiracetam 1,000 mg tablet 1,000 mg PO BID #180 tabs 10/06/23 tamsulosin 0.4 mg capsule 0.8 mg (2 x 0.4 mg) PO DAILY #180 10/12/23 caps Allergies Allergy/AdvReac Type Severity Reaction Status Date / Time Milk Containing Products AdvReac Mild Congested Verified 10/20/23 15:15 (Dairy) Review of Systems Review of Systems Narrative: See HPI Patient History Medical History Hypertension CVA (cerebral vascular accident) Surgical History (Updated 05/03/23 @ 09:23 by Fahad Garcia MD) H/O vasectomy (~1997) H/O umbilical hernia repair (~1954) Social History Smoking Status: Never smoker alcohol intake: current (Rare 1-2x monthly) substance use type: does not use Smoking Status: Never smoker alcohol intake frequency: other Substance Use Type: does not use Exam Initial Vital Signs Initial Vital Signs: Vital Signs Temperature 98.2 F 10/20/23 15:07 Pulse Rate 55 L 10/20/23 15:07 Respiratory Rate 17 10/20/23 15:07 Blood Pressure 162/74 H 10/20/23 15:07 Pulse Oximetry 96 10/20/23 15:07 Oxygen Delivery Method Room Air 10/20/23 15:07 Const General: cooperative and well developed HENMT Head: normal to inspection and normocephalic Resp Effort & Inspection: normal respiratory effort Auscultation: clear to auscultation bilaterally Cardio Rate: bradycardic Rhythm: regular rhythm GI Inspection: normal to inspection and non-distended Back/Spine/Pelvis Cervical Spine: cervical spinal tenderness Skin General: no rashes or lesions noted Neuro General: patient alert and patient awake Extrem General: capillary refill normal Course Orders Ordered: ED Orders 10/20/23 15:12 CT cervical spine wo con Stat CT head/brain wo con Stat 10/20/23 15:13 EKG-12 Lead Stat 10/20/23 15:19 Complete Blood Count AUTO DIFF Stat Comprehensive Metabolic Panel Stat Lipase Stat Vital Signs Vital signs: Vital Signs - 8 hr 10/20/23 15:07 10/20/23 15:09 10/20/23 15:10 Temperature 98.2 F Pulse Rate 55 L 59 L 53 L Respiratory Rate 17 Blood Pressure 162/74 H Pulse Oximetry 96 97 97 Oxygen Delivery Method Room Air 10/20/23 15:10 10/20/23 15:30 10/20/23 15:42 Temperature Pulse Rate 48 L Respiratory Rate 10 L Blood Pressure 162/74 H 141/68 H Pulse Oximetry 97 Oxygen Delivery Method 10/20/23 15:42 10/20/23 16:00 10/20/23 16:00 Temperature Pulse Rate 47 L 47 L Respiratory Rate 12 10 L Blood Pressure 146/68 H Pulse Oximetry 97 97 Oxygen Delivery Method Medical Decision Making Lab Data Lab results reviewed: Yes I reviewed the patient's lab results. 10/20/23 15:19 10/20/23 15:19 Labs: Lab Results 10/20/23 Range/Units 15:19 WBC 8.0 (4.5-11.0) X10^3/uL RBC 4.32 L (4.5-5.9) X10^6/uL Hgb 13.6 (13.5-17.5) g/dL Hct 39.8 L (41-53) % MCV 92.2 (80-100) fL MCH 31.5 (26-34) PG MCHC 34.2 (30-36) % RDW 13.9 (11.6-14.8) % Plt Count 213 (150-400) X10^3/uL Neut % (Auto) 71.3 (50-75) % Lymph % (Auto) 16.4 L (25-40) % [place] % (Auto) 9.9 (3-14) % Eos % (Auto) 1.8 L (2-4) % Baso % (Auto) 0.6 (0-2) % Neut # (Auto) 5700 (7512-8703) /uL Lymph # (Auto) 1300 (8896-1200) /uL [place] # (Auto) 800 (0-900) /uL Eos # (Auto) 100 (0-450) /uL Baso # (Auto) 100 (0-100) /uL Sodium 138 (137-145) mmol/L Potassium 4.8 (3.4-5.1) mmol/L Chloride 108 H (98-107) mmol/L Carbon Dioxide 24 (22-32) mmol/L BUN 22 H (9-20) mg/dL Creatinine 1.48 H (0.66-1.25) mg/dL Estimated GFR 51 L (>60) mL/min BUN/Creatinine Ratio 14.9 (6-22) Glucose 102 (80-110) mg/dL Calcium 9.1 (8.4-10.2) mg/dL Total Bilirubin 0.8 (0.2-1.3) mg/dL AST 24 (17-59) IU/L ALT 28 (<50) IU/L Alkaline Phosphatase 90 (38-126) U/L Total Protein 7.3 (6.3-8.2) g/dL Albumin 4.3 (3.5-5.0) g/dL Globulin 3.0 (1.7-4.1) g/dL Albumin/Globulin Ratio 1.4 (1.0-2.8) Lipase 48 (23-300) U/L Imaging Data CT - cervical spine: Radiologist's Impression: PROCEDURE: CT CERVICAL SPINE WO CON INDICATIONS: Fall with midline neck pain TECHNIQUE: Noncontrast 3 mm thick sections acquired from the skull base to the T4 level. Sagittal and coronal reformats were then constructed. For radiation dose reduction, the following was used: automated exposure control, adjustment of mA and/or kV according to patient size. COMPARISON: None. FINDINGS: Image quality: Excellent. Bones: No fractures or dislocations. Visualized superior ribs are intact. Soft tissues: Prevertebral soft tissues are normal in thickness. No paravertebral hematomas. No apical pneumothoraces. IMPRESSION: No displaced fracture or traumatic subluxation. Partially visualized right occipital encephalomalacia related to documented prior ischemic injury in the distant past in that area. 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 No trauma found. ECG Data Attestation: I personally reviewed and interpreted this ECG as follows: Interpretation: Sinus bradycardia Ventricular rate of 48 Normal axis Normal QRS Normal QTC No ST T wave changes MDM Narrative Medical decision making narrative: Head CT and cervical spine CT showed no acute pathology. He was bradycardic but he states he has been bradycardic since he has been in college. His heart rate in the low 50s is not unusual for him. The episodes are becoming lightheaded and passing out is also not unusual. He did not injure anything from the event today. He is talked with his primary doctor in his discussions about him following up with cardiology which I agree with. Will discharge patient home. No changes to any of his medications for now. He was given return precautions. He expressed understanding and agreement. Discharge Plan Departure Patient Disposition: Home Clinical Impression: Syncope, Bradycardia Instructions: DI for Syncope in Adults (Fainting) Activity Restrictions/Additional Instructions: I do recommend that you continue to take all of your medications as directed. I also recommend following up with a automotive parts counter assistant. Return to the emergency department for new or worsening symptoms. Prescriptions: No Action tamsulosin 0.4 mg capsule 0.8 mg PO DAILY Qty: 180 1RF atorvastatin 40 mg tablet 40 mg PO DAILY Qty: 90 2RF citalopram 20 mg tablet 20 mg PO DAILY Qty: 90 2RF potassium chloride 10 mEq tablet extended release 10 meq PO DAILY Qty: 90 1RF losartan 50 mg tablet 50 mg PO DAILY Qty: 90 1RF amlodipine 5 mg tablet 5 mg PO DAILY Qty: 90 1RF Eliquis 5 mg tablet 5 mg PO BID Qty: 180 0RF finasteride 5 mg tablet 5 mg PO DAILY Qty: 90 1RF levetiracetam 1,000 mg tablet 1,000 mg PO BID Qty: 180 2RF Referrals: Fahad Garcia MD [Primary Care Provider] - Stand Alone Forms: Patient Portal/API
--- NOTE | 2023-10-20 15:24 | EKG_ITS ---
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
[2023-10-20 15:59] LABS: Add Manual Diff / Slide Review NO; Basophils Absolute Auto 100 /uL (0-100); Basophils Percent Auto 0.6 % (0-2); Eosinophils Absolute Auto 100 /uL (0-450); Eosinophils Percent Auto 1.8 % (2-4); Hematocrit 39.8 % (41-53); Hemoglobin 13.6 g/dL (13.5-17.5); Lymphocytes Absolute Auto 1300 /uL (1100-4500); Lymphocytes Percent Auto 16.4 % (25-40); Mean Corpuscular HGB Conc 34.2 % (30-36); Mean Corpuscular Hemoglobin 31.5 PG (26-34); Mean Corpuscular Volume 92.2 fL (80-100); Monocytes Absolute Auto 800 /uL (0-900); Monocytes Percent Auto 9.9 % (3-14); Neutrophils Absolute Auto 5700 /uL (1500-7000); Neutrophils Percent Auto 71.3 % (50-75); Platelet Count 213 X10^3/uL (150-400); Red Blood Cell Count 4.32 X10^6/uL (4.5-5.9); Red Cell Distribution Width 13.9 % (11.6-14.8)
[2023-10-20 16:04] LABS: Alanine Aminotransferase 28 IU/L (<50); Albumin 4.3 g/dL (3.5-5.0); Albumin Globulin Ratio 1.4 (1.0-2.8); Alkaline Phosphatase 90 U/L (38-126); Aspartate Aminotransferase 24 IU/L (17-59); BUN Creatinine Ratio 14.9 (6-22); Bilirubin Total 0.8 mg/dL (0.2-1.3); Blood Urea Nitrogen 22 mg/dL (9-20); Calcium 9.1 mg/dL (8.4-10.2); Carbon Dioxide 24 mmol/L (22-32); Chloride 108 mmol/L (98-107); Estimated Glomerular Filt Rate 51 mL/min (>60); Glucose 102 mg/dL (80-110); Lipase 48 U/L (23-300); Sodium 138 mmol/L (137-145); Total Protein 7.3 g/dL (6.3-8.2)
[2023-10-20 16:12] LABS: HEMOLYSIS 65 (0-50); Potassium 4.8 mmol/L (3.4-5.1)
== END 2023-10-20 17:33 | disposition home or self-care (01) ==
PROVIDERS: Emergency Provider Emergency Medicine; PCP Family Medicine
DX: R55 Syncope and collapse (principal); R00.1 Bradycardia, unspecified; W18.30XA Fall on same level, unspecified, initial encounter
CPT/HCPCS: 36415; 70450; 72125; 80053; 83690; 85025; 93005; 99284

== ENCOUNTER → 2024-04-23 10:19 | Outpatient (CLI) | payer OTHER, SELFPAY ==
[2024-04-23 11:13] LABS: Cholesterol 155 mg/dL (140-199); HDL Cholesterol 30 mg/dL (40-60); LDL Cholesterol Calculated 83 mg/dL (<100); Triglycerides 210 mg/dL (35-150)
[2024-04-23 11:47] LABS: Prostate Specific Antigen 1.06 ng/mL (0.10-4.00)
== END ==
PROVIDERS: PCP Family Medicine; Referring Provider Family Medicine; Visit Provider Family Medicine
DX: I10 Essential (primary) hypertension (principal); E78.1 Pure hyperglyceridemia; Z86.73 Personal history of transient ischemic attack (TIA), and cerebral infarction without residual deficits
CPT/HCPCS: 36415; 80061; 84153

== ENCOUNTER → 2024-06-18 15:30 | Outpatient (CLI) | payer OTHER, SELFPAY ==
[2024-06-18 18:11] LABS: Hepatitis B Surface Antigen NEGATIVE s/c (NEGATIVE)
[2024-06-20 01:40] LABS: Hepatitis B Core Antibody Negative (Negative); Hepatitis BE Antigen Negative (Negative)
== END ==
LOC: LAB 15:31
PROVIDERS: PCP Family Medicine; Referring Provider Family Medicine; Visit Provider Family Medicine
DX: Z20.5 Contact with and (suspected) exposure to viral hepatitis (principal)
CPT/HCPCS: 36415; 86704; 87340; 87350

== ENCOUNTER 2024-07-26 17:45 | Emergency (ER) | payer MEDICARE, SELFPAY ==
[2024-07-26] VITALS (15 sets, daily range): BP systolic 122–159; BP diastolic 61–84; PULSE 46–53; RESP 11–29; TEMP 36.6; O2SAT 93–99; BMI 32.5
--- NOTE | 2024-07-26 17:54 | EKG_ITS ---
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
--- NOTE | 2024-07-26 17:57 | DI.RAD.S_ITS ---
PROCEDURE: XR CHEST 1V INDICATIONS: chest pain TECHNIQUE: One view of the chest was acquired. COMPARISON: None. FINDINGS: Surgical changes and devices: Loop recorder. Lungs and pleura: Lungs are clear. No pleural effusions or pneumothorax. Mediastinum: Mediastinal contours appear normal. Heart size is normal. Bones and chest wall: No suspicious bony lesions. Overlying soft tissues appear unremarkable. IMPRESSION: No acute cardiopulmonary abnormality is seen. Fracture deformity of the right midclavicle, appears chronic. Dictated by: Virgil Moore M.D. on 07/26/2024 at 18:20 Approved by: Virgil Moore M.D. on 07/26/2024 at 18:21
--- NOTE | 2024-07-26 17:59 | ED.CHESTPAIN ---
HPI - Chest Pain General Chief Complaint: Chest Pain Stated Complaint: PCP sent in for chest pressure Time Seen by Provider: 07/26/24 17:59 History of Present Illness HPI narrative: 69-year-old male history of atrial fibrillation posterior rates CVA stroke in the remote past dyslipidemia bradycardia and hypertension presents with chest pain that started at 11:30 a.m. this morning. He describes the pain as pressure type sensation like his 20 lb dog sitting on his chest it lasted for 10-15 minutes he is currently asymptomatic at this point not having any pressure tightness heaviness. He spoke with his PCP who advised him to come in to the ER to be evaluated. He has never had a stress test or cardiac catheterization. Other than what is stated 14 pt ROS is negative. Related Data Previous Rx's Medication Instructions Recorded potassium chloride 10 mEq 10 meq PO DAILY #90 tabs 05/08/23 tablet,extended release levetiracetam 1,000 mg tablet 1,000 mg PO BID #180 tabs 10/06/23 finasteride 5 mg tablet 5 mg PO DAILY #90 tabs 02/26/24 citalopram 20 mg tablet 30 mg (1.5 x 20 mg) PO DAILY #135 04/16/24 tabs atorvastatin 40 mg tablet 40 mg PO DAILY #90 tabs 05/28/24 losartan 50 mg tablet 50 mg PO DAILY #90 tabs 06/13/24 tamsulosin 0.4 mg capsule 0.8 mg (2 x 0.4 mg) PO DAILY #180 07/10/24 caps apixaban 5 mg tablet (Eliquis) 5 mg PO BID #180 tabs 07/19/24 Allergies Allergy/AdvReac Type Severity Reaction Status Date / Time Milk Containing Products AdvReac Mild Congested Verified 07/26/24 17:58 (Dairy) Review of Systems Review of Systems ROS Unobtainable: All systems reviewed & are unremarkable except as noted in HPI and below Patient History Medical History Hypertension CVA (cerebral vascular accident) Surgical History (Updated 05/03/23 @ 09:23 by Fahad Garcia MD) H/O vasectomy (~1997) H/O umbilical hernia repair (~1954) Social History Smoking Status: Never smoker alcohol intake: current (Rare 1-2x monthly) substance use type: does not use alcohol intake frequency: other Exam Narrative Exam Narrative: GENERAL: [69] year old patient appears stated age. Well-developed patient, in mild distress. HEAD: Atraumatic. Normocephalic. EYES: Pupils equal round and reactive. Extraocular motions intact. No scleral icterus. No injection or drainage. ENT: Nose without bleeding, purulent drainage. Throat without erythema, tonsillar hypertrophy or exudate. Airway patent. NECK: Trachea midline. Non tender CARDIOVASCULAR: Regular rate and rhythm without murmurs, gallops, or rubs. RESPIRATORY: Clear to auscultation. Breath sounds equal bilaterally. No wheezes, rales, or rhonchi. GASTROINTESTINAL: Abdomen soft, non-tender, nondistended. EXTREMITIES: No edema or joint tenderness. BACK: Nontender without deformity or crepitance. No flank tenderness. NEURO: AOx3. SKIN: No rash or erythema of visible areas Initial Vital Signs Initial Vital Signs: Vital Signs Temperature 97.8 F 07/26/24 17:50 Pulse Rate 52 L 07/26/24 17:50 Respiratory Rate 22 07/26/24 17:50 Blood Pressure 155/77 H 07/26/24 17:50 Pulse Oximetry 99 07/26/24 17:50 Oxygen Delivery Method Room Air 07/26/24 17:50 Scores HEART Score Heart Score history: Moderately Suspicious Heart Score EKG: Normal Heart Score Age: > or = 65 years old Heart Score risk factors: > 3 risk factors or hx of atherosclerotic disease Heart Score troponin: < or = to normal limit Heart Score Total: 5 Course Orders Ordered: ED Orders 07/26/24 17:57 XR chest 1V Stat EKG-12 Lead Stat 07/26/24 18:04 Complete Blood Count AUTO DIFF Stat Comprehensive Metabolic Panel Stat Lipase Stat Magnesium Stat NT-proBNP (BNP-Adult 18+) Stat PTT Partial Thromboplastin Jeff Stat Prothrombin Time INR Stat Troponin & CK Cardiac Panel Stat 07/26/24 20:00 Trop I [Troponin I] Stat Discontinued Medications Aspirin (Aspirin 81 Mg Chew Tab) 324 mg PO NOW ONE Stop: 07/26/24 18:11 Last Admin: 07/26/24 18:18 Dose: 324 mg Documented By: RENETTA Nitroglycerin (Nitroglycerin Oint 1 Inch/Gm Oint...G.) 0.5 inch TOP NOW ONE Stop: 07/26/24 18:12 Last Admin: 07/26/24 18:19 Dose: 0.5 inch Documented By: RENETTA Vital Signs Vital signs: Vital Signs - 8 hr 07/26/24 17:50 07/26/24 17:53 07/26/24 17:53 Temperature 97.8 F Pulse Rate 52 L 53 L Respiratory Rate 22 25 H Blood Pressure 155/77 H 155/77 H Pulse Oximetry 99 99 Oxygen Delivery Method Room Air 07/26/24 18:00 07/26/24 18:19 07/26/24 18:31 Temperature Pulse Rate 52 L 52 L 49 L Respiratory Rate 22 11 L Blood Pressure 158/77 H Pulse Oximetry 97 95 Oxygen Delivery Method 07/26/24 18:31 07/26/24 18:46 07/26/24 18:46 Temperature Pulse Rate 47 L Respiratory Rate 12 Blood Pressure 122/61 135/64 Pulse Oximetry 94 Oxygen Delivery Method 07/26/24 19:00 07/26/24 19:00 07/26/24 19:15 Temperature Pulse Rate 48 L 47 L Respiratory Rate 13 14 Blood Pressure 132/65 Pulse Oximetry 96 94 Oxygen Delivery Method 07/26/24 19:15 07/26/24 19:30 07/26/24 19:30 Temperature Pulse Rate 46 L Respiratory Rate 13 Blood Pressure 134/63 135/66 Pulse Oximetry 93 Oxygen Delivery Method 07/26/24 19:45 07/26/24 19:45 07/26/24 20:00 Temperature Pulse Rate 46 L 48 L Respiratory Rate 16 13 Blood Pressure 133/69 Pulse Oximetry 95 96 Oxygen Delivery Method 07/26/24 20:00 07/26/24 20:15 07/26/24 20:15 Temperature Pulse Rate 46 L Respiratory Rate 12 Blood Pressure 142/68 H 135/64 Pulse Oximetry 96 Oxygen Delivery Method 07/26/24 20:30 07/26/24 20:30 Temperature Pulse Rate 48 L Respiratory Rate 11 L Blood Pressure 130/61 Pulse Oximetry 95 Oxygen Delivery Method MDM - Chest Pain Lab Data 07/26/24 18:04 07/26/24 18:04 Labs: Lab Results 07/26/24 07/26/24 Range/Units 18:04 20:00 WBC 7.3 (4.5-11.0) X10^3/uL RBC 4.56 (4.5-5.9) X10^6/uL Hgb 14.3 (13.5-17.5) g/dL Hct 42.1 (41-53) % MCV 92.3 (80-100) fL MCH 31.4 (26-34) PG MCHC 34.1 (30-36) % RDW 14.6 (11.6-14.8) % Plt Count 228 (150-400) X10^3/uL Neut % (Auto) 63.5 (50-75) % Lymph % (Auto) 21.6 L (25-40) % [place] % (Auto) 12.3 (3-14) % Eos % (Auto) 1.9 L (2-4) % Baso % (Auto) 0.7 (0-2) % Neut # (Auto) 4700 (7631-1993) /uL Lymph # (Auto) 1600 (7165-2875) /uL [place] # (Auto) 900 (0-900) /uL Eos # (Auto) 100 (0-450) /uL Baso # (Auto) 100 (0-100) /uL PT 13.7 H (9.4-12.5) SECONDS INR 1.2 (0.9-1.3) APTT 39 H (25.1-36.5) SECONDS Sodium 141 (137-145) mmol/L Potassium 4.6 (3.4-5.1) mmol/L Chloride 106 (98-107) mmol/L Carbon Dioxide 29 (22-32) mmol/L BUN 22 H (9-20) mg/dL Creatinine 1.62 H (0.66-1.25) mg/dL Estimated GFR 45 L (>60) mL/min BUN/Creatinine Ratio 13.6 (6-22) Glucose 95 (70-99) mg/dL Calcium 9.4 (8.4-10.2) mg/dL Magnesium 1.9 (1.6-2.3) mg/dL Total Bilirubin 1.1 (0.2-1.3) mg/dL AST 24 (17-59) IU/L ALT 28 (<50) IU/L Alkaline Phosphatase 86 (38-126) U/L Total Creatine Kinase 101 (55-170) U/L Troponin I < 0.012 < 0.012 (0.01-0.034) ng/mL NT-Pro-B Natriuret Pep 654 H (<125) pg/mL Total Protein 7.2 (6.3-8.2) g/dL Albumin 4.3 (3.5-5.0) g/dL Globulin 2.9 (1.7-4.1) g/dL Albumin/Globulin Ratio 1.5 (1.0-2.8) Lipase 54 (23-300) U/L Imaging Data Chest x-ray: Radiologist's Impression: [address] [address] XRay Report Signed Patient: Timmy Silva MR#: [id number] : 1955 Acct:[id number] Age/Sex: 69 / M Date of Service: 07/26/24 Loc: ED Accession Number: [id number] Procedure: XR chest 1V Ordering Provider: Bill Olmos MD PROCEDURE: XR CHEST 1V INDICATIONS: chest pain TECHNIQUE: One view of the chest was acquired. COMPARISON: None. FINDINGS: Surgical changes and devices: Loop recorder. Lungs and pleura: Lungs are clear. No pleural effusions or pneumothorax. Mediastinum: Mediastinal contours appear normal. Heart size is normal. Bones and chest wall: No suspicious bony lesions. Overlying soft tissues appear unremarkable. IMPRESSION: No acute cardiopulmonary abnormality is seen. Fracture deformity of the right midclavicle, appears chronic. Dictated by: Virgil Moore M.D. on 07/26/2024 at 18:20 Approved by: Virgil Moore M.D. on 07/26/2024 at 18:21 ECG Data Interpretation: Sinus [place] HR 53 IA 136 QRS [address]-t wave change Unchanged from 10/20/23 [facility] Narrative Medical decision making narrative: All lab work EKG chest x-ray vital signs nurse triage note medication list and all previous ER visits reviewed. Patient was given aspirin and nitro paste 1 in here was completely chest pain-free on arrival he had a heart score of 5. Case was discussed with Dr. Fang university relations vice president on-call after 2 sets of troponin were negative no indication at this time for inpatient admission okay to discharge home for outpatient stress test. He has an appointment this coming Monday with his PCP for follow up. Differential diagnosis includes STEMI, NSTEMI, unstable angina, GERD, anxiety. Discharge Plan Departure Patient Disposition: Home Clinical Impression: Chest pain Qualifiers: Chest pain type: chest pain on breathing Qualified Code(s): R07.1 - Chest pain on breathing Instructions: DI for Chest Pain Activity Restrictions/Additional Instructions: Return with new or worsening symptoms. Follow up with PCP appointment next Monday for outpatient stress test. Prescriptions: No Action citalopram 20 mg tablet 30 mg PO DAILY Qty: 135 1RF potassium chloride 10 mEq tablet extended release 10 meq PO DAILY Qty: 90 1RF levetiracetam 1,000 mg tablet 1,000 mg PO BID Qty: 180 2RF finasteride 5 mg tablet 5 mg PO DAILY Qty: 90 1RF atorvastatin 40 mg tablet 40 mg PO DAILY Qty: 90 0RF losartan 50 mg tablet 50 mg PO DAILY Qty: 90 3RF tamsulosin 0.4 mg capsule 0.8 mg PO DAILY Qty: 180 1RF Eliquis 5 mg tablet 5 mg PO BID Qty: 180 3RF Referrals: Fahad Garcia MD [Primary Care Provider] - Stand Alone Forms: Patient Portal/API/Survey
[2024-07-26 18:17] LABS: Add Manual Diff / Slide Review NO; Basophils Absolute Auto 100 /uL (0-100); Basophils Percent Auto 0.7 % (0-2); Eosinophils Absolute Auto 100 /uL (0-450); Eosinophils Percent Auto 1.9 % (2-4); Hematocrit 42.1 % (41-53); Hemoglobin 14.3 g/dL (13.5-17.5); Lymphocytes Absolute Auto 1600 /uL (1100-4500); Lymphocytes Percent Auto 21.6 % (25-40); Mean Corpuscular HGB Conc 34.1 % (30-36); Mean Corpuscular Hemoglobin 31.4 PG (26-34); Mean Corpuscular Volume 92.3 fL (80-100); Monocytes Absolute Auto 900 /uL (0-900); Monocytes Percent Auto 12.3 % (3-14); Neutrophils Absolute Auto 4700 /uL (1500-7000); Neutrophils Percent Auto 63.5 % (50-75); Platelet Count 228 X10^3/uL (150-400); Red Blood Cell Count 4.56 X10^6/uL (4.5-5.9); Red Cell Distribution Width 14.6 % (11.6-14.8); White Blood Cell Count 7.3 X10^3/uL (4.5-11.0)
[2024-07-26] MEDS: ASPIRIN 81 MG CHEW TAB 324 MG PO (18:18)
[2024-07-26] MEDS: NITROGLYCERIN OINT 1 INCH/GM OINT...G. 0.5 INCH TOP (18:19)
[2024-07-26 18:25] LABS: INR 1.2 (0.9-1.3); Prothrombin Time 13.7 SECONDS (9.4-12.5)
[2024-07-26 18:27] LABS: PTT Partial Thromboplastin Tim 39 SECONDS (25.1-36.5)
[2024-07-26 18:30] LABS: Alanine Aminotransferase 28 IU/L (<50); Albumin 4.3 g/dL (3.5-5.0); Albumin Globulin Ratio 1.5 (1.0-2.8); Alkaline Phosphatase 86 U/L (38-126); Aspartate Aminotransferase 24 IU/L (17-59); BUN Creatinine Ratio 13.6 (6-22); Bilirubin Total 1.1 mg/dL (0.2-1.3); Blood Urea Nitrogen 22 mg/dL (9-20); Calcium 9.4 mg/dL (8.4-10.2); Carbon Dioxide 29 mmol/L (22-32); Chloride 106 mmol/L (98-107); Creatine Kinase 101 U/L (55-170); Estimated Glomerular Filt Rate 45 mL/min (>60); Globulin 2.9 g/dL (1.7-4.1); Glucose 95 mg/dL (70-99); HEMOLYSIS < 15 (0-50); Lipase 54 U/L (23-300); Magnesium 1.9 mg/dL (1.6-2.3); Potassium 4.6 mmol/L (3.4-5.1); Sodium 141 mmol/L (137-145); Total Protein 7.2 g/dL (6.3-8.2)
[2024-07-26 18:42] LABS: NT-proBNP (BNP-Adult 18+) 654 pg/mL (<125); Troponin I < 0.012 ng/mL (0.01-0.034)
[2024-07-26 20:28] LABS: Troponin I < 0.012 ng/mL (0.01-0.034)
== END 2024-07-26 21:24 | disposition home or self-care (01) ==
PROVIDERS: Emergency Medicine; Emergency Provider Family Medicine; PCP Family Medicine
DX: R07.1 Chest pain on breathing (principal); Z86.73 Personal history of transient ischemic attack (TIA), and cerebral infarction without residual deficits
CPT/HCPCS: 36415; 71045; 80053; 82550; 83690; 83735; 83880; 84484; 85025; 85610; 85730; 93005; 93010; 99284

== ENCOUNTER 2024-11-04 17:20 | Observation (INO) | payer MEDICARE, OTHER, SELFPAY ==
[2024-11-04] VITALS (25 sets, daily range): BP systolic 148–196; BP diastolic 66–88; PULSE 39–53; RESP 10–24; O2SAT 97–100; BMI 32.5
--- NOTE | 2024-11-04 17:20 | DI.CT.S_ITS ---
PROCEDURE: CT CERVICAL SPINE WO CON INDICATIONS: Fall on thinners face first TECHNIQUE: Noncontrast 3 mm thick sections acquired from the skull base to the T4 level. Sagittal and coronal reformats were then constructed. For radiation dose reduction, the following was used: automated exposure control, adjustment of mA and/or kV according to patient size. COMPARISON: [facility], CT, CT FACIAL BONES WO CON, 11/04/2024, 17:27. [facility], CT, CT HEAD/BRAIN WO CON, 11/04/2024, 17:27. [facility], CT, CT CERVICAL SPINE WO CON, 10/20/2023, 15:29. FINDINGS: Image quality: Excellent. Bones: No fractures or dislocations. Visualized superior ribs are intact. Multiple levels of significant degenerative change can be seen, which are similar to the prior and worst inferiorly. Soft tissues: Prevertebral soft tissues are normal in thickness. No paravertebral hematomas. No apical pneumothoraces. Remote posterior infarcts are seen, right worse than left. IMPRESSION: No displaced fracture or traumatic subluxation. Underlying degenerative changes are seen. Dictated by: Fernando Goff M.D. on 11/04/2024 at 17:00 Approved by: Fernando Goff M.D. on 11/04/2024 at 17:01
--- NOTE | 2024-11-04 17:20 | DI.CT.S_ITS ---
PROCEDURE: CT FACIAL BONES WO CON INDICATIONS: Fall on thinners face first TECHNIQUE: Noncontrast 2.5 mm thick axial images acquired from the mandible through the frontal sinuses, with coronal and sagittal reformatting. For radiation dose reduction, the following was used: automated exposure control, adjustment of mA and/or kV according to patient size. COMPARISON: [facility], CT, CT HEAD/BRAIN WO CON, 10/20/2023, 15:29. [facility], CT, CT CERVICAL SPINE WO CON, 11/04/2024, 17:27. [facility], CT, CT HEAD/BRAIN WO CON, 11/04/2024, 17:27. FINDINGS: Image quality: Excellent. Bones and teeth: There is stable irregularity of the maxillary spine, as on series 2, image 47. Orbital salgado are intact. Sinus salgado show no fracture or deformity. Nasal bones and septum are intact. There is mild chronic rightward nasal septal deviation, with a rightward directed bony nasal septal spur. Visualized portions of the mandible demonstrate no fractures or subluxation. Zygomatic arches are intact. Pterygoid plates are intact. Visualized portions of the skull base and auditory canals are intact. Sinuses: Mild scattered hemorrhage can be seen within the paranasal sinuses. Soft tissues: Soft tissue swelling can be seen involving the left perioral region. Soft tissue swelling is also seen of the nose. Vascular: Visualized vascular structures appear normal in the absence of contrast. Bony vascular foramina and canals are intact. IMPRESSION: No definite facial bone fracture seen. Facial soft tissue swelling is seen. Mild blood can be seen within the paranasal sinuses. Dictated by: Fernando Goff M.D. on 11/04/2024 at 17:02 Approved by: Fernando Goff M.D. on 11/04/2024 at 17:04
--- NOTE | 2024-11-04 17:20 | DI.CT.S_ITS ---
PROCEDURE: CT HEAD/BRAIN WO CON INDICATIONS: Fall on thinners with face first head strike TECHNIQUE: Noncontrast 4.5 mm thick angled axial sections acquired from the foramen magnum to the vertex, with coronal and sagittal reformats. For radiation dose reduction, the following was used: automated exposure control, adjustment of mA and/or kV according to patient size. COMPARISON: [facility], CT, CT HEAD/BRAIN WO CON, 10/20/2023, 15:29. FINDINGS: Image quality: Diagnostic. CSF spaces: Basal cisterns are patent. No extra-axial fluid collections. The ventricles are symmetric in size and shape. Brain: Stable posterior infarctions are seen, which are worst involving the right [employer] territory. No intracranial bleeds or mass effect. There is cerebral volume loss, with resultant ventricular and sulcal prominence. There are periventricular and deep white matter chronic small vessel ischemic changes. There is intracranial internal carotid artery atherosclerosis. Skull and face: Calvarium and visualized facial bones appear intact, without suspicious lesions. Sinuses: Visualized sinuses and mastoids are clear. IMPRESSION: No acute intracranial hemorrhage is seen. No acute intracranial process is seen. Remote, stable bilateral posterior cerebral infarcts are seen, which are most prominent involving the right [employer] territory. Dictated by: Fernando Goff M.D. on 11/04/2024 at 17:04 Approved by: Fernando Goff M.D. on 11/04/2024 at 17:05
--- NOTE | 2024-11-04 17:22 | DI.RAD.S_ITS ---
PROCEDURE: XR CHEST 1V INDICATIONS: Chest Pain TECHNIQUE: One view of the chest was acquired. COMPARISON: [facility], , XR CHEST 1V, 07/26/2024, 18:01. FINDINGS: Surgical changes and devices: Electronic device projects over the heart. Lungs and pleura: Lungs are clear. No pleural effusions or pneumothorax. Mediastinum: Mediastinal contours appear normal. Heart size is normal. Bones and chest wall: Remote prior right clavicle shaft fracture. IMPRESSION: No acute cardiopulmonary abnormality is seen. Approved by: Cm Marie M.D. on 11/04/2024 at 17:48
--- NOTE | 2024-11-04 17:22 | EKG_ITS ---
[address] [address] [address], [place] [address] Test Date: 2024-11-04 Pat Name: Timmy Silva Department: Room: Gender: Male Overlocker: KAVIN : 1955 Requested By: Order Number: [id number] Reading MD: Alexander Isaacs Measurements Intervals [place] Rate: 42 P: 46 NE: 146 QRS: -1 QRSD: 82 T: 52 QT: 492 QTc: 410 Interpretive Statements Marked sinus bradycardia Electronically Signed On 11-09-2024 7:47:32 PDT by Alexander Isaacs
[2024-11-04 17:30] LABS: Add Manual Diff / Slide Review NO; Hematocrit 39.4 % (41-53); Hemoglobin 13.5 g/dL (13.5-17.5); Lymphocytes Absolute Auto 1500 /uL (1100-4500); Mean Corpuscular HGB Conc 34.2 % (30-36); Mean Corpuscular Hemoglobin 31.5 PG (26-34); Mean Corpuscular Volume 92.2 fL (80-100); Platelet Count 196 X10^3/uL (150-400)
[2024-11-04 17:37] LABS: INR 1.2 (0.9-1.3); Prothrombin Time 13.2 SECONDS (9.4-12.5)
[2024-11-04 17:40] LABS: PTT Partial Thromboplastin Tim 29 SECONDS (25.1-36.5)
[2024-11-04 17:41] LABS: Alanine Aminotransferase 34 IU/L (<50); Albumin 4.3 g/dL (3.5-5.0); Albumin Globulin Ratio 1.4 (1.0-2.8); Alkaline Phosphatase 89 U/L (38-126); Blood Urea Nitrogen 21 mg/dL (9-20); Calcium 9.3 mg/dL (8.4-10.2); Carbon Dioxide 23 mmol/L (22-32); Chloride 106 mmol/L (98-107); Creatine Kinase 133 U/L (55-170); Estimated Glomerular Filt Rate 56 mL/min (>60); Globulin 3.0 g/dL (1.7-4.1); Glucose 124 mg/dL (70-99); HEMOLYSIS < 15 (0-50); Lipase 45 U/L (23-300); Magnesium 1.7 mg/dL (1.6-2.3); Potassium 4.1 mmol/L (3.4-5.1); Sodium 139 mmol/L (137-145); Total Protein 7.3 g/dL (6.3-8.2)
[2024-11-04 17:53] LABS: NT-proBNP (BNP-Adult 18+) 150 pg/mL (<125); Troponin I < 0.012 ng/mL (0.01-0.034)
--- NOTE | 2024-11-04 18:01 | ED_ITS ---
HPI - General Adult General Chief complaint: Trauma Stated complaint: Dizzy @ home Time Seen by Provider: 11/04/24 18:00 Source: patient and EMS Mode of arrival: EMS History of Present Illness HPI narrative: 69-year-old male with history of stroke 2019 with residual decreased visual acuity, legal blindness unable to drive but has decreased visual acuity, no double vision as baseline, on Eliquis chronic anticoagulation, orthostatic hypotension history. Was working on approach pain tank when he got up quickly and started walking, then fell, felt dizzy. No chest pain or shortness of breath. No shaking activity. Struck his face. Had nose bleeding that seems to be resolved. Has headache. Unclear if he had any loss of consciousness. No nausea or vomiting. Onset (ago): minute(s) Related Data Previous Rx's ?Medication ?Instructions ?Recorded losartan 50 mg tablet 50 mg PO DAILY #90 tabs 06/01 06/25 tamsulosin 0.4 mg capsule 0.8 mg (2 x 0.4 mg) PO DAILY #180 07/10/24 caps levetiracetam 1,000 mg tablet 1,000 mg PO BID #180 tab s 08/27/24 apixaban 5 mg tablet (Eliquis) 5 mg PO BID #180 tabs 0 09/24/24 citalopram 20 mg tablet 30 mg (1.5 x 20 mg) PO DAILY #135 09/30/24 tabs atorvastatin 40 mg tablet 40 mg PO DAILY #90 tabs 05/28 finasteride 5 mg tablet 5 mg PO DAILY #90 tabs 10/15 spironolactone 25 mg tablet 25 mg PO DAILY #30 tabs Allergies Allergy/AdvReac Type Severity Reaction Status Date / Time Milk Containing Products AdvReac Mild Congested Verified 08/02/24 13:31 (Dairy) Patient History Medical History Hypertension CVA (cerebral vascular accident) Surgical History (Updated 05/03/23 @ 09:23 by Fahad Garcia MD) H/O vasectomy (~1997) H/O umbilical hernia repair (~1954) Social History household members: spouse Smoking Status: Never smoker alcohol intake: current substance use type: does not use Smoking Status: Never smoker alcohol intake frequency: other Alcohol type: wine Exam Narrative Exam Narrative: GENERAL: Well-developed patient, in mild distress. HEAD: Atraumatic. Normocephalic. EYES: Pupils equal round and reactive. Extraocular motions intact. No scleral icterus. No injection or drainage. ENT: Nose without bleeding, purulent drainage. Throat without erythema, tonsillar hypertrophy or exudate. Airway patent. Some tenderness nasal bridge without crepitance or gross deformity. Blood dried bilateral a without active epistaxis. NECK: Trachea midline. Non tender CARDIOVASCULAR: Regular rate and rhythm without murmurs, gallops, or rubs. RESPIRATORY: Clear to auscultation. Breath sounds equal bilaterally. No wheezes, rales, or rhonchi. GASTROINTESTINAL: Abdomen soft, non-tender, nondistended. EXTREMITIES: No edema or joint tenderness. BACK: Nontender without deformity or crepitance. No flank tenderness. NEURO: AOx3. Motor functions grossly nonfocal. SKIN: No rash or erythema of visible areas Initial Vital Signs Initial Vital Signs: Vital Signs Blood Pressure 189/84 H 11/04/24 17:16 Course Orders Ordered: Discontinued Medications Acetaminophen (Acetaminophen 325 Mg Tablet) 650 mg PO Q6HR PRN PRN Reason: Fever/Mild Pain (1-3) Hydrocodone Bitart/Acetaminophen (Hydrocodone/Acet 5/325 Tablet) 1 tab PO Q4HR PRN PRN Reason: Pain, Severe (7-10) Amlodipine Besylate (Amlodipine 5 Mg Tablet) 5 mg PO BID [facility] Last Admin: 11/05/24 09:11 Dose: 5 mg Documented By: LEE Apixaban (Apixaban 5 Mg Tablet) 5 mg PO BID [facility] Last Admin: 11/05/24 09:11 Dose: 5 mg Documented By: Admin: 11/04/24 23:49 Dose: 5 mg Documented By: Atorvastatin Calcium (Atorvastatin 20 Mg Tablet) 40 mg PO BEDTIME [facility] Last Admin: 11/04/24 23:48 Dose: 40 mg Documented By: Atropine Sulfate (Atropine 1 Mg/10 Ml Syringe) 0.5 mg IV PRN PRN PRN Reason: Heart Rate-Low 30s & symptomat Levetiracetam (Levetiracetam 250 Mg Tablet) 1,000 mg PO BID [facility] Last Admin: 11/05/24 09:11 Dose: 1,000 mg Documented By: Admin: 11/04/24 23:48 Dose: 1,000 mg Documented By: Losartan Potassium (Losartan 50 Mg Tablet) 50 mg PO DAILY PRN PRN Reason: SBP >= 200 Last Admin: 11/05/24 00:02 Dose: 50 mg Documented By: Losartan Potassium (Losartan 50 Mg Tablet) 50 mg PO BID [facility] Last Admin: 11/05/24 09:11 Dose: 50 mg Documented By: LEE Spironolactone (Spironolactone 25 Mg Tablet) 25 mg PO DAILY [facility] Last Admin: 11/05/24 09:11 Dose: 25 mg Documented By: LEE Tamsulosin HCl (Tamsulosin 0.4 Mg Capsule) 0.8 mg PO BID [facility] Last Admin: 11/05/24 09:10 Dose: 0.8 mg Documented By: Admin: 11/04/24 23:48 Dose: 0.8 mg Documented By: Tamsulosin HCl (Tamsulosin 0.4 Mg Capsule) 0.8 mg PO BEDTIME [facility] Vital Signs Vital signs: Vital Signs - 8 hr 11/04/24 17:16 11/04/24 17:17 11/04/24 17:17 Pulse Rate 46 L 45 L Respiratory Rate 20 Blood Pressure 189/84 H Pulse Oximetry 98 Oxygen Delivery Method 11/04/24 17:24 11/04/24 17:41 11/04/24 17:42 Pulse Rate 41 L 40 L Respiratory Rate 18 Blood Pressure 189/84 H 196/88 H Pulse Oximetry 98 99 Oxygen Delivery Method Room Air 11/04/24 17:42 11/04/24 18:00 11/04/24 18:01 Pulse Rate 41 L 39 L 40 L Respiratory Rate 14 12 Blood Pressure Pulse Oximetry 100 100 100 Oxygen Delivery Method 11/04/24 18:01 11/04/24 18:30 11/04/24 18:31 Pulse Rate 39 L 39 L Respiratory Rate 13 11 L Blood Pressure 178/79 H Pulse Oximetry 100 99 Oxygen Delivery Method 11/04/24 18:31 11/04/24 19:00 11/04/24 19:01 Pulse Rate 41 L 40 L Respiratory Rate 12 15 Blood Pressure 186/81 H Pulse Oximetry 98 99 Oxygen Delivery Method 11/04/24 19:01 11/04/24 19:30 11/04/24 19:33 Pulse Rate 41 L 40 L Respiratory Rate 10 L 12 Blood Pressure 189/81 H Pulse Oximetry 99 99 Oxygen Delivery Method 11/04/24 19:33 11/04/24 20:00 11/04/24 20:01 Pulse Rate 43 L Respiratory Rate 13 Blood Pressure 185/82 H 189/84 H Pulse Oximetry 98 Oxygen Delivery Method 11/04/24 20:01 11/04/24 20:30 11/04/24 20:31 Pulse Rate 43 L 48 L 53 L Respiratory Rate 13 16 24 Blood Pressure Pulse Oximetry 97 99 99 Oxygen Delivery Method 11/04/24 20:31 11/04/24 21:00 11/04/24 21:01 Pulse Rate 44 L 44 L Respiratory Rate 20 12 Blood Pressure 148/66 H Pulse Oximetry 99 100 Oxygen Delivery Method Room Air 11/04/24 21:01 Pulse Rate Respiratory Rate Blood Pressure 180/79 H Pulse Oximetry Oxygen Delivery Method Medical Decision Making Lab Data Lab results reviewed: Yes I reviewed the patient's lab results. Lab results narrative: White blood cell count 5900, hemoglobin 13.5, platelets adequate. Glucose 124. BUN 21 with creatinine 1.35. Serum CO2 23 normal, electrolytes normal. Liver functions normal. Lipase normal. Troponin negative/unmeasurable. BNP not elevated. 11/04/24 17:00 11/05/24 04:10 Labs: Lab Results 11/04/24 11/04/24 Range/Units 17:00 19:10 WBC 5.9 (4.5-11.0) X10^3/uL RBC 4.28 L (4.5-5.9) X10^6/uL Hgb 13.5 (13.5-17.5) g/dL Hct 39.4 L (41-53) % MCV 92.2 (80-100) fL MCH 31.5 (26-34) PG MCHC 34.2 (30-36) % RDW 13.7 (11.6-14.8) % Plt Count 196 (150-400) X10^3/uL Neut % (Auto) 60.5 (50-75) % Lymph % (Auto) 25.5 (25-40) % [place] % (Auto) 10.2 (3-14) % Eos % (Auto) 3.3 (2-4) % Baso % (Auto) 0.5 (0-2) % Neut # (Auto) 3600 (3558-4152) /uL Lymph # (Auto) 1500 (3574-0276) /uL [place] # (Auto) 600 (0-900) /uL Eos # (Auto) 200 (0-450) /uL Baso # (Auto) 0 (0-100) /uL PT 13.2 H (9.4-12.5) SECONDS INR 1.2 (0.9-1.3) APTT 29 (25.1-36.5) SECONDS Sodium 139 (137-145) mmol/L Potassium 4.1 (3.4-5.1) mmol/L Chloride 106 (98-107) mmol/L Carbon Dioxide 23 (22-32) mmol/L BUN 21 H (9-20) mg/dL Creatinine 1.35 H (0.66-1.25) mg/dL Estimated GFR 56 L (>60) mL/min BUN/Creatinine Ratio 15.6 (6-22) Glucose 124 H (70-99) mg/dL Calcium 9.3 (8.4-10.2) mg/dL Magnesium 1.7 (1.6-2.3) mg/dL Total Bilirubin 0.9 (0.2-1.3) mg/dL AST 26 (17-59) IU/L ALT 34 (<50) IU/L Alkaline Phosphatase 89 (38-126) U/L Total Creatine Kinase 133 (55-170) U/L Troponin I < 0.012 < 0.012 (0.01-0.034) ng/mL NT-Pro-B Natriuret Pep 150 H (<125) pg/mL Total Protein 7.3 (6.3-8.2) g/dL Albumin 4.3 (3.5-5.0) g/dL Globulin 3.0 (1.7-4.1) g/dL Albumin/Globulin Ratio 1.4 (1.0-2.8) Lipase 45 (23-300) U/L TSH 2.91 (0.47-4.68) uIU/mL Point of Care Testing Glucose POC 150 Point of care testing: Point of Care Testing Glucose POC 150 Imaging Data Chest x-ray: Radiologist's Impression: [address] [address] XRay Report Signed Patient: Timmy Silva MR#: [id number] : 1955 Acct:[id number] Age/Sex: 69 / M Date of Service: 11/04/24 Loc: ED Accession Number: [id number] Procedure: XR chest 1V Ordering Provider: Sai Donaldson D.O. PROCEDURE: XR CHEST 1V INDICATIONS: Chest Pain TECHNIQUE: One view of the chest was acquired. COMPARISON: [facility], CR, XR CHEST 1V, 07/26/2024, 18:01. FINDINGS: Surgical changes and devices: Electronic device projects over the heart. Lungs and pleura: Lungs are clear. No pleural effusions or pneumothorax. Mediastinum: Mediastinal contours appear normal. Heart size is normal. Bones and chest wall: Remote prior right clavicle shaft fracture. IMPRESSION: No acute cardiopulmonary abnormality is seen. Approved by: Cm Marie M.D. on 11/04/2024 at 17:48 CT scan - head: Radiologist's Impression: [address] [address] [address] Scan Report Signed Patient: Timmy Silva MR#: [id number] : 1955 Acct:[id number] Age/Sex: 69 / M Date of Service: 11/04/24 Loc: ED Accession Number: [id number] Procedure: CT head/brain wo con Ordering Provider: Sai Donaldson D.O. PROCEDURE: CT HEAD/BRAIN WO CON INDICATIONS: Fall on thinners with face first head strike TECHNIQUE: Noncontrast 4.5 mm thick angled axial sections acquired from the foramen magnum to the vertex, with coronal and sagittal reformats. For radiation dose reduction, the following was used: automated exposure control, adjustment of mA and/or kV according to patient size. COMPARISON: [facility], CT, CT HEAD/BRAIN WO CON, 10/20/2023, 15:29. FINDINGS: Image quality: Diagnostic. CSF spaces: Basal cisterns are patent. No extra-axial fluid collections. The ventricles are symmetric in size and shape. Brain: Stable posterior infarctions are seen, which are worst involving the right [employer] territory. No intracranial bleeds or mass effect. There is cerebral volume loss, with resultant ventricular and sulcal prominence. There are periventricular and deep white matter chronic small vessel ischemic changes. There is intracranial internal carotid artery atherosclerosis. Skull and face: Calvarium and visualized facial bones appear intact, without suspicious lesions. Sinuses: Visualized sinuses and mastoids are clear. IMPRESSION: No acute intracranial hemorrhage is seen. No acute intracranial process is seen. Remote, stable bilateral posterior cerebral infarcts are seen, which are most prominent involving the right [employer] territory. Dictated by: Fernando Goff M.D. on 11/04/2024 at 17:04 Approved by: Fernando Goff M.D. on 11/04/2024 at 17:05 CT face: Radiologist's Impression: [address] [address] [address] Scan Report Signed Patient: Timmy Silva MR#: [id number] : 1955 Acct:[id number] Age/Sex: 69 / M Date of Service: 11/04/24 Loc: ED Accession Number: [id number] Procedure: CT facial bones wo con Ordering Provider: Sai Donaldson D.O. PROCEDURE: CT FACIAL BONES WO CON INDICATIONS: Fall on thinners face first TECHNIQUE: Noncontrast 2.5 mm thick axial images acquired from the mandible through the frontal sinuses, with coronal and sagittal reformatting. For radiation dose reduction, the following was used: automated exposure control, adjustment of mA and/or kV according to patient size. COMPARISON: [facility], CT, CT HEAD/BRAIN WO CON, 10/20/2023, 15:29. [facility], CT, CT CERVICAL SPINE WO CON, 11/04/2024, 17:27. [facility], CT, CT HEAD/BRAIN WO CON, 11/04/2024, 17:27. FINDINGS: Image quality: Excellent. Bones and teeth: There is stable irregularity of the maxillary spine, as on series 2, image 47. Orbital salgado are intact. Sinus salgado show no fracture or deformity. Nasal bones and septum are intact. There is mild chronic rightward nasal septal deviation, with a rightward directed bony nasal septal spur. Visualized portions of the mandible demonstrate no fractures or subluxation. Zygomatic arches are intact. Pterygoid plates are intact. Visualized portions of the skull base and auditory canals are intact. Sinuses: Mild scattered hemorrhage can be seen within the paranasal sinuses. Soft tissues: Soft tissue swelling can be seen involving the left perioral region. Soft tissue swelling is also seen of the nose. Vascular: Visualized vascular structures appear normal in the absence of contrast. Bony vascular foramina and canals are intact. IMPRESSION: No definite facial bone fracture seen. Facial soft tissue swelling is seen. Mild blood can be seen within the paranasal sinuses. Dictated by: Fernando Goff M.D. on 11/04/2024 at 17:02 Approved by: Fernando Goff M.D. on 11/04/2024 at 17:04 CT - cervical spine: Radiologist's Impression: [address] [address] [address] Scan Report Signed Patient: Timmy Silva MR#: [id number] : 1955 Acct:[id number] Age/Sex: 69 / M Date of Service: 11/04/24 Loc: ED Accession Number: [id number] Procedure: CT cervical spine wo con Ordering Provider: Sai Donaldson D.O. PROCEDURE: CT CERVICAL SPINE WO CON INDICATIONS: Fall on thinners face first TECHNIQUE: Noncontrast 3 mm thick sections acquired from the skull base to the T4 level. Sagittal and coronal reformats were then constructed. For radiation dose reduction, the following was used: automated exposure control, adjustment of mA and/or kV according to patient size. COMPARISON: [facility], CT, CT FACIAL BONES WO CON, 11/04/2024, 17:27. [facility], CT, CT HEAD/BRAIN WO CON, 11/04/2024, 17:27. [facility], CT, CT CERVICAL SPINE WO CON, 10/20/2023, 15:29. FINDINGS: Image quality: Excellent. Bones: No fractures or dislocations. Visualized superior ribs are intact. Multiple levels of significant degenerative change can be seen, which are similar to the prior and worst inferiorly. Soft tissues: Prevertebral soft tissues are normal in thickness. No paravertebral hematomas. No apical pneumothoraces. Remote posterior infarcts are seen, right worse than left. IMPRESSION: No displaced fracture or traumatic subluxation. Underlying degenerative changes are seen. Dictated by: Fernando Goff M.D. on 11/04/2024 at 17:00 Approved by: Fernando Goff M.D. on 11/04/2024 at 17:01 [facility] Narrative Medical decision making narrative: 69-year-old male with history of previous stroke 2019 and residual decreased visual acuity legal blindness, orthostatic hypotension history, had arrived quickly from sitting lying position trying to install poor painting, felt dizzy then fell after taking couple of steps, no chest pain, no shortness of breath. Struck his face on a piece of furniture. Unclear if he had any loss of consciousness. Seems to be at baseline, no shaking or seizure activity. Resolved nose bleeding. Lab data: White blood cell count 5900, hemoglobin 13.5, platelets adequate. Glucose 124. BUN 21 with creatinine 1.35. Serum CO2 23 normal, electrolytes normal. Liver functions normal. Lipase normal. Troponin negative/unmeasurable. BNP not elevated. Chest x-ray no acute changes. See radiology report. CT head noncontrast. Stable appearing bilateral posterior cerebral infarcts most prominently right [employer]. No intracranial acute hemorrhage or process. See radiology report. CT Face no acute facial bone injuries, blood and paranasal sinuses noted. See radiology report. CT Cervical spine. No acute changes. See radiology report. We will repeat interval troponin. Repeat troponin also negative/nonmeasurable. Heart rate 40 sinus rhythm, we will contact Cardiology. 2049, case discussed with cardiology Dr. Byers who recommends inpatient observation on telemetry for further observation and monitoring. PCP Jose, we will contact [facility] physician. 2114, case discussed with Dr Lama who accepts patient for admission to observation. Critical Care Time Critical Care Time Critical Care Time: Yes Total Critical Care Time: 35 Attestation: The high probability of a clinically significant, sudden or life threatening deterioration of the [cardiopulmonary, neuro, cerebrovascular,] system(s) required my full and direct attention, intervention and personal management. The aggregate critical care time was [35] minutes. This time is in addition to time spent performing reported procedures but includes the following: [x] Data Review and interpretation [x] Patient assessment and monitoring of vital signs [x] Documentation [x] Medication orders and management Discharge Plan Departure Patient Disposition: Admitted as Observation Clinical Impression: Fall from ground level, Bradycardia, Contusion of face, Epistaxis, Chronic anticoagulation Admit Date/Time: 11/04/24 21:28 Admit Provider: Vanita Lama
--- NOTE | 2024-11-04 18:26 | PC.NURSE ---
Patient is bradycardic at 38, patients resting HR is in the 50's normally. Patient denies dizziness, SOB, but says they feel very tired and fatigued. Dr Donaldson aware, this RN places pacer pads on patient
[2024-11-04 19:16] LABS: Thyroid Stimulating Hormone 2.91 uIU/mL (0.47-4.68)
[2024-11-04 19:45] LABS: Troponin I < 0.012 ng/mL (0.01-0.034)
--- NOTE | 2024-11-04 22:15 | DI.ECHO.S_ITS ---
[facility] : : [address] : [place] : : [address] : : Phone: [phone] Echocardiogram Report + + :Name: RACQUEL RAMIREZ Study Date: 11/05/2024 Height: 72 in : :Hospital ReadingLocation: Weight: 240 lb : : Gender: Male BSA: 2.3 m2 : :: 1955 Age: 69 yrs BP: 218/92 mmHg: :Reason For Study: BRADYCARDIA : :Ordering Physician: HAMMAD, : :CLAUDIA Performed By: Fahad Villatoro : :Referring: CLAUDIA CUEVA : + + Interpretation Summary 1) Normal left ventricular thickness, size, wall motion, and systolic function (EF 55-60%). 2) Normal right ventricular size and function. 3) No significant valvular abnormalities. 4) The ascending aorta is mildly enlarged at 4.3cm. 5) Hypertension present during the study (BP 218/92mmHg). 6) No prior Echo available for comparison. Procedure: A two-dimensional transthoracic echocardiogram with color flow and Doppler was performed. The study quality was technically good. There is no prior echocardiogram noted for this patient. The patient was in a bradycardic rhythm during the exam. Left Ventricle: The left ventricle is normal in size. There is normal left ventricular wall thickness. There is no ventricular septal defect visualized. The ejection fraction is estimated to be 55-60%. There are no focal wall motion abnormalities. Diastolic parameters suggest probable normal left ventricular diastolic function and normal filling pressures. Right Ventricle: The right ventricle is grossly normal size. The right ventricular systolic function is normal. Atria: The left atrial size is normal. The right atrium is mildly dilated. There is no Doppler evidence for an interatrial shunt. Mitral Valve: There is mild mitral annular calcification. The mitral valve leaflets appear normal. There is no evidence of stenosis, fluttering, or prolapse. There is trace mitral regurgitation. Aortic Valve: The aortic valve is trileaflet. The aortic valve opens well. No aortic regurgitation is present. Tricuspid Valve: The tricuspid valve leaflets are thin and pliable. There is mild tricuspid regurgitation. The right ventricular systolic pressure is estimated to be at least 38 mmHg based on an estimated right atrial pressure of 3 mm Hg. Pulmonic Valve: The pulmonic valve is not well visualized. There is trace pulmonic regurgitation. Great Vessels: The aortic root is borderline dilated. The ascending aorta is mildly enlarged. The pulmonary artery is normal size. The IVC is of normal diameter and collapses greater than 50% with a sniff. This suggests a low right atrial pressure of 3 mm Hg. Pericardium/ Pleura There is no pericardial effusion. There is no pleural effusion. MMode/2D Measurements & Calculations LVIDd: 5.6 cm LVOT diam: 2.3 cm LVIDs: 4.0 cm Ao root diam: 4.0 cm FS: 28.6 % asc Aorta Diam: 4.3 cm EPSS: 0.71 cm IVSd: 0.93 cm LVPWd: 1.0 cm LV antunez. diameter/BSA (cm/m^2): 2.4 LV sys. diameter/BSA (cm/m^2): 1.7 LA A2 area: 20.8 cm2 RA long axis: 5.6 cm LA A4 area: 26.2 cm2 RA area: 20.0 cm2 LA length (vol): 6.4 cm RA vol: 60.6 ml LA vol: 72.3 ml RA : 26.3 ml/m2 LA vol index: 31.4 ml/m2 IVC diam: 1.9 cm RVD1 (basal): 3.9 cm TAPSE: 3.0 cm Doppler Measurements & Calculations Ao V2 max: 125.3 cm/sec LVOT Max Regan: 94.0 cm/sec Ao V2 mean: 85.6 cm/sec LV V1 max P.5 mmHg Ao max P.3 mmHg LV V1 VTI: 29.5 cm Ao mean P.3 mmHg GERARDO(I,D): 3.9 cm2 Ao V2 VTI: 31.9 cm GERARDO(V,D): 3.2 cm2 sev ratio: 0.92 GERARDO indexed to BSA (cm^2/m^2): 1.7 MV E max regan: 71.4 cm/sec TR max regan: 296.3 cm/sec MV A max regan: 70.9 cm/sec TR max P.1 mmHg MV E/A: 1.0 PA V2 max: 98.0 cm/sec Med Peak E' Regan: 7.9 cm/sec PA V2 mean: 69.0 cm/sec E/E' med: 9.1 PA mean P.1 mmHg Lat Peak E' Regan: 6.6 cm/sec PA pr(Accel): 32.8 mmHg E/E' lat: 10.8 E/e' average: 9.9 MV dec time: 0.30 sec SV(LVOT): 125.4 ml Reading Physician:09:16 AM
[2024-11-04] MEDS: TAMSULOSIN 0.4 MG CAPSULE 0.8 MG PO (23:48)
[2024-11-04] MEDS: ATORVASTATIN 20 MG TABLET 40 MG PO (23:48)
[2024-11-04] MEDS: APIXABAN 5 MG TABLET PO (23:49)
[2024-11-05] VITALS (16 sets, daily range): BP systolic 131–218; BP diastolic 59–92; PULSE 39–49; RESP 9–19; O2SAT 96–100
[2024-11-05] MEDS: LOSARTAN 50 MG TABLET PO ×2 (00:02→09:11)
[2024-11-05 00:39] LABS: MRSA (Nasal) PCR NOT DETECTED (Not Detect)
[2024-11-05 05:34] LABS: Alanine Aminotransferase 30 IU/L (<50); Albumin 3.9 g/dL (3.5-5.0); Albumin Globulin Ratio 1.4 (1.0-2.8); Alkaline Phosphatase 82 U/L (38-126); Blood Urea Nitrogen 19 mg/dL (9-20); Calcium 9.0 mg/dL (8.4-10.2); Carbon Dioxide 26 mmol/L (22-32); Chloride 107 mmol/L (98-107); Estimated Glomerular Filt Rate > 60 mL/min (>60); Globulin 2.8 g/dL (1.7-4.1); Glucose 109 mg/dL (70-99); HEMOLYSIS < 15 (0-50); Magnesium 1.6 mg/dL (1.6-2.3); Potassium 3.9 mmol/L (3.4-5.1); Sodium 139 mmol/L (137-145); Total Protein 6.7 g/dL (6.3-8.2)
--- NOTE | 2024-11-05 06:50 | PC.NURSE ---
pt arrived from ER via stretcher, pt moved to bed without standing up, A&Ox4, baseline legally blind, pt oriented to bed and setting, no new bleeding from nose, denies dizziness, initally hypertensive 210/96, called and orders to restart HS home meds with an extra dose of losartan if SBP>200, losartan given with effect, SB 40s all night with occasional dips to 37 bpm, lungs clear, RA, abd soft with BS, voids small amts siena yellow urine in urinal, periph IV site patent, pt turned and repositioned self in bed, bed alarm on, call montes within reach, silicator called in am and orders for new meds placed, care ongoing
--- NOTE | 2024-11-05 08:16 | P.HP_ITS ---
History of Present Illness History of Present Illness Date Patient Seen: 11/05/24 Chief complaint: Dizzy @ home Narrative: 69-year-old male with paroxysmal AFib on chronic anticoagulation, hypertension, hyperlipidemia, history of stroke with residual decreased visual acuity. Reports was kneeling down and working on propane tank at home, got up quickly and started walking then felt dizzy. Tried to sit down on chair but ended up falling forward out of chair and hitting face on edge of piece of furniture. reports there was a subsequent 2nd fall that he does not recall. EMS was called and he was transported to the emergency room. No chest pain, shortness for breath, or seizure activity. In the ER he was noted to have sinus bradycardia in 40s, severe hypertension with systolic BP 170s to 180s as well as tenderness of nasal bridge without any crepitus or gross deformity. CBC, CMP, troponin, BNP, lipase, CXR all unremarkable. CT of C-spine showed underlying degenerative changes without acute fracture or traumatic subluxation. CT face showed facial soft tissue swelling, no definite facial bone fracture. CT head showed remote stable bilateral posterior cerebral infarcts most prominently involving right [employer] territory, no acute intracranial hemorrhage or other process noted. Cardiology was consulted from ER due to bradycardia, on-call physician recommended observation on telemetry with further monitoring. [facility] Medical History Hypertension CVA (cerebral vascular accident) Surgical History (Updated 05/03/23 @ 09:23 by Fahad Garcia MD) H/O vasectomy (~1997) H/O umbilical hernia repair (~1954) Social History household members: spouse Smoking Status: Never smoker alcohol intake: current substance use type: does not use Meds Home Medications and Allergies Home Medications ?Medication ?Instructions ?Recorded ?Confirmed ?Type losartan 50 mg tablet 50 mg PO DAILY #90 tabs 06/0111/04/24 Rx tamsulosin 0.4 mg capsule 0.8 mg (2 x 0.4 mg) PO DAILY #180 07/10/24 11/04/24 Rx caps levetiracetam 1,000 mg tablet 1,000 mg PO BID #180 tab s 08/27/24 11/04/24 Rx apixaban 5 mg tablet (Eliquis) 5 mg PO BID #180 tabs 0 09/24/24 11/04/24 Rx citalopram 20 mg tablet 30 mg (1.5 x 20 mg) PO DAILY #135 09/30/24 11/04/24 Rx tabs atorvastatin 40 mg tablet 40 mg PO DAILY #90 tabs 07/05/2811/04/24 Rx finasteride 5 mg tablet 5 mg PO DAILY #90 tabs 10/1511/04/24 Rx spironolactone 25 mg tablet 25 mg PO DAILY #30 tabs Rx Allergies Allergy/AdvReac Type Severity Reaction Status Date / Time Milk Containing Products AdvReac Mild Congested Verified 08/02/24 13:31 (Dairy) Review of Systems Review of Systems ROS: Yes All systems reviewed with the patient and are negative except as otherwise documented Exam Vital Signs (past 8 hours): - 11/05/24 04:00 Pulse Rate 43 L Blood Pressure 142/65 H Pulse Oximetry 96 Oxygen Flow Rate 0 Oxygen Delivery Method Room Air Oxygen Flow Rate 0 Narrative Exam Narrative: General: Pleasant, NAD HEENT: NC, EOMI, moist membranes CV: Sinus bradycardia, regular rhythm, normal S1-S2, no m/g/r Resp: CTAB, comfortable WOB Abd: Soft, NTND, +BS Ext: No edema Skin: Mild traumatic swelling over nasolabial region inferior to left nare Neuro: A&O x3, moves all extremities, no focal deficits Objective Imaging Chest x-ray: Radiologist's impression: XR CHEST 1V FINDINGS: Surgical changes and devices: Electronic device projects over the heart. Lungs and pleura: Lungs are clear. No pleural effusions or pneumothorax. Mediastinum: Mediastinal contours appear normal. Heart size is normal. Bones and chest wall: Remote prior right clavicle shaft fracture. IMPRESSION: No acute cardiopulmonary abnormality is seen. Approved by: Cm Marie M.D. on 11/04/2024 at 17:48 CT - cervical spine: Radiologist's impression: CT CERVICAL SPINE WO CON FINDINGS: Image quality: Excellent. Bones: No fractures or dislocations. Visualized superior ribs are intact. Multiple levels of significant degenerative change can be seen, which are similar to the prior and worst inferiorly. Soft tissues: Prevertebral soft tissues are normal in thickness. No paravertebral hematomas. No apical pneumothoraces. Remote posterior infarcts are seen, right worse than left. IMPRESSION: No displaced fracture or traumatic subluxation. Underlying degenerative changes are seen. Dictated by: Fernando Goff M.D. on 11/04/2024 at 17:00 Approved by: Fernando Goff M.D. on 11/04/2024 at 17:01 CT - face: Radiologist's impression: CT FACIAL BONES WO CON FINDINGS: Image quality: Excellent. Bones and teeth: There is stable irregularity of the maxillary spine, as on series 2, image 47. Orbital salgado are intact. Sinus salgado show no fracture or deformity. Nasal bones and septum are intact. There is mild chronic rightward nasal septal deviation, with a rightward directed bony nasal septal spur. Visualized portions of the mandible demonstrate no fractures or subluxation. Zygomatic arches are intact. Pterygoid plates are intact. Visualized portions of the skull base and auditory canals are intact. Sinuses: Mild scattered hemorrhage can be seen within the paranasal sinuses. Soft tissues: Soft tissue swelling can be seen involving the left perioral region. Soft tissue swelling is also seen of the nose. Vascular: Visualized vascular structures appear normal in the absence of contrast. Bony vascular foramina and canals are intact. IMPRESSION: No definite facial bone fracture seen. Facial soft tissue swelling is seen. Mild blood can be seen within the paranasal sinuses. Dictated by: Fernando Goff M.D. on 11/04/2024 at 17:02 Approved by: Fernando Goff M.D. on 11/04/2024 at 17:04 CT - head: Radiologist's impression: CT HEAD/BRAIN WO CON FINDINGS: Image quality: Diagnostic. CSF spaces: Basal cisterns are patent. No extra-axial fluid collections. The ventricles are symmetric in size and shape. Brain: Stable posterior infarctions are seen, which are worst involving the right [employer] territory. No intracranial bleeds or mass effect. There is cerebral volume loss, with resultant ventricular and sulcal prominence. There are periventricular and deep white matter chronic small vessel ischemic changes. There is intracranial internal carotid artery atherosclerosis. Skull and face: Calvarium and visualized facial bones appear intact, without suspicious lesions. Sinuses: Visualized sinuses and mastoids are clear. IMPRESSION: No acute intracranial hemorrhage is seen. No acute intracranial process is seen. Remote, stable bilateral posterior cerebral infarcts are seen, which are most prominent involving the right [employer] territory. Dictated by: Fernando Goff M.D. on 11/04/2024 at 17:04 Approved by: Fernando Goff M.D. on 11/04/2024 at 17:05 Labs 11/04/24 17:00 11/05/24 04:10 Labs: Laboratory Results - last 24 hr 11/04/24 11/04/24 11/04/24 17:00 19:10 23:00 WBC 5.9 RBC 4.28 L Hgb 13.5 Hct 39.4 L MCV 92.2 MCH 31.5 MCHC 34.2 RDW 13.7 Plt Count 196 Neut % (Auto) 60.5 Lymph % (Auto) 25.5 Morgan % (Auto) 10.2 Eos % (Auto) 3.3 Baso % (Auto) 0.5 Neut # (Auto) 3600 Lymph # (Auto) 1500 Morgan # (Auto) 600 Eos # (Auto) 200 Baso # (Auto) 0 PT 13.2 H INR 1.2 APTT 29 Sodium 139 Potassium 4.1 Chloride 106 Carbon Dioxide 23 BUN 21 H Creatinine 1.35 H Estimated GFR 56 L BUN/Creatinine Ratio 15.6 Glucose 124 H Calcium 9.3 Magnesium 1.7 Total Bilirubin 0.9 AST 26 ALT 34 Alkaline Phosphatase 89 Total Creatine Kinase 133 Troponin I < 0.012 < 0.012 NT-Pro-B Natriuret Pep 150 H Total Protein 7.3 Albumin 4.3 Globulin 3.0 Albumin/Globulin Ratio 1.4 Lipase 45 TSH 2.91 Nasal Screen MRSA (PCR) Not detected 11/05/24 04:10 WBC RBC Hgb Hct MCV MCH MCHC RDW Plt Count Neut % (Auto) Lymph % (Auto) Morgan % (Auto) Eos % (Auto) Baso % (Auto) Neut # (Auto) Lymph # (Auto) Morgan # (Auto) Eos # (Auto) Baso # (Auto) PT INR APTT Sodium 139 Potassium 3.9 Chloride 107 Carbon Dioxide 26 BUN 19 Creatinine 1.18 Estimated GFR > 60 BUN/Creatinine Ratio 16.1 Glucose 109 H Calcium 9.0 Magnesium 1.6 Total Bilirubin 1.2 AST 25 ALT 30 Alkaline Phosphatase 82 Total Creatine Kinase Troponin I NT-Pro-B Natriuret Pep Total Protein 6.7 Albumin 3.9 Globulin 2.8 Albumin/Globulin Ratio 1.4 Lipase TSH Nasal Screen MRSA (PCR) Assessment & Plan Assessment and plan (1) Fall from ground level: Status: Acute (2) Bradycardia: Status: Acute (3) Hypertension: Qualifiers: Hypertension type: primary hypertension Qualified Code(s): I10 - Essential (primary) hypertension Status: Chronic (4) Contusion of face: Qualifiers: Encounter type: subsequent encounter Qualified Code(s): S00.83XD - Contusion of other part of head, subsequent encounter Status: Acute (5) Epistaxis: Status: Acute (6) PAF (paroxysmal atrial fibrillation): Status: Acute (7) Chronic anticoagulation: Status: Acute (8) History of CVA (cerebrovascular accident): Status: Acute Assessment & Plan narrative: 69-year-old male with paroxysmal AFib on chronic anticoagulation, hypertension, hyperlipidemia, history of stroke with residual decreased visual acuity admitted for orthostatic hypotension in the setting of sinus bradycardia. #fall #bradycardia #hypertension Dizziness appears to be orthostatic in nature due to sudden changes in head position such as standing rapidly after sitting or kneeling. Patient has history of this issue and has been undergoing PT, during which it was noted that he became symptomatic with as little as 10 mm Hg change in systolic BP. Cardiology was consulted from ER and started patient on spironolactone this morning for hypertension. TTE unremarkable aside from severe hypertension during exam. Patient monitored for 23 hours and no longer symptomatic when standing or walking around room so was discharged home with next day follow-up in clinic for further evaluation and titration of antihypertensive regimen -continue spironolactone 25 mg daily -home amlodipine, losartan -follow-up in clinic as well as with associate attorney for further medication adjustment -consider decreasing dose of tamsulosin or finasteride, both of which contribute to vasodilation #contusion of face #epistaxis Facial trauma from fall related to orthostatic dizziness. No fracture or intracranial bleed noted on imaging, mild swelling on exam but nasal bleeding now resolved. #PAF on anticoagulation -home Eliquis #history of stroke No acute changes on imaging to indicate cerebral ischemia, neurologic exam appropriate throughout admission. -home atorvastatin Time-Based Coding :: 75 minutes spent with patient and on the chart (including review of chart, obtaining history, exam, reviewing outside data, placing orders, documenting exam and treatment plan, and counseling patient) on 11/05/2024. Quality VTE Deep Vein Thrombosis/Pulmonary Embolism Present on Admission: No [facility] [employer] Document charge(s): Yes Charge Codes Inpatient/observation care including admit and discharge same day: [id number]
[2024-11-05] MEDS: TAMSULOSIN 0.4 MG CAPSULE 0.8 MG PO (09:10)
[2024-11-05] MEDS: SPIRONOLACTONE 25 MG TABLET PO (09:11)
[2024-11-05] MEDS: APIXABAN 5 MG TABLET PO (09:11)
[2024-11-05] MEDS: AMLODIPINE 5 MG TABLET PO (09:11)
== END 2024-11-05 17:36 | disposition home or self-care (01) ==
LOC: ED 21:24 → AC 21:29 → ICU 22:28
PROVIDERS: Family Medicine; Admitting Provider Family Medicine; Emergency Provider Emergency Medicine; PCP Family Medicine; Visit Provider Family Medicine
DX: S00.83XA Contusion of other part of head, initial encounter (principal); R04.0 Epistaxis; R42 Dizziness and giddiness; R00.1 Bradycardia, unspecified; I48.0 Paroxysmal atrial fibrillation; W18.30XA Fall on same level, unspecified, initial encounter; I10 Essential (primary) hypertension; E78.5 Hyperlipidemia, unspecified; I69.398 Other sequelae of cerebral infarction; H53.8 Other visual disturbances; Z79.01 Long term (current) use of anticoagulants
CPT/HCPCS: 36415; 70450; 70486; 71045; 72125; 80053; 82550; 83690; 83735; 83880; 84443; 84484; 85025; 85610; 85730; 87797; 93005; 93306; 99284; 99291; G0378; G0390

== ENCOUNTER 2024-11-11 15:11 | Emergency (ER) | payer MEDICARE, OTHER, SELFPAY ==
[2024-11-04 22:18] VITALS: BMI 32.5
[2024-11-11] VITALS (20 sets, daily range): BP systolic 118–220; BP diastolic 62–105; PULSE 41–52; RESP 10–23; TEMP 37; O2SAT 96–100; BMI 32.5
--- NOTE | 2024-11-11 19:20 | ED.FALL ---
HPI - Fall General Chief Complaint: Fall Stated Complaint: fell,face pain,headache , difficulty breathing Time Seen by Provider: 11/11/24 15:31 Source: patient and family Mode of arrival: Ambulatory Related Data Previous Rx's ?Medication ?Instructions ?Recorded losartan 50 mg tablet 50 mg PO DAILY #90 tabs 06/13/24 tamsulosin 0.4 mg capsule 0.8 mg (2 x 0.4 mg) PO DAILY #180 07/10/24 caps levetiracetam 1,000 mg tablet 1,000 mg PO BID #180 tabs 08/27/24 citalopram 20 mg tablet 30 mg (1.5 x 20 mg) PO DAILY #135 09/30/24 tabs atorvastatin 40 mg tablet 40 mg PO DAILY #90 tabs 10/02/24 finasteride 5 mg tablet 5 mg PO DAILY #90 tabs 10/15/24 spironolactone 25 mg tablet 25 mg PO DAILY #30 tabs 11/05/24 apixaban 5 mg tablet (Eliquis) 5 mg PO BID #180 tabs 11/06/24 Allergies Allergy/AdvReac Type Severity Reaction Status Date / Time Milk Containing Products AdvReac Mild Congested Verified 11/11/24 15:24 (Dairy) Patient History Medical History Hypertension CVA (cerebral vascular accident) Surgical History (Updated 05/03/23 @ 09:23 by Fahad Garcia MD) H/O vasectomy (~1997) H/O umbilical hernia repair (~1954) Social History household members: spouse Smoking Status: Never smoker alcohol intake: current substance use type: does not use Smoking Status: Never smoker alcohol intake frequency: other Alcohol type: wine Exam Narrative Exam Narrative: GENERAL: Well-developed patient, in mild distress. HEAD: Atraumatic. Normocephalic. EYES: Pupils equal round and reactive. Extraocular motions intact. No scleral icterus. No injection or drainage. ENT: Nose without bleeding, purulent drainage. Throat without erythema, tonsillar hypertrophy or exudate. Airway patent. NECK: Trachea midline. Non tender CARDIOVASCULAR: Regular rate and rhythm without murmurs, gallops, or rubs. RESPIRATORY: Clear to auscultation. Breath sounds equal bilaterally. No wheezes, rales, or rhonchi. GASTROINTESTINAL: Abdomen soft, non-tender, nondistended. EXTREMITIES: No edema or joint tenderness. BACK: Nontender without deformity or crepitance. No flank tenderness. NEURO: AOx3. Motor functions grossly nonfocal. SKIN: No rash or erythema of visible areas Initial Vital Signs Initial Vital Signs: Vital Signs Temperature 98.6 F 11/11/24 15:24 Pulse Rate 52 L 11/11/24 15:24 Respiratory Rate 20 11/11/24 15:24 Blood Pressure 118/62 11/11/24 15:24 Pulse Oximetry 96 11/11/24 15:24 Oxygen Delivery Method Room Air 11/11/24 15:24 Course Orders Ordered: ED Orders 11/11/24 19:09 CT cervical spine wo con Stat CT head/brain wo con Stat 11/11/24 19:11 CT facial bones wo con Stat Vital Signs Vital signs: Vital Signs - 8 hr 11/11/24 15:24 Temperature 98.6 F Pulse Rate 52 L Respiratory Rate 20 Blood Pressure 118/62 Pulse Oximetry 96 Oxygen Delivery Method Room Air Discharge Plan Departure Prescriptions: No Action Eliquis 5 mg tablet 5 mg PO BID Qty: 180 3RF losartan 50 mg tablet 50 mg PO DAILY Qty: 90 3RF tamsulosin 0.4 mg capsule 0.8 mg PO DAILY Qty: 180 1RF levetiracetam 1,000 mg tablet 1,000 mg PO BID Qty: 180 2RF citalopram 20 mg tablet 30 mg PO DAILY Qty: 135 1RF atorvastatin 40 mg tablet 40 mg PO DAILY Qty: 90 1RF finasteride 5 mg tablet 5 mg PO DAILY Qty: 90 1RF spironolactone 25 mg Tablet 25 mg PO DAILY Qty: 30 2RF Referrals: Fahad Garcia MD [Primary Care Provider, Family Practice]
--- NOTE | 2024-11-11 19:29 | ED.GENADULT ---
HPI - General Adult General Chief complaint: Fall Stated complaint: fell,face pain,headache , difficulty breathing Time Seen by Provider: 11/11/24 15:31 Source: patient and family Mode of arrival: Ambulatory History of Present Illness HPI narrative: 69-year-old male reports trouble breathing and shortness of breath, unable to breathe well through his nose, now one-week after a fall, takes blood thinner medications, was seen here, had CT brain/face/Csp imaging at that time reportedly negative, had low heart rate, elevated blood pressure, was admitted to observation here, discharged on spironolactone with cessation of supplemental potassium. No other medication changes known to the patient. He is still taking his Eliquis anticoagulation. No new intercurrent injury. Has trouble breathing through his nose, has some blood clots, and nasal congestion. Feels more short of breath, attributing this to inability to breathe through his nose. Denies chest pain. Related Data Previous Rx's ?Medication ?Instructions ?Recorded losartan 50 mg tablet 50 mg PO DAILY #90 tabs 06/13/24 tamsulosin 0.4 mg capsule 0.8 mg (2 x 0.4 mg) PO DAILY #180 07/10/24 caps levetiracetam 1,000 mg tablet 1,000 mg PO BID #180 tabs 08/27/24 citalopram 20 mg tablet 30 mg (1.5 x 20 mg) PO DAILY #135 09/30/24 tabs atorvastatin 40 mg tablet 40 mg PO DAILY #90 tabs 10/02/24 finasteride 5 mg tablet 5 mg PO DAILY #90 tabs 10/15/24 spironolactone 25 mg tablet 25 mg PO DAILY #30 tabs 11/05/24 apixaban 5 mg tablet (Eliquis) 5 mg PO BID #180 tabs 11/06/24 Allergies Allergy/AdvReac Type Severity Reaction Status Date / Time Milk Containing Products AdvReac Mild Congested Verified 11/11/24 15:24 (Dairy) Patient History Medical History Hypertension CVA (cerebral vascular accident) Surgical History (Updated 05/03/23 @ 09:23 by Fahad Garcia MD) H/O vasectomy (~1997) H/O umbilical hernia repair (~1955) Social History household members: spouse Smoking Status: Never smoker alcohol intake: current substance use type: does not use Smoking Status: Never smoker alcohol intake frequency: other Alcohol type: wine Exam Narrative Exam Narrative: GENERAL: Well-developed patient, in mild distress.Nasal congestion sounding phonation. HEAD: Atraumatic. Normocephalic. EYES: Pupils equal round and reactive. Extraocular motions intact. No scleral icterus. No injection or drainage. ENT: Nose without bleeding, purulent drainage. Could not see visible clot or changes in nasal septum/mucosa. Nasal phonation noted on speech. Throat without erythema, tonsillar hypertrophy or exudate. Airway patent. NECK: Trachea midline. Non tender CARDIOVASCULAR: Regular rate and rhythm without murmurs, gallops, or rubs. RESPIRATORY: Clear to auscultation. Breath sounds equal bilaterally. No wheezes, rales, or rhonchi. No retractions, speaking in full sentences. GASTROINTESTINAL: Abdomen soft, non-tender, nondistended. EXTREMITIES: No edema or joint tenderness. BACK: Nontender without deformity or crepitance. No flank tenderness. NEURO: AOx3. Motor functions grossly nonfocal. SKIN: No rash or erythema of visible areas Initial Vital Signs Initial Vital Signs: Vital Signs Temperature 98.6 F 11/11/24 15:24 Pulse Rate 52 L 11/11/24 15:24 Respiratory Rate 20 11/11/24 15:24 Blood Pressure 118/62 11/11/24 15:24 Pulse Oximetry 96 11/11/24 15:24 Oxygen Delivery Method Room Air 11/11/24 15:24 Course Orders Ordered: ED Orders 11/11/24 19:28 XR chest 1V Stat EKG-12 Lead Stat 11/11/24 19:44 EKG-12 Lead Routine 11/11/24 20:20 Complete Blood Count AUTO DIFF Stat Comprehensive Metabolic Panel Stat Lipase Stat Troponin & CK Cardiac Panel Stat 11/11/24 22:28 Troponin I Stat Discontinued Medications Hydrocodone Bitart/Acetaminophen (Hydrocodone/Acet 5/325 Tablet) 1 tab PO NOW ONE Stop: 11/11/24 20:47 Last Admin: 11/11/24 21:26 Dose: Not Given Documented By: Hydrocodone Bitart/Acetaminophen (Hydrocodone/Acet 5/325 Prepack) 1 bottle MISC DIRECTED ONE Stop: 11/11/24 20:47 Last Admin: 11/11/24 23:25 Dose: 1 bottle Documented By: CHADWICK Hydralazine HCl (Hydralazine 20 Mg/Ml Vial) 5 mg IV NOW ONE Stop: 11/11/24 19:29 Last Admin: 11/11/24 19:40 Dose: Not Given Documented By: RENATE Oxymetazoline HCl (Oxymetazoline Nasal [place] 30 Ml) 2 sprays NASAL NOW ONE Stop: 11/11/24 19:28 Last Admin: 11/11/24 19:45 Dose: 2 sprays Documented By: ILIANA Vital Signs Vital signs: Vital Signs - 8 hr 11/11/24 19:30 11/11/24 19:33 11/11/24 19:33 Pulse Rate 41 L 43 L Respiratory Rate 10 L 19 Blood Pressure 220/96 H Pulse Oximetry 96 98 Oxygen Delivery Method Room Air 11/11/24 20:00 11/11/24 20:01 11/11/24 20:01 Pulse Rate 42 L 42 L Respiratory Rate 13 15 Blood Pressure 201/90 H Pulse Oximetry 99 99 Oxygen Delivery Method 11/11/24 20:24 11/11/24 20:24 11/11/24 20:30 Pulse Rate 42 L 43 L Respiratory Rate 15 16 Blood Pressure 200/88 H Pulse Oximetry 99 97 Oxygen Delivery Method Room Air 11/11/24 20:52 11/11/24 21:00 11/11/24 21:30 Pulse Rate 45 L 46 L 46 L Respiratory Rate 16 15 12 Blood Pressure 168/98 H Pulse Oximetry 98 98 98 Oxygen Delivery Method Room Air 11/11/24 21:51 11/11/24 22:00 11/11/24 22:00 Pulse Rate 50 L 45 L Respiratory Rate 14 17 Blood Pressure 198/105 H Pulse Oximetry 100 98 Oxygen Delivery Method Room Air 11/11/24 22:30 11/11/24 22:31 11/11/24 22:31 Pulse Rate 44 L 44 L Respiratory Rate 13 13 Blood Pressure 182/90 H Pulse Oximetry 98 99 Oxygen Delivery Method Room Air 11/11/24 23:00 11/11/24 23:30 Pulse Rate 46 L 46 L Respiratory Rate 14 16 Blood Pressure 190/92 H Pulse Oximetry 97 99 Oxygen Delivery Method Room Air Medical Decision Making Lab Data Lab results reviewed: Yes I reviewed the patient's lab results. Lab results narrative: White blood cell count 8600, hemoglobin 12.6, platelets adequate. Glucose 104. BUN 19 with creatinine 1.38, serum CO2 normal, normal electrolytes. Slight ALT elevation, other liver functions normal. Lipase normal. Troponin negative/unmeasurable x2 interval sets. 11/11/24 20:20 11/11/24 20:20 Labs: Lab Results 11/11/24 11/11/24 Range/Units 20:20 22:28 WBC 8.6 (4.5-11.0) X10^3/uL RBC 3.96 L (4.5-5.9) X10^6/uL Hgb 12.6 L (13.5-17.5) g/dL Hct 37.0 L (41-53) % MCV 93.5 (80-100) fL MCH 31.8 (26-34) PG MCHC 34.0 (30-36) % RDW 13.7 (11.6-14.8) % Plt Count 228 (150-400) X10^3/uL Neut % (Auto) 72.6 (50-75) % Lymph % (Auto) 14.0 L (25-40) % Ray % (Auto) 11.4 (3-14) % Eos % (Auto) 1.6 L (2-4) % Baso % (Auto) 0.4 (0-2) % Neut # (Auto) 6300 (9531-9744) /uL Lymph # (Auto) 1200 (0940-2970) /uL Ray # (Auto) 1000 H (0-900) /uL Eos # (Auto) 100 (0-450) /uL Baso # (Auto) 0 (0-100) /uL Sodium 140 (137-145) mmol/L Potassium 4.2 (3.4-5.1) mmol/L Chloride 105 (98-107) mmol/L Carbon Dioxide 28 (22-32) mmol/L BUN 19 (9-20) mg/dL Creatinine 1.38 H (0.66-1.25) mg/dL Estimated GFR 55 L (>60) mL/min BUN/Creatinine Ratio 13.8 (6-22) Glucose 104 H (70-99) mg/dL Calcium 9.1 (8.4-10.2) mg/dL Total Bilirubin 1.1 (0.2-1.3) mg/dL AST 38 (17-59) IU/L ALT 53 H (<50) IU/L Alkaline Phosphatase 115 (38-126) U/L Total Creatine Kinase 49 L (55-170) U/L Troponin I < 0.012 < 0.012 (0.01-0.034) ng/mL Total Protein 7.6 (6.3-8.2) g/dL Albumin 4.1 (3.5-5.0) g/dL Globulin 3.5 (1.7-4.1) g/dL Albumin/Globulin Ratio 1.2 (1.0-2.8) Lipase 24 (23-300) U/L Imaging Data Chest x-ray: Radiologist's Impression: [address] [address] XRay Report Signed Patient: Timmy Silva MR#: [id number] : 1955 Acct:[id number] Age/Sex: 69 / M Date of Service: 11/11/24 Loc: ED Accession Number: [id number] Procedure: XR chest 1V Ordering Provider: Derick Pickard MD PROCEDURE: XR CHEST 1V INDICATIONS: chest pain TECHNIQUE: One view of the chest was acquired. COMPARISON: [facility], CR, XR CHEST 1V, 11/04/2024, 17:25. [facility], CR, XR CHEST 1V, 07/26/2024, 18:01. FINDINGS: Surgical changes and devices: Cardiac loop recorder. Lungs and pleura: Lungs are clear. No pleural effusions or pneumothorax. Mediastinum: Mediastinal contours appear normal. Heart size is normal. Bones and chest wall: No suspicious bony lesions. Overlying soft tissues appear unremarkable. Nonunionized chronic right clavicle fracture. IMPRESSION: No acute cardiopulmonary abnormality is seen. Dictated by: Minor Edward M.D. on 11/11/2024 at 19:57 Approved by: Minor Edward M.D. on 11/11/2024 at 19:59 ECG Data Attestation: I personally reviewed and interpreted this ECG as follows: Interpretation: 1944, sinus bradycardia with rate of 43, no obvious ST segment elevation or depression changes. NM 132, QRS 84, QTC 402. MDM Narrative Medical decision making narrative: 69-year-old male seen recently for ground level fall on blood thinners here with CT brain/face/Csp imaging negative, found to have sinus bradycardia and hypertension, admitted then overnight, discharged on new Aldactone medication for elevated blood pressure, still having heart rate in the 40s, has shortness of breath, nasal congestion, abnormal nasal phonation, no new nose/face injury, feels more short of breath, attributes this to his nasal congestion. Elevated blood pressure but not actionable. Trial of Afrin nasal spray both sides, tolerated well, increased breathing both nares, feels improved. EKG, chest x-ray, labs pending. EKG without obvious ischemic changes, bradycardia noted as in previous visit mid 40s. Chest x-ray shows no acute changes. See radiology report. Lab data: White blood cell count 8600, hemoglobin 12.6, platelets adequate. Glucose 104. BUN 19 with creatinine 1.38, serum CO2 normal, normal electrolytes. Slight ALT elevation, other liver functions normal. Lipase normal. Troponin negative/unmeasurable x2 interval sets. Shortness of breath symptoms better after Afrin nasal spray. Systolic blood pressure 160-180 on manual measurements. Dispensed Afrin, 1 puff each near twice daily up to 3 days. Could consider topical nasal steroid. CT face showed no nasal fracture from prior visit. Encouraged to follow up with PCP for further titration of blood pressure control medical regimen. Sinus bradycardia persisting, no BB/CCB/clonidine on med list. Follow up with PCP in the next couple of days to reassess symptoms. Return precautions discussed. Discharged home with family. Discharge Plan Departure Patient Disposition: Home Clinical Impression: Nasal congestion, Contusion of nose, Hypertension, Bradycardia, Shortness of breath Activity Restrictions/Additional Instructions: Recent fall with prior visit CT imaging head and face and cervical spine imaging, chest x-ray at that time as well, showing no acute injury patterns. Nasal congestion problems, slow heart rate, admitted overnight from that visit, discharged on blood pressure medication spironolactone with discontinuation of potassium supplement. No new injury. Nasal congestion abnormal phonation on exam noted. We discussed blood pressure elevation that could happen with nasal decongestant spray, trial of Afrin spray, that helps you to breathe better through your nose. Chest x-ray and EKG and serial blood tests not suggestive of alternate reasons for shortness of breath. Shortness of breath might have been due to nasal blockage passage from recent injury, no fractures noted on prior facial bone imaging. Blood pressure elevated but not enough to warrant IV therapy, automated cuff blood pressures were higher than manual blood pressure measurements. Recheck symptoms with your regular doctor tomorrow in clinic, your heart rate has been in the 40s as it was during last evaluation and during hospital stay. Continue taking your chronic blood pressure and other medications as directed. Recheck symptoms with your regular doctor in the next couple of days in clinic. Return to this/nearest emergency department for any change worsening symptoms or any concerns prior. Requests for pain medication for nasal injury. Home pack of hydrocodone/acetaminophen provided. Prescriptions: No Action Eliquis 5 mg tablet 5 mg PO BID Qty: 180 3RF losartan 50 mg tablet 50 mg PO DAILY Qty: 90 3RF tamsulosin 0.4 mg capsule 0.8 mg PO DAILY Qty: 180 1RF levetiracetam 1,000 mg tablet 1,000 mg PO BID Qty: 180 2RF citalopram 20 mg tablet 30 mg PO DAILY Qty: 135 1RF atorvastatin 40 mg tablet 40 mg PO DAILY Qty: 90 1RF finasteride 5 mg tablet 5 mg PO DAILY Qty: 90 1RF spironolactone 25 mg Tablet 25 mg PO DAILY Qty: 30 2RF Referrals: Fahad Garcia MD [Primary Care Provider, Family Practice] Stand Alone Forms: Patient Portal/API
--- NOTE | 2024-11-11 19:43 | EKG_ITS ---
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
--- NOTE | 2024-11-11 19:44 | EKG_ITS ---
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
[2024-11-11] MEDS: OXYMETAZOLINE NASAL SPRAY 30 ML 2 SPRAYS NASAL (19:45)
[2024-11-11 20:42] LABS: Add Manual Diff / Slide Review NO; Hematocrit 37.0 % (41-53); Hemoglobin 12.6 g/dL (13.5-17.5); Lymphocytes Absolute Auto 1200 /uL (1100-4500); Mean Corpuscular HGB Conc 34.0 % (30-36); Mean Corpuscular Hemoglobin 31.8 PG (26-34); Mean Corpuscular Volume 93.5 fL (80-100); Platelet Count 228 X10^3/uL (150-400)
[2024-11-11 20:46] LABS: Alanine Aminotransferase 53 IU/L (<50); Albumin 4.1 g/dL (3.5-5.0); Albumin Globulin Ratio 1.2 (1.0-2.8); Alkaline Phosphatase 115 U/L (38-126); Blood Urea Nitrogen 19 mg/dL (9-20); Calcium 9.1 mg/dL (8.4-10.2); Carbon Dioxide 28 mmol/L (22-32); Chloride 105 mmol/L (98-107); Creatine Kinase 49 U/L (55-170); Estimated Glomerular Filt Rate 55 mL/min (>60); Globulin 3.5 g/dL (1.7-4.1); Glucose 104 mg/dL (70-99); HEMOLYSIS < 15 (0-50); Lipase 24 U/L (23-300); Sodium 140 mmol/L (137-145); Total Protein 7.6 g/dL (6.3-8.2)
[2024-11-11 20:58] LABS: Troponin I < 0.012 ng/mL (0.01-0.034)
[2024-11-11 21:05] LABS: Potassium 4.2 mmol/L (3.4-5.1)
[2024-11-11 23:07] LABS: Troponin I < 0.012 ng/mL (0.01-0.034)
--- NOTE | 2024-11-11 23:51 | PC.NURSE ---
Pt's BP 190/92 manually. Neeraj Lewis aware, no new orders. Pt states he has not taken his home BP medications that he takes every night around 2100. Pt states he will take his BP meds when he gets home. Dr. Pickard deems safe for PR.
== END 2024-11-11 23:54 | disposition home or self-care (01) ==
PROVIDERS: Emergency Provider Emergency Medicine; PCP Family Medicine
DX: S00.33XD Contusion of nose, subsequent encounter (principal); R00.1 Bradycardia, unspecified; R06.02 Shortness of breath; R09.81 Nasal congestion; R07.9 Chest pain, unspecified; Z79.01 Long term (current) use of anticoagulants
CPT/HCPCS: 36415; 71045; 80053; 82550; 83690; 84484; 85025; 93005; 99283; 99284

== ENCOUNTER → 2024-12-04 16:14 | Outpatient (CLI) | payer MEDICARE, OTHER, SELFPAY ==
[2024-11-04 22:18] VITALS: BMI 32.5
--- NOTE | 2024-12-04 16:15 | DI.CT.S_ITS ---
PROCEDURE: CT ANGIO HEAD AND NECK INDICATIONS: Dizziness, recurrent falls, bradycardia, h/o stroke TECHNIQUE: After the administration of intravenous contrast, 1 mm thick sections acquired from the aortic arch through the [place] of [place]. 3-dimensional qmblhtz-bzpfwxbzo-zdxypflpjk (MIP) and/or volume rendering reformats were acquired of the central intracranial vasculature and neck separately. For radiation dose reduction, the following was used: automated exposure control, adjustment of mA and/or kV according to patient size. COMPARISON: [facility], CT, CT CERVICAL SPINE WO CON, 10/20/2023, 15:29. [facility], CT, CT HEAD/BRAIN WO CON, 10/20/2023, 15:29. [facility], CT, CT HEAD/BRAIN WO CON, 11/04/2024, 17:27. FINDINGS: Image quality: Limited by bolus timing, with venous contamination. Cerebral CT Angiogram: Internal carotid arteries: No acute findings. Intracranial ICA are patent with no significant stenosis. No occlusion. No aneurysm. Anterior cerebral arteries: There is a hypoplastic right A1 segment, with a corresponding robust left A1 segment. This is considered to be a normal developmental variant of the [place] of [place], of typically no clinical consequence. The flow within the paired anterior cerebral arteries is otherwise normal and symmetric. The anterior communicating artery is seen. No aneurysms are seen. Middle cerebral arteries: Unremarkable. No significant stenosis. No occlusion. No aneurysm. Posterior cerebral arteries: Unremarkable. No significant stenosis. No occlusion. No aneurysm. Basilar artery: Unremarkable. No significant stenosis. No occlusion. No aneurysm. Vertebral arteries: Unremarkable as visualized. Dural venous sinuses: Unremarkable given phase of enhancement. Other: A stable infarct can be seen involving a broad area the posterior aspect of the right posterior cerebral hemisphere. There is also a smaller infarct seen involving the posterior inferior aspect of the left cerebral hemisphere. Neck CT Angiogram: Internal carotid arteries: Atherosclerotic irregularity can be seen involving both carotid bifurcation regions, yet without a hemodynamically significant stenosis. No significant stenosis. No dissection or occlusion. Common carotid arteries: Unremarkable. No significant stenosis. No dissection or occlusion. External carotid arteries: Unremarkable. No occlusion. Vertebral arteries: Unremarkable. No significant stenosis. No dissection or occlusion. Aortic Arch and Mediastinum: Partially visualized aortic arch unremarkable without evidence of aneurysm. Origins of the great vessels unremarkable. Other: Moderate cervical spine degenerative change can be seen, which is worst inferiorly. There is a remote, unhealed right mid clavicle fracture, as on series 5, image 297. IMPRESSION: No significant intracranial arterial abnormality is seen. No significant abnormality is seen within the arteries of the neck, with note made of age-appropriate atherosclerotic irregularity of the carotid bifurcation regions. 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 Bilateral remote, stable posterior cerebral infarctions are seen, right larger than left. Remote, unhealed right clavicle fracture Any quantitative measurements of stenosis were performed using NASCET criteria. Dictated by: Fernando Goff M.D. on 12/04/2024 at 16:56 Approved by: Fernando Goff M.D. on 12/04/2024 at 17:01
== END ==
PROVIDERS: PCP Family Medicine; Referring Provider Family Medicine; Visit Provider Family Medicine
DX: R42 Dizziness and giddiness (principal); R00.1 Bradycardia, unspecified; I48.0 Paroxysmal atrial fibrillation; M47.812 Spondylosis without myelopathy or radiculopathy, cervical region; S42.021K Displaced fracture of shaft of right clavicle, subsequent encounter for fracture with nonunion; Z86.73 Personal history of transient ischemic attack (TIA), and cerebral infarction without residual deficits
CPT/HCPCS: 70496; 70498; Q9967

== ENCOUNTER → 2025-03-14 16:27 | Outpatient (CLI) | payer MEDICARE, OTHER, SELFPAY ==
[2024-11-04 22:18] VITALS: BMI 32.5
[2025-03-14 17:17] LABS: Influenza A - CEPHEID Flu A NEGATIVE (NEGATIVE); Influenza B - CEPHEID Flu B NEGATIVE (NEGATIVE)
[2025-03-14 17:23] LABS: COVID-19 CEPHEID 4-PLEX PCR Negative (Negative)
== END ==
PROVIDERS: PCP Family Medicine; Visit Provider Nurse Practitioner Family
DX: R05.1 Acute cough (principal)
CPT/HCPCS: 87637